=== PATIENT | male | born 1955 | race Caucasian/White ===

== ENCOUNTER 2017-08-18 09:37 | Observation (INO) | payer OTHER ==
[~2017-08-18] VITALS: Ht 172.7 cm; Wt 86.0 kg
[~2017-08-18 09:37] MED LIST: Bactrim 400-801 EACH PO; K-Dur20 MEQ PO; Keflex500 MG PO; LISHYD2025 PO; MECL25 PO
[2017-08-18] MEDS ORDERED: Prilosec Otc20 MG PO (10:20)
[2017-08-18 10:31] LABS: BASOPHILS ABSOLUTE AUTO 0.04 K/mm3 (0.00-0.23); BASOPHILS PERCENT AUTO 0 % (0-2); EOSINOPHILS ABSOLUTE AUTO 0.13 K/mm3 (0.00-0.68); EOSINOPHILS PERCENT AUTO 1 % (0-6); Hematocrit 44.1 % (37.0-53.0); Hemoglobin 14.8 g/dL (13.5-17.5); IMMATURE GRAN ABSOLUTE AUTO 0.03 K/mm3 (0.00-0.10); IMMATURE GRAN PERCENT AUTO 0 % (0-1); LYMPHOCYTES ABSOLUTE AUTO 2.19 K/mm3 (0.84-5.20); LYMPHOCYTES PERCENT AUTO 19 % (21-46); MONOCYTES ABSOLUTE AUTO 0.75 K/mm3 (0.16-1.47); MONOCYTES PERCENT AUTO 7 % (4-13); Mean Corpuscular HGB 31.8 pg (26.0-34.0); Mean Corpuscular HGB Conc 33.6 g/dL (31.5-36.5); Mean Corpuscular Volume 95 fL (80-100); NEUTROPHILS ABSOLUTE AUTO 8.21 K/mm3 (1.96-9.15); NEUTROPHILS PERCENT AUTO 72 % (41-73); RDW Coefficient Variation 12.1 % (11.7-14.2); RDW Standard Deviation 42.5 fL (35.1-46.3); Red Blood Cell Count 4.65 M/mm3 (4.30-5.90); White Blood Cell Count 11.35 K/mm3 (4.00-11.30)
[2017-08-18 10:40] LABS: Mean Platelet Volume 10.3 fL (9.1-12.4); Platelet Count 327 K/mm3 (150-400)
[2017-08-18 10:43] LABS: Alanine Aminotransfer (ALT/SGP 15 U/L (12-78); Albumin, Blood 3.7 g/dL (3.4-5.0); Albumin/Globulin Ratio 0.8 (0.8-1.8); Alk Phos 91 U/L (50-136); Anion Gap 10 mmol/L (6-16); Aspartate Aminotrans (AST/SGOT 17 U/L (12-37); Bilirubin, Total 0.6 mg/dL (0.1-1.0); Blood Urea Nitrogen 12 mg/dL (8-24); Bun/Creatinine Ratio 14.8 (12.0-20.0); CO2, Blood 24 mmol/L (21-32); Calcium, Blood 8.8 mg/dL (8.5-10.1); Chloride, Blood 103 mmol/L (98-108); Creatinine, Blood 0.81 mg/dL (0.60-1.20); Globulin, Blood 4.4 g/dL (2.2-4.0); Glomerular Filtration Rate >60 (60-); Glucose, Blood 77 mg/dL (70-99); Potassium, Blood 3.4 mmol/L (3.5-5.5); Sodium, Blood 137 mmol/L (136-145); Total Protein, Blood 8.1 g/dL (6.4-8.2)
[2017-08-18 10:57] LABS: Source, Urine Clean Catch
[2017-08-18 11:24] LABS: Bilirubin, Urine Neg (Neg); Blood, Urine 4+ (Neg); Glucose Qualitative, Urine Neg (Neg); Ketones, Urine 3+ (Neg); Leukocyte Esterase, Urine Neg (Neg); Nitrite, Urine Neg (Neg); Protein, Urine 2+ (Neg); Specific Gravity, Urine 1.015 (1.003-1.022); Urobilinogen, Urine NORM (Normal)
[2017-08-18 11:30] LABS: Appearance, Urine Clear (Clear); Color, Urine Yellow (P-Yellow)
[2017-08-18 11:31] LABS: Granular Casts 0-2 /lpf (0); Mucus Light (0-Heavy)
[2017-08-18 11:32] LABS: Bacteria Few /hpf; Squamous Epithelial Cells Few /hpf (Few); White Blood Cells, Urine 0-2 /hpf (0-5)
[2017-08-19 05:44] LABS: BASOPHILS ABSOLUTE AUTO 0.01 K/mm3 (0.00-0.23); BASOPHILS PERCENT AUTO 0 % (0-2); EOSINOPHILS PERCENT AUTO 0 % (0-6); Hematocrit 40.4 % (37.0-53.0); Hemoglobin 13.8 g/dL (13.5-17.5); IMMATURE GRAN ABSOLUTE AUTO 0.03 K/mm3 (0.00-0.10); IMMATURE GRAN PERCENT AUTO 0 % (0-1); LYMPHOCYTES ABSOLUTE AUTO 0.88 K/mm3 (0.84-5.20); LYMPHOCYTES PERCENT AUTO 8 % (21-46); MONOCYTES ABSOLUTE AUTO 0.11 K/mm3 (0.16-1.47); MONOCYTES PERCENT AUTO 1 % (4-13); Mean Corpuscular HGB 32.2 pg (26.0-34.0); Mean Corpuscular HGB Conc 34.2 g/dL (31.5-36.5); Mean Corpuscular Volume 94 fL (80-100); Mean Platelet Volume 10.1 fL (9.1-12.4); NEUTROPHILS ABSOLUTE AUTO 10.44 K/mm3 (1.96-9.15); NEUTROPHILS PERCENT AUTO 91 % (41-73); Platelet Count 332 K/mm3 (150-400); RDW Coefficient Variation 12.1 % (11.7-14.2); Red Blood Cell Count 4.29 M/mm3 (4.30-5.90); White Blood Cell Count 11.47 K/mm3 (4.00-11.30)
[2017-08-19 06:08] LABS: Anion Gap 11 mmol/L (6-16); Blood Urea Nitrogen 19 mg/dL (8-24); CO2, Blood 24 mmol/L (21-32); Calcium, Blood 8.3 mg/dL (8.5-10.1); Chloride, Blood 103 mmol/L (98-108); Glomerular Filtration Rate >60 (60-); Glucose, Blood 115 mg/dL (70-99); Potassium, Blood 3.8 mmol/L (3.5-5.5); Sodium, Blood 138 mmol/L (136-145)
[2017-08-19] MEDS ORDERED: LISI20 PO (12:22)
[2017-08-19] MEDS ORDERED: METO50ER PO (12:24)
[2017-08-19] MEDS ORDERED: SACC250C PO (12:25)
[2017-08-19] MEDS ORDERED: PRED20 PO (12:27)
[2017-08-19] MEDS ORDERED: AMOX875 PO (12:31)
[2017-09-11] MEDS ORDERED: Flagyl500 MG PO (17:16)
[2017-09-11] MEDS ORDERED: Cipro500 MG PO (17:16)
[2017-09-11] MEDS ORDERED: Zofran Odt4 MG PO (17:16)
== END 2017-08-19 13:08 | disposition home or self-care (01) ==
LOC: ER 09:37 → MEDS 09:38 → ER 12:05 → MEDS 15:32 → ENPENDDIS 08-19 11:00 → MEDS 08-19 13:08
PROVIDERS: Emergency Medicine; Internal Medicine
DX: R10.32 Left lower quadrant pain (principal); K59.00 Constipation, unspecified; I16.0 Hypertensive urgency; K21.9 Gastro-esophageal reflux disease without esophagitis; J44.9 Chronic obstructive pulmonary disease, unspecified; F17.200 Nicotine dependence, unspecified, uncomplicated; I72.9 Aneurysm of unspecified site; Z79.899 Other long term (current) drug therapy; Z88.5 Allergy status to narcotic agent; Z91.012 Allergy to eggs; Z87.11 Personal history of peptic ulcer disease; Z86.79 Personal history of other diseases of the circulatory system
CPT/HCPCS: 36415; 71045; 74176; 80048; 80053; 81001; 83690; 85025; 85651; 96361; 96365; 96366; 96367; 96375; 96376; 99285; G0378; J0295; J0744; J1940; J2270; J2405; J2920; J2930; J3480; J7030; J7120

== ENCOUNTER 2017-09-11 12:51 | Emergency (ER) | END 2017-09-11 18:49 | disposition home or self-care (01) ==

== ENCOUNTER 2017-09-14 13:22 | Inpatient (IN) | payer OTHER ==
[~2017-09-14] VITALS: Ht 170.2 cm; Wt 98.6 kg
[~2017-09-14 13:22] MED LIST changes: +AMOX875 PO; +Cipro500 MG PO; +Flagyl500 MG PO; +LISI20 PO; +METO50ER PO; +PRED20 PO; +Prilosec Otc20 MG PO; +SACC250C PO; +Zofran Odt4 MG PO
[2017-09-14 15:37] LABS: BASOPHILS ABSOLUTE AUTO 0.02 K/mm3 (0.00-0.23); BASOPHILS PERCENT AUTO 0 % (0-2); EOSINOPHILS ABSOLUTE AUTO 0.01 K/mm3 (0.00-0.68); EOSINOPHILS PERCENT AUTO 0 % (0-6); Hematocrit 43.1 % (37.0-53.0); Hemoglobin 14.9 g/dL (13.5-17.5); IMMATURE GRAN ABSOLUTE AUTO 0.06 K/mm3 (0.00-0.10); IMMATURE GRAN PERCENT AUTO 1 % (0-1); LYMPHOCYTES ABSOLUTE AUTO 1.06 K/mm3 (0.84-5.20); LYMPHOCYTES PERCENT AUTO 13 % (21-46); MONOCYTES ABSOLUTE AUTO 1.08 K/mm3 (0.16-1.47); MONOCYTES PERCENT AUTO 13 % (4-13); Mean Corpuscular HGB 31.8 pg (26.0-34.0); Mean Corpuscular HGB Conc 34.6 g/dL (31.5-36.5); Mean Corpuscular Volume 92 fL (80-100); Mean Platelet Volume 9.8 fL (9.1-12.4); NEUTROPHILS ABSOLUTE AUTO 6.27 K/mm3 (1.96-9.15); NEUTROPHILS PERCENT AUTO 74 % (41-73); Platelet Count 293 K/mm3 (150-400); RDW Coefficient Variation 12.6 % (11.7-14.2); RDW Standard Deviation 42.5 fL (35.1-46.3); Red Blood Cell Count 4.68 M/mm3 (4.30-5.90)
[2017-09-14 15:53] LABS: Alanine Aminotransfer (ALT/SGP 18 U/L (12-78); Albumin, Blood 3.2 g/dL (3.4-5.0); Albumin/Globulin Ratio 0.9 (0.8-1.8); Alk Phos 70 U/L (50-136); Anion Gap 13 mmol/L (6-16); Aspartate Aminotrans (AST/SGOT 21 U/L (12-37); Bilirubin, Total 0.5 mg/dL (0.1-1.0); Blood Urea Nitrogen 13 mg/dL (8-24); Bun/Creatinine Ratio 16.1 (12.0-20.0); CO2, Blood 25 mmol/L (21-32); Chloride, Blood 91 mmol/L (98-108); Creatinine, Blood 0.81 mg/dL (0.60-1.20); Globulin, Blood 3.6 g/dL (2.2-4.0); Glomerular Filtration Rate >60 (60-); Glucose, Blood 79 mg/dL (70-99); Sodium, Blood 129 mmol/L (136-145); Total Protein, Blood 6.8 g/dL (6.4-8.2)
[2017-09-14 16:22] LABS: U Amphetamine Screen Not Detected; U Barbituate Screen Not Detected; U Benzodiazapine Screen Not Detected; U Buprenorphine Screen Not Detected; U Cannabinoids Screen Not Detected; U Cocaine Screen Not Detected; U Methadone Screen Not Detected; U Methamphetamine Screen Not Detected; U Opiates Screen Not Detected; U Oxycodone Screen Not Detected; U Phencyclidine Screen Not Detected; U Propoxyphene Screen Not Detected
[2017-09-15 05:38] LABS: BASOPHILS ABSOLUTE AUTO 0.03 K/mm3 (0.00-0.23); BASOPHILS PERCENT AUTO 0 % (0-2); EOSINOPHILS ABSOLUTE AUTO 0.04 K/mm3 (0.00-0.68); EOSINOPHILS PERCENT AUTO 1 % (0-6); Hematocrit 39.6 % (37.0-53.0); Hemoglobin 13.8 g/dL (13.5-17.5); IMMATURE GRAN ABSOLUTE AUTO 0.08 K/mm3 (0.00-0.10); IMMATURE GRAN PERCENT AUTO 1 % (0-1); LYMPHOCYTES ABSOLUTE AUTO 1.42 K/mm3 (0.84-5.20); LYMPHOCYTES PERCENT AUTO 18 % (21-46); MONOCYTES ABSOLUTE AUTO 1.18 K/mm3 (0.16-1.47); MONOCYTES PERCENT AUTO 15 % (4-13); Mean Corpuscular HGB 32.1 pg (26.0-34.0); Mean Corpuscular HGB Conc 34.8 g/dL (31.5-36.5); Mean Corpuscular Volume 92 fL (80-100); Mean Platelet Volume 9.5 fL (9.1-12.4); NEUTROPHILS ABSOLUTE AUTO 5.12 K/mm3 (1.96-9.15); NEUTROPHILS PERCENT AUTO 65 % (41-73); Platelet Count 276 K/mm3 (150-400); RDW Coefficient Variation 12.8 % (11.7-14.2); White Blood Cell Count 7.87 K/mm3 (4.00-11.30)
[2017-09-15 06:07] LABS: Alanine Aminotransfer (ALT/SGP 18 U/L (12-78); Albumin, Blood 2.9 g/dL (3.4-5.0); Albumin/Globulin Ratio 0.9 (0.8-1.8); Alk Phos 61 U/L (50-136); Anion Gap 11 mmol/L (6-16); Aspartate Aminotrans (AST/SGOT 21 U/L (12-37); Bilirubin, Total 0.5 mg/dL (0.1-1.0); Blood Urea Nitrogen 12 mg/dL (8-24); Bun/Creatinine Ratio 15.3 (12.0-20.0); CO2, Blood 24 mmol/L (21-32); Calcium, Blood 7.6 mg/dL (8.5-10.1); Chloride, Blood 95 mmol/L (98-108); Creatinine, Blood 0.78 mg/dL (0.60-1.20); Globulin, Blood 3.2 g/dL (2.2-4.0); Glomerular Filtration Rate >60 (60-); Glucose, Blood 81 mg/dL (70-99); Potassium, Blood 3.4 mmol/L (3.5-5.5); Sodium, Blood 130 mmol/L (136-145); Total Protein, Blood 6.1 g/dL (6.4-8.2)
[2017-09-15 11:59] LABS: PCO2 Arterial 37.5 mmHg (35-45); PO2 Arterial 58.4 mmHg (80-100); pH Blood Arterial 7.45 (7.35-7.45)
[2017-09-16 05:42] LABS: BASOPHILS ABSOLUTE AUTO 0.02 K/mm3 (0.00-0.23); BASOPHILS PERCENT AUTO 0 % (0-2); EOSINOPHILS ABSOLUTE AUTO 0.05 K/mm3 (0.00-0.68); EOSINOPHILS PERCENT AUTO 1 % (0-6); Hematocrit 37.6 % (37.0-53.0); IMMATURE GRAN ABSOLUTE AUTO 0.12 K/mm3 (0.00-0.10); IMMATURE GRAN PERCENT AUTO 1 % (0-1); LYMPHOCYTES PERCENT AUTO 16 % (21-46); MONOCYTES ABSOLUTE AUTO 1.61 K/mm3 (0.16-1.47); MONOCYTES PERCENT AUTO 17 % (4-13); Mean Corpuscular HGB 31.9 pg (26.0-34.0); Mean Corpuscular HGB Conc 34.6 g/dL (31.5-36.5); Mean Corpuscular Volume 92 fL (80-100); NEUTROPHILS PERCENT AUTO 65 % (41-73); Platelet Count 279 K/mm3 (150-400); RDW Coefficient Variation 12.8 % (11.7-14.2); RDW Standard Deviation 43.8 fL (35.1-46.3); Red Blood Cell Count 4.07 M/mm3 (4.30-5.90)
[2017-09-16 06:02] LABS: Alanine Aminotransfer (ALT/SGP 20 U/L (12-78); Albumin, Blood 2.7 g/dL (3.4-5.0); Albumin/Globulin Ratio 0.8 (0.8-1.8); Alk Phos 57 U/L (50-136); Anion Gap 11 mmol/L (6-16); Aspartate Aminotrans (AST/SGOT 25 U/L (12-37); Bilirubin, Total 0.5 mg/dL (0.1-1.0); Blood Urea Nitrogen 8 mg/dL (8-24); Bun/Creatinine Ratio 11.9 (12.0-20.0); CO2, Blood 26 mmol/L (21-32); Calcium, Blood 7.5 mg/dL (8.5-10.1); Chloride, Blood 92 mmol/L (98-108); Creatinine, Blood 0.67 mg/dL (0.60-1.20); Globulin, Blood 3.2 g/dL (2.2-4.0); Glomerular Filtration Rate >60 (60-); Glucose, Blood 82 mg/dL (70-99); Potassium, Blood 3.3 mmol/L (3.5-5.5); Sodium, Blood 129 mmol/L (136-145); Total Protein, Blood 5.9 g/dL (6.4-8.2)
[2017-09-17 05:26] LABS: BASOPHILS ABSOLUTE AUTO 0.03 K/mm3 (0.00-0.23); BASOPHILS PERCENT AUTO 0 % (0-2); EOSINOPHILS ABSOLUTE AUTO 0.06 K/mm3 (0.00-0.68); EOSINOPHILS PERCENT AUTO 1 % (0-6); Hematocrit 38.5 % (37.0-53.0); Hemoglobin 13.3 g/dL (13.5-17.5); IMMATURE GRAN ABSOLUTE AUTO 0.12 K/mm3 (0.00-0.10); IMMATURE GRAN PERCENT AUTO 1 % (0-1); LYMPHOCYTES ABSOLUTE AUTO 1.19 K/mm3 (0.84-5.20); LYMPHOCYTES PERCENT AUTO 13 % (21-46); MONOCYTES PERCENT AUTO 15 % (4-13); Mean Corpuscular HGB 31.9 pg (26.0-34.0); Mean Corpuscular HGB Conc 34.5 g/dL (31.5-36.5); Mean Corpuscular Volume 92 fL (80-100); Mean Platelet Volume 10.3 fL (9.1-12.4); NEUTROPHILS ABSOLUTE AUTO 6.36 K/mm3 (1.96-9.15); NEUTROPHILS PERCENT AUTO 69 % (41-73); Platelet Count 305 K/mm3 (150-400); RDW Coefficient Variation 12.8 % (11.7-14.2); RDW Standard Deviation 43.7 fL (35.1-46.3); Red Blood Cell Count 4.17 M/mm3 (4.30-5.90); White Blood Cell Count 9.16 K/mm3 (4.00-11.30)
[2017-09-17 05:28] LABS: Anion Gap 12 mmol/L (6-16); Blood Urea Nitrogen 6 mg/dL (8-24); Bun/Creatinine Ratio 9.1 (12.0-20.0); CO2, Blood 27 mmol/L (21-32); Calcium, Blood 7.5 mg/dL (8.5-10.1); Chloride, Blood 91 mmol/L (98-108); Creatinine, Blood 0.66 mg/dL (0.60-1.20); Glomerular Filtration Rate >60 (60-); Glucose, Blood 90 mg/dL (70-99); Sodium, Blood 130 mmol/L (136-145)
[2017-09-17 17:47] LABS: PCO2 Arterial 31.1 mmHg (35-45); pH Blood Arterial 7.53 (7.35-7.45)
[2017-09-17 17:48] LABS: PO2 Arterial 48.2 mmHg (80-100)
[2017-09-18 04:24] LABS: BASOPHILS ABSOLUTE AUTO 0.04 K/mm3 (0.00-0.23); BASOPHILS PERCENT AUTO 0 % (0-2); EOSINOPHILS ABSOLUTE AUTO 0.01 K/mm3 (0.00-0.68); EOSINOPHILS PERCENT AUTO 0 % (0-6); Hematocrit 37.5 % (37.0-53.0); Hemoglobin 12.7 g/dL (13.5-17.5); IMMATURE GRAN ABSOLUTE AUTO 0.18 K/mm3 (0.00-0.10); IMMATURE GRAN PERCENT AUTO 1 % (0-1); LYMPHOCYTES ABSOLUTE AUTO 1.16 K/mm3 (0.84-5.20); LYMPHOCYTES PERCENT AUTO 6 % (21-46); MONOCYTES ABSOLUTE AUTO 1.24 K/mm3 (0.16-1.47); MONOCYTES PERCENT AUTO 7 % (4-13); Mean Corpuscular HGB 31.9 pg (26.0-34.0); Mean Corpuscular HGB Conc 33.9 g/dL (31.5-36.5); Mean Corpuscular Volume 94 fL (80-100); Mean Platelet Volume 9.9 fL (9.1-12.4); NEUTROPHILS ABSOLUTE AUTO 15.55 K/mm3 (1.96-9.15); NEUTROPHILS PERCENT AUTO 86 % (41-73); Platelet Count 321 K/mm3 (150-400); RDW Coefficient Variation 13.2 % (11.7-14.2); RDW Standard Deviation 45.7 fL (35.1-46.3); Red Blood Cell Count 3.98 M/mm3 (4.30-5.90); White Blood Cell Count 18.18 K/mm3 (4.00-11.30)
[2017-09-18 04:42] LABS: Anion Gap 12 mmol/L (6-16); Blood Urea Nitrogen 6 mg/dL (8-24); Bun/Creatinine Ratio 7.3 (12.0-20.0); CO2, Blood 27 mmol/L (21-32); Calcium, Blood 7.4 mg/dL (8.5-10.1); Chloride, Blood 92 mmol/L (98-108); Creatinine, Blood 0.82 mg/dL (0.60-1.20); Glomerular Filtration Rate >60 (60-); Glucose, Blood 77 mg/dL (70-99); Magnesium, Blood 1.8 mg/dL (1.6-2.4); Potassium, Blood 3.2 mmol/L (3.5-5.5); Sodium, Blood 131 mmol/L (136-145)
[2017-09-18 05:27] LABS: PCO2 Arterial 36.3 mmHg (35-45); PO2 Arterial 68.2 mmHg (80-100); pH Blood Arterial 7.47 (7.35-7.45)
[2017-09-18 09:35] LABS: Vancomycin, Trough 25.8 ug/mL (5.0-10.0)
[2017-09-19 03:35] LABS: BASOPHILS ABSOLUTE AUTO 0.02 K/mm3 (0.00-0.23); BASOPHILS PERCENT AUTO 0 % (0-2); EOSINOPHILS ABSOLUTE AUTO 0.06 K/mm3 (0.00-0.68); EOSINOPHILS PERCENT AUTO 1 % (0-6); Hematocrit 36.2 % (37.0-53.0); Hemoglobin 12.4 g/dL (13.5-17.5); IMMATURE GRAN ABSOLUTE AUTO 0.13 K/mm3 (0.00-0.10); IMMATURE GRAN PERCENT AUTO 1 % (0-1); LYMPHOCYTES ABSOLUTE AUTO 1.09 K/mm3 (0.84-5.20); LYMPHOCYTES PERCENT AUTO 9 % (21-46); MONOCYTES ABSOLUTE AUTO 1.36 K/mm3 (0.16-1.47); MONOCYTES PERCENT AUTO 12 % (4-13); Mean Corpuscular HGB 31.3 pg (26.0-34.0); Mean Corpuscular HGB Conc 34.3 g/dL (31.5-36.5); Mean Platelet Volume 9.7 fL (9.1-12.4); NEUTROPHILS PERCENT AUTO 77 % (41-73); Platelet Count 316 K/mm3 (150-400); RDW Coefficient Variation 13.1 % (11.7-14.2); RDW Standard Deviation 43.7 fL (35.1-46.3); Red Blood Cell Count 3.96 M/mm3 (4.30-5.90); White Blood Cell Count 11.56 K/mm3 (4.00-11.30)
[2017-09-19 03:38] LABS: Mean Corpuscular Volume 91 fL (80-100)
[2017-09-19 03:55] LABS: Alanine Aminotransfer (ALT/SGP 21 U/L (12-78); Albumin, Blood 2.5 g/dL (3.4-5.0); Albumin/Globulin Ratio 0.8 (0.8-1.8); Alk Phos 57 U/L (50-136); Anion Gap 15 mmol/L (6-16); Aspartate Aminotrans (AST/SGOT 29 U/L (12-37); Bilirubin, Total 0.9 mg/dL (0.1-1.0); Blood Urea Nitrogen 9 mg/dL (8-24); Bun/Creatinine Ratio 9.6 (12.0-20.0); CO2, Blood 24 mmol/L (21-32); Calcium, Blood 7.2 mg/dL (8.5-10.1); Chloride, Blood 94 mmol/L (98-108); Creatinine, Blood 0.93 mg/dL (0.60-1.20); Glomerular Filtration Rate >60 (60-); Glucose, Blood 73 mg/dL (70-99); Potassium, Blood 2.5 mmol/L (3.5-5.5); Sodium, Blood 133 mmol/L (136-145); Total Protein, Blood 5.5 g/dL (6.4-8.2)
[2017-09-19 19:54] LABS: Vancomycin, Trough 18.8 ug/mL (5.0-10.0)
[2017-09-20 03:28] LABS: BASOPHILS ABSOLUTE AUTO 0.02 K/mm3 (0.00-0.23); BASOPHILS PERCENT AUTO 0 % (0-2); EOSINOPHILS ABSOLUTE AUTO 0.05 K/mm3 (0.00-0.68); EOSINOPHILS PERCENT AUTO 0 % (0-6); Hematocrit 38.6 % (37.0-53.0); Hemoglobin 13.2 g/dL (13.5-17.5); IMMATURE GRAN ABSOLUTE AUTO 0.13 K/mm3 (0.00-0.10); IMMATURE GRAN PERCENT AUTO 1 % (0-1); LYMPHOCYTES ABSOLUTE AUTO 1.21 K/mm3 (0.84-5.20); LYMPHOCYTES PERCENT AUTO 10 % (21-46); MONOCYTES ABSOLUTE AUTO 1.23 K/mm3 (0.16-1.47); MONOCYTES PERCENT AUTO 11 % (4-13); Mean Corpuscular HGB 31.1 pg (26.0-34.0); Mean Corpuscular HGB Conc 34.2 g/dL (31.5-36.5); Mean Corpuscular Volume 91 fL (80-100); Mean Platelet Volume 9.7 fL (9.1-12.4); NEUTROPHILS ABSOLUTE AUTO 9.05 K/mm3 (1.96-9.15); NEUTROPHILS PERCENT AUTO 77 % (41-73); Platelet Count 370 K/mm3 (150-400); RDW Coefficient Variation 13.2 % (11.7-14.2); RDW Standard Deviation 44.3 fL (35.1-46.3); Red Blood Cell Count 4.25 M/mm3 (4.30-5.90); White Blood Cell Count 11.69 K/mm3 (4.00-11.30)
[2017-09-20 03:47] LABS: Anion Gap 13 mmol/L (6-16); Blood Urea Nitrogen 7 mg/dL (8-24); Bun/Creatinine Ratio 8.5 (12.0-20.0); CO2, Blood 23 mmol/L (21-32); Calcium, Blood 7.4 mg/dL (8.5-10.1); Chloride, Blood 97 mmol/L (98-108); Creatinine, Blood 0.82 mg/dL (0.60-1.20); Glomerular Filtration Rate >60 (60-); Glucose, Blood 90 mg/dL (70-99); Potassium, Blood 2.6 mmol/L (3.5-5.5); Sodium, Blood 133 mmol/L (136-145)
[2017-09-21 05:11] LABS: Hematocrit 38.9 % (37.0-53.0); Hemoglobin 13.2 g/dL (13.5-17.5); Mean Corpuscular HGB 31.5 pg (26.0-34.0); Mean Corpuscular HGB Conc 33.9 g/dL (31.5-36.5); Mean Corpuscular Volume 93 fL (80-100); Platelet Count 350 K/mm3 (150-400); RDW Coefficient Variation 14.2 % (11.7-14.2); RDW Standard Deviation 48.1 fL (35.1-46.3); Red Blood Cell Count 4.19 M/mm3 (4.30-5.90); White Blood Cell Count 11.32 K/mm3 (4.00-11.30)
[2017-09-21 05:33] LABS: Albumin, Blood 2.5 g/dL (3.4-5.0); Anion Gap 13 mmol/L (6-16); Blood Urea Nitrogen 10 mg/dL (8-24); Bun/Creatinine Ratio 6.9 (12.0-20.0); CO2, Blood 22 mmol/L (21-32); Calcium, Blood 7.2 mg/dL (8.5-10.1); Chloride, Blood 99 mmol/L (98-108); Creatinine, Blood 1.44 mg/dL (0.60-1.20); Glomerular Filtration Rate 53 (60-); Glucose, Blood 85 mg/dL (70-99); Magnesium, Blood 1.8 mg/dL (1.6-2.4); Phosphorus, Blood 2.2 mg/dL (2.5-4.9); Potassium, Blood 3.1 mmol/L (3.5-5.5); Sodium, Blood 134 mmol/L (136-145)
[2017-09-22 04:38] LABS: Bun/Creatinine Ratio 7.9 (12.0-20.0); Calcium, Blood 7.4 mg/dL (8.5-10.1); Creatinine, Blood 1.52 mg/dL (0.60-1.20); Magnesium, Blood 2.1 mg/dL (1.6-2.4); Phosphorus, Blood 2.5 mg/dL (2.5-4.9)
[2017-09-23 01:35] LABS: BASOPHILS ABSOLUTE AUTO 0.01 K/mm3 (0.00-0.23); BASOPHILS PERCENT AUTO 0 % (0-2); EOSINOPHILS ABSOLUTE AUTO 0.05 K/mm3 (0.00-0.68); EOSINOPHILS PERCENT AUTO 1 % (0-6); Hematocrit 36.7 % (37.0-53.0); Hemoglobin 12.5 g/dL (13.5-17.5); IMMATURE GRAN ABSOLUTE AUTO 0.06 K/mm3 (0.00-0.10); IMMATURE GRAN PERCENT AUTO 1 % (0-1); LYMPHOCYTES ABSOLUTE AUTO 1.39 K/mm3 (0.84-5.20); LYMPHOCYTES PERCENT AUTO 15 % (21-46); MONOCYTES ABSOLUTE AUTO 1.31 K/mm3 (0.16-1.47); MONOCYTES PERCENT AUTO 14 % (4-13); Mean Corpuscular HGB 31.6 pg (26.0-34.0); Mean Corpuscular HGB Conc 34.1 g/dL (31.5-36.5); Mean Corpuscular Volume 93 fL (80-100); Mean Platelet Volume 9.7 fL (9.1-12.4); NEUTROPHILS ABSOLUTE AUTO 6.62 K/mm3 (1.96-9.15); NEUTROPHILS PERCENT AUTO 70 % (41-73); Platelet Count 319 K/mm3 (150-400); RDW Coefficient Variation 14.4 % (11.7-14.2); RDW Standard Deviation 49.1 fL (35.1-46.3); Red Blood Cell Count 3.95 M/mm3 (4.30-5.90); White Blood Cell Count 9.44 K/mm3 (4.00-11.30)
[2017-09-23 01:54] LABS: Alanine Aminotransfer (ALT/SGP 16 U/L (12-78); Albumin, Blood 2.4 g/dL (3.4-5.0); Albumin/Globulin Ratio 0.7 (0.8-1.8); Alk Phos 48 U/L (50-136); Anion Gap 7 mmol/L (6-16); Aspartate Aminotrans (AST/SGOT 24 U/L (12-37); Bilirubin, Total 0.5 mg/dL (0.1-1.0); Blood Urea Nitrogen 16 mg/dL (8-24); CO2, Blood 28 mmol/L (21-32); Calcium, Blood 7.4 mg/dL (8.5-10.1); Chloride, Blood 103 mmol/L (98-108); Globulin, Blood 3.5 g/dL (2.2-4.0); Glomerular Filtration Rate 47 (60-); Glucose, Blood 130 mg/dL (70-99); Magnesium, Blood 2.2 mg/dL (1.6-2.4); Phosphorus, Blood 1.9 mg/dL (2.5-4.9); Sodium, Blood 138 mmol/L (136-145); Total Protein, Blood 5.9 g/dL (6.4-8.2); Triglycerides 122 mg/dL (30-160)
[2017-09-23 05:47] LABS: PCO2 Arterial 37.2 mmHg (35-45); PO2 Arterial 59.4 mmHg (80-100); pH Blood Arterial 7.49 (7.35-7.45)
[2017-09-23 18:18] LABS: Bun/Creatinine Ratio 12.4 (12.0-20.0); Calcium, Blood 7.7 mg/dL (8.5-10.1); Creatinine, Blood 1.61 mg/dL (0.60-1.20); Potassium, Blood 2.8 mmol/L (3.5-5.5)
[2017-09-24 04:53] LABS: Albumin, Blood 2.3 g/dL (3.4-5.0); Anion Gap 8 mmol/L (6-16); Blood Urea Nitrogen 20 mg/dL (8-24); Bun/Creatinine Ratio 13.5 (12.0-20.0); CO2, Blood 29 mmol/L (21-32); Calcium, Blood 7.5 mg/dL (8.5-10.1); Chloride, Blood 102 mmol/L (98-108); Creatinine, Blood 1.48 mg/dL (0.60-1.20); Glomerular Filtration Rate 51 (60-); Glucose, Blood 116 mg/dL (70-99); Magnesium, Blood 2.2 mg/dL (1.6-2.4); Phosphorus, Blood 2.2 mg/dL (2.5-4.9); Sodium, Blood 139 mmol/L (136-145)
[2017-09-25 05:18] LABS: BASOPHILS ABSOLUTE AUTO 0.01 K/mm3 (0.00-0.23); BASOPHILS PERCENT AUTO 0 % (0-2); EOSINOPHILS ABSOLUTE AUTO 0.03 K/mm3 (0.00-0.68); EOSINOPHILS PERCENT AUTO 0 % (0-6); Hematocrit 33.6 % (37.0-53.0); Hemoglobin 11.6 g/dL (13.5-17.5); IMMATURE GRAN ABSOLUTE AUTO 0.05 K/mm3 (0.00-0.10); IMMATURE GRAN PERCENT AUTO 1 % (0-1); LYMPHOCYTES PERCENT AUTO 17 % (21-46); MONOCYTES ABSOLUTE AUTO 0.99 K/mm3 (0.16-1.47); MONOCYTES PERCENT AUTO 13 % (4-13); Mean Corpuscular HGB 31.9 pg (26.0-34.0); Mean Corpuscular HGB Conc 34.5 g/dL (31.5-36.5); Mean Corpuscular Volume 92 fL (80-100); Mean Platelet Volume 9.4 fL (9.1-12.4); NEUTROPHILS ABSOLUTE AUTO 5.22 K/mm3 (1.96-9.15); NEUTROPHILS PERCENT AUTO 69 % (41-73); Platelet Count 295 K/mm3 (150-400); RDW Coefficient Variation 14.6 % (11.7-14.2); Red Blood Cell Count 3.64 M/mm3 (4.30-5.90)
[2017-09-25 05:35] LABS: Albumin, Blood 2.3 g/dL (3.4-5.0); Anion Gap 10 mmol/L (6-16); Blood Urea Nitrogen 19 mg/dL (8-24); Bun/Creatinine Ratio 14.8 (12.0-20.0); CO2, Blood 27 mmol/L (21-32); Calcium, Blood 7.3 mg/dL (8.5-10.1); Chloride, Blood 102 mmol/L (98-108); Creatinine, Blood 1.28 mg/dL (0.60-1.20); Glomerular Filtration Rate >60 (60-); Glucose, Blood 107 mg/dL (70-99); Magnesium, Blood 1.9 mg/dL (1.6-2.4); Potassium, Blood 2.7 mmol/L (3.5-5.5); Sodium, Blood 139 mmol/L (136-145)
[2017-09-26 05:51] LABS: Albumin, Blood 2.6 g/dL (3.4-5.0); Anion Gap 9 mmol/L (6-16); Blood Urea Nitrogen 17 mg/dL (8-24); Bun/Creatinine Ratio 13.2 (12.0-20.0); CO2, Blood 25 mmol/L (21-32); Calcium, Blood 7.5 mg/dL (8.5-10.1); Chloride, Blood 102 mmol/L (98-108); Creatinine, Blood 1.29 mg/dL (0.60-1.20); Glomerular Filtration Rate 60 (60-); Glucose, Blood 89 mg/dL (70-99); Potassium, Blood 2.6 mmol/L (3.5-5.5); Sodium, Blood 136 mmol/L (136-145)
[2017-09-27 04:31] LABS: Hemoglobin 11.3 g/dL (13.5-17.5); Mean Corpuscular HGB 32.2 pg (26.0-34.0); Mean Corpuscular HGB Conc 34.2 g/dL (31.5-36.5); Mean Corpuscular Volume 94 fL (80-100); Platelet Count 215 K/mm3 (150-400); RDW Coefficient Variation 15.4 % (11.7-14.2); RDW Standard Deviation 52.2 fL (35.1-46.3); Red Blood Cell Count 3.51 M/mm3 (4.30-5.90); White Blood Cell Count 3.65 K/mm3 (4.00-11.30)
[2017-09-27 04:50] LABS: Albumin, Blood 2.4 g/dL (3.4-5.0); Anion Gap 10 mmol/L (6-16); Blood Urea Nitrogen 16 mg/dL (8-24); Bun/Creatinine Ratio 10.7 (12.0-20.0); CO2, Blood 24 mmol/L (21-32); Calcium, Blood 6.7 mg/dL (8.5-10.1); Chloride, Blood 101 mmol/L (98-108); Creatinine, Blood 1.49 mg/dL (0.60-1.20); Glomerular Filtration Rate 50 (60-); Glucose, Blood 95 mg/dL (70-99); Phosphorus, Blood 4.4 mg/dL (2.5-4.9); Potassium, Blood 3.2 mmol/L (3.5-5.5); Sodium, Blood 135 mmol/L (136-145)
[2017-09-27] MEDS ORDERED: Acetaminophen325 M1 PO (13:08)
[2017-09-27] MEDS ORDERED: Melatonin5 M1 PO (13:09)
[2017-09-27] MEDS ORDERED: Kaon-Cl40 MEQ/15 PO (13:10)
[2017-09-27] MEDS ORDERED: VANCOMYCIN125 MG/2.5 PO (13:11)
[2017-09-27] MEDS ORDERED: SACC250C PO (13:13)
== END 2017-09-27 15:25 | disposition home or self-care (01) | DRG 371 ==
LOC: ER 13:22 → MEDS 18:51 → PCU 18:51 → SURS 18:51 → ICUE 09-17 18:07 → PCU 09-19 15:38 → MEDS 09-25 17:31 → ENPENDDIS 09-27 10:56 → MEDS 09-27 15:25
PROVIDERS: Emergency Medicine; Internal Medicine; Pharmacist; Surgery
PROC: 3E0234Z Introduction of Serum, Toxoid and Vaccine into Muscle, Percutaneous Approach (ICD-10-PCS; 2017-09-15)
PROC: 3E0336Z Introduction of Nutritional Substance into Peripheral Vein, Percutaneous Approach (ICD-10-PCS; principal; 2017-09-22)
DX: A04.72 Enterocolitis due to Clostridium difficile, not specified as recurrent (principal); J96.01 Acute respiratory failure with hypoxia; R78.81 Bacteremia; E87.1 Hypo-osmolality and hyponatremia; J44.1 Chronic obstructive pulmonary disease with (acute) exacerbation; E87.6 Hypokalemia; Z23 Encounter for immunization; Z87.11 Personal history of peptic ulcer disease; I10 Essential (primary) hypertension; E83.39 Other disorders of phosphorus metabolism; E66.9 Obesity, unspecified; G47.00 Insomnia, unspecified
CPT/HCPCS: 36415; 36569; 36600; 71045; 71046; 71260; 74018; 74177; 80048; 80053; 80069; 80202; 82803; 82947; 83690; 83735; 83880; 84100; 84132; 84478; 85025; 85027; 87040; 87493; 93005; 93010; 94640; 94760; 96361; 96374; 96375; 96376; 99285; C1751; C9113; J0360; J0744; J1170; J1650; J1885; J1940; J2001; J2060; J2405; J2543; J3370; J3411; J3480; J7030; J7050; J7060; J7120; Q9967

== ENCOUNTER 2017-09-27 19:34 | Inpatient (IN) | payer OTHER ==
[~2017-09-27] VITALS: Ht 170.2 cm; Wt 82.2 kg
[~2017-09-27 19:34] MED LIST changes: +Acetaminophen325 M1 PO; +Kaon-Cl40 MEQ/15 PO; +Melatonin5 M1 PO; +VANCOMYCIN125 MG/2.5 PO
[2017-09-27 20:04] LABS: Source, Urine Catheter
[2017-09-27 20:08] LABS: BASOPHILS ABSOLUTE AUTO 0.01 K/mm3 (0.00-0.23); BASOPHILS PERCENT AUTO 0 % (0-2); EOSINOPHILS PERCENT AUTO 0 % (0-6); Hematocrit 40.1 % (37.0-53.0); Hemoglobin 13.5 g/dL (13.5-17.5); Mean Corpuscular HGB 31.6 pg (26.0-34.0); Mean Corpuscular HGB Conc 33.7 g/dL (31.5-36.5); Mean Corpuscular Volume 94 fL (80-100); Mean Platelet Volume 10.4 fL (9.1-12.4); Platelet Count 224 K/mm3 (150-400); RDW Coefficient Variation 15.2 % (11.7-14.2); RDW Standard Deviation 52.3 fL (35.1-46.3); Red Blood Cell Count 4.27 M/mm3 (4.30-5.90); White Blood Cell Count 4.41 K/mm3 (4.00-11.30)
[2017-09-27 20:09] LABS: Bilirubin, Urine Neg (Neg); Blood, Urine 4+ (Neg); Glucose Qualitative, Urine Neg (Neg); IMMATURE GRAN ABSOLUTE AUTO 0.04 K/mm3 (0.00-0.10); IMMATURE GRAN PERCENT AUTO 1 % (0-1); Ketones, Urine Neg (Neg); LYMPHOCYTES ABSOLUTE AUTO 0.23 K/mm3 (0.84-5.20); LYMPHOCYTES PERCENT AUTO 5 % (21-46); Leukocyte Esterase, Urine 1+ (Neg); MONOCYTES ABSOLUTE AUTO 0.11 K/mm3 (0.16-1.47); MONOCYTES PERCENT AUTO 3 % (4-13); NEUTROPHILS ABSOLUTE AUTO 4.02 K/mm3 (1.96-9.15); NEUTROPHILS PERCENT AUTO 91 % (41-73); Nitrite, Urine Neg (Neg); Protein, Urine 2+ (Neg); Urobilinogen, Urine NORM (Normal)
[2017-09-27 20:16] LABS: Appearance, Urine Clear (Clear); Color, Urine Yellow (P-Yellow)
[2017-09-27 20:17] LABS: Bacteria Few /hpf; Squamous Epithelial Cells Not Seen /hpf (Few)
[2017-09-27 20:18] LABS: Granular Casts 0-2 /lpf (0); WBC Cast 0-2 /lpf (0)
[2017-09-27 20:20] LABS: International Normalized Ratio 1.61
[2017-09-27 20:28] LABS: Albumin, Blood 3.1 g/dL (3.4-5.0); Albumin/Globulin Ratio 0.8 (0.8-1.8); Bilirubin, Total 0.7 mg/dL (0.1-1.0); Bun/Creatinine Ratio 11.5 (12.0-20.0); Calcium, Blood 7.2 mg/dL (8.5-10.1); Creatinine, Blood 1.56 mg/dL (0.60-1.20); Total Protein, Blood 7.1 g/dL (6.4-8.2)
[2017-09-27 20:40] LABS: Influenza A Positive (NEGATIVE); Influenza B Negative (NEGATIVE)
[2017-09-28 00:04] LABS: Adenovirus F 40/41 Not Detected (NOT DETECT); Astrovirus Not Detected (NOT DETECT); Campylobacter Sp Not Detected (NOT DETECT); Cryptosporidium Not Detected (NOT DETECT); Cyclospora Cayetanensis Not Detected (NOT DETECT); E. Coli O157 Not Detected (NOT DETECT); Entamoeba Histolytica Not Detected (NOT DETECT); Enteroaggregative E. coli-EAEC Not Detected (NOT DETECT); Enteropathogenic E. coli-EPEC Not Detected (NOT DETECT); Enterotoxigenic E. coli-ETEC Not Detected (NOT DETECT); Giardia Lamblia Not Detected (NOT DETECT); Norovirus GI/GII Not Detected (NOT DETECT); Plesiomonas Shigelloides Not Detected (NOT DETECT); Rotavirus A Not Detected (NOT DETECT); Salmonella Sp Not Detected (NOT DETECT); Sapovirus Not Detected (NOT DETECT); Shiga Toxin-prod E. coli-STEC Not Detected (NOT DETECT); Shigella/Enteroin E. coli-EIEC Not Detected (NOT DETECT); Vibrio Cholerae Not Detected (NOT DETECT); Vibrio Sp Not Detected (NOT DETECT); Yersinia Enterocolitica Not Detected (NOT DETECT)
[2017-09-28 04:59] LABS: Bun/Creatinine Ratio 11.3 (12.0-20.0); Calcium, Blood 6.7 mg/dL (8.5-10.1); Creatinine, Blood 1.42 mg/dL (0.60-1.20); Magnesium, Blood 1.5 mg/dL (1.6-2.4); Potassium, Blood 3.3 mmol/L (3.5-5.5)
[2017-09-28 12:37] LABS: Bun/Creatinine Ratio 10.4 (12.0-20.0); Calcium, Blood 7.1 mg/dL (8.5-10.1); Creatinine, Blood 1.34 mg/dL (0.60-1.20); Magnesium, Blood 1.7 mg/dL (1.6-2.4); Potassium, Blood 3.4 mmol/L (3.5-5.5)
[2017-09-28 21:38] LABS: Vancomycin, Trough 8.4 ug/mL (5.0-10.0)
[2017-09-29 05:14] LABS: BASOPHILS PERCENT AUTO 0 % (0-2); EOSINOPHILS PERCENT AUTO 0 % (0-6); Hematocrit 40.6 % (37.0-53.0); Hemoglobin 13.6 g/dL (13.5-17.5); Mean Corpuscular HGB 31.2 pg (26.0-34.0); Mean Corpuscular HGB Conc 33.5 g/dL (31.5-36.5); Mean Corpuscular Volume 93 fL (80-100); Mean Platelet Volume 10.9 fL (9.1-12.4); Platelet Count 171 K/mm3 (150-400); RDW Standard Deviation 51.4 fL (35.1-46.3); Red Blood Cell Count 4.36 M/mm3 (4.30-5.90)
[2017-09-29 05:16] LABS: IMMATURE GRAN ABSOLUTE AUTO 0.03 K/mm3 (0.00-0.10); IMMATURE GRAN PERCENT AUTO 1 % (0-1); LYMPHOCYTES ABSOLUTE AUTO 0.48 K/mm3 (0.84-5.20); LYMPHOCYTES PERCENT AUTO 18 % (21-46); MONOCYTES PERCENT AUTO 4 % (4-13); NEUTROPHILS ABSOLUTE AUTO 2.09 K/mm3 (1.96-9.15); NEUTROPHILS PERCENT AUTO 77 % (41-73)
[2017-09-29 05:43] LABS: Magnesium, Blood 1.6 mg/dL (1.6-2.4)
[2017-09-29 05:48] LABS: Anion Gap 13 mmol/L (6-16); Blood Urea Nitrogen 14 mg/dL (8-24); Bun/Creatinine Ratio 12.3 (12.0-20.0); CO2, Blood 20 mmol/L (21-32); Calcium, Blood 6.6 mg/dL (8.5-10.1); Chloride, Blood 97 mmol/L (98-108); Creatinine, Blood 1.14 mg/dL (0.60-1.20); Glomerular Filtration Rate >60 (60-); Glucose, Blood 67 mg/dL (70-99); Potassium, Blood 3.1 mmol/L (3.5-5.5); Sodium, Blood 130 mmol/L (136-145)
[2017-09-30 05:42] LABS: Hematocrit 37.4 % (37.0-53.0); Hemoglobin 13.1 g/dL (13.5-17.5); Mean Corpuscular HGB 31.6 pg (26.0-34.0); RDW Coefficient Variation 14.6 % (11.7-14.2); RDW Standard Deviation 47.8 fL (35.1-46.3); Red Blood Cell Count 4.15 M/mm3 (4.30-5.90); White Blood Cell Count 2.15 K/mm3 (4.00-11.30)
[2017-09-30 05:44] LABS: Mean Corpuscular Volume 90 fL (80-100); Mean Platelet Volume 10.8 fL (9.1-12.4); Platelet Count 140 K/mm3 (150-400)
[2017-09-30 06:29] LABS: Anion Gap 12 mmol/L (6-16); Blood Urea Nitrogen 16 mg/dL (8-24); Bun/Creatinine Ratio 14.5 (12.0-20.0); CO2, Blood 22 mmol/L (21-32); Calcium, Blood 6.8 mg/dL (8.5-10.1); Chloride, Blood 95 mmol/L (98-108); Glomerular Filtration Rate >60 (60-); Glucose, Blood 72 mg/dL (70-99); Potassium, Blood 2.8 mmol/L (3.5-5.5); Sodium, Blood 129 mmol/L (136-145)
[2017-09-30 06:36] LABS: BAND PERCENT MAN 4 % (0-8); BASOPHILS PERCENT MAN 0 % (0-2); EOSINOPHILS PERCENT MAN 0 % (0-6); LYMPHOCYTES % ATYPICAL MANUAL 1 % (0-0); LYMPHOCYTES ABSOLUTE MAN 0.47 K/mm3 (0.84-5.20); LYMPHOCYTES PERCENT MAN 21 % (21-46); MONOCYTES ABSOLUTE MAN 0.17 K/mm3 (0.16-1.47); MONOCYTES PERCENT MAN 8 % (4-13); SEG NEUTROPHILS PERCENT MAN 66 % (41-73); TOTAL CELLS COUNTED 100
[2017-10-01 04:41] LABS: Hematocrit 36.3 % (37.0-53.0); Hemoglobin 12.7 g/dL (13.5-17.5); Mean Corpuscular HGB 31.6 pg (26.0-34.0); Mean Corpuscular Volume 90 fL (80-100); Mean Platelet Volume 11.2 fL (9.1-12.4); Platelet Count 108 K/mm3 (150-400); RDW Coefficient Variation 14.4 % (11.7-14.2); RDW Standard Deviation 47.9 fL (35.1-46.3); Red Blood Cell Count 4.02 M/mm3 (4.30-5.90)
[2017-10-01 04:56] LABS: Anion Gap 11 mmol/L (6-16); Blood Urea Nitrogen 12 mg/dL (8-24); Bun/Creatinine Ratio 12.4 (12.0-20.0); CO2, Blood 24 mmol/L (21-32); Calcium, Blood 6.8 mg/dL (8.5-10.1); Chloride, Blood 97 mmol/L (98-108); Creatinine, Blood 0.97 mg/dL (0.60-1.20); Glomerular Filtration Rate >60 (60-); Glucose, Blood 70 mg/dL (70-99); Magnesium, Blood 1.5 mg/dL (1.6-2.4); Potassium, Blood 3.1 mmol/L (3.5-5.5); Sodium, Blood 132 mmol/L (136-145)
[2017-10-01 05:16] LABS: BAND PERCENT MAN 3 % (0-8); BASOPHILS PERCENT MAN 0 % (0-2); EOSINOPHILS PERCENT MAN 0 % (0-6); LYMPHOCYTES % ATYPICAL MANUAL 3 % (0-0); LYMPHOCYTES ABSOLUTE MAN 0.29 K/mm3 (0.84-5.20); LYMPHOCYTES PERCENT MAN 10 % (21-46); MONOCYTES PERCENT MAN 0 % (4-13); SEG NEUTROPHILS PERCENT MAN 84 % (41-73); TOTAL CELLS COUNTED 100
[2017-10-02 05:38] LABS: Anion Gap 9 mmol/L (6-16); Blood Urea Nitrogen 11 mg/dL (8-24); Bun/Creatinine Ratio 12.9 (12.0-20.0); CO2, Blood 23 mmol/L (21-32); Calcium, Blood 7.1 mg/dL (8.5-10.1); Chloride, Blood 104 mmol/L (98-108); Creatinine, Blood 0.85 mg/dL (0.60-1.20); Glomerular Filtration Rate >60 (60-); Glucose, Blood 72 mg/dL (70-99); Sodium, Blood 136 mmol/L (136-145)
[2017-10-02] MEDS ORDERED: ACET325 PO (10:08)
[2017-10-02] MEDS ORDERED: LISI20 PO (10:08)
[2017-10-02] MEDS ORDERED: LOPE2C PO ×2 (10:09→10:20)
[2017-10-02] MEDS ORDERED: MELA3 PO (10:10)
[2017-10-02] MEDS ORDERED: ONDA4ODT MM (10:11)
[2017-10-02] MEDS ORDERED: METO100ER PO (10:11)
[2017-10-02] MEDS ORDERED: POTA20LUD PO (10:14)
[2017-10-02] MEDS ORDERED: SACC250C PO (10:15)
[2017-10-02] MEDS ORDERED: POLY500 PO (10:16)
[2017-10-02] MEDS ORDERED: IBUP600 PO (20:26)
[2017-10-02] MEDS ORDERED: Lomotil Tablet1 EACH PO (20:28)
[2017-10-02] MEDS ORDERED: Secura Protecti50 GM TOP (20:31)
[2017-10-02] MEDS ORDERED: TUMS300 MG PO (20:34)
[2017-10-03] MEDS ORDERED: POTCHL20ER PO (11:10)
[2017-10-03] MEDS ORDERED: ALBU90OI INH (11:11)
== END 2017-10-02 11:19 | disposition home or self-care (01) | DRG 871 ==
LOC: ER 19:34 → ICUE 19:35 → ICUW 19:35 → ICUE 23:52 → MEDS 09-28 15:45
PROVIDERS: Hospitalist; Internal Medicine; Physician Assistant
DX: A41.9 Sepsis, unspecified organism (principal); J96.21 Acute and chronic respiratory failure with hypoxia; N18.3 Chronic kidney disease, stage 3 (moderate); A04.72 Enterocolitis due to Clostridium difficile, not specified as recurrent; E87.1 Hypo-osmolality and hyponatremia; J10.1 Influenza due to other identified influenza virus with other respiratory manifestations; I12.9 Hypertensive chronic kidney disease with stage 1 through stage 4 chronic kidney disease, or unspecified chronic kidney disease; E86.0 Dehydration; E87.6 Hypokalemia; E83.42 Hypomagnesemia; E83.51 Hypocalcemia; Z87.891 Personal history of nicotine dependence; Z88.8 Allergy status to other drugs, medicaments and biological substances; Z91.012 Allergy to eggs; Z79.899 Other long term (current) drug therapy
CPT/HCPCS: 36415; 71045; 80048; 80053; 80202; 81001; 82330; 83605; 83735; 84145; 85025; 85610; 85730; 87040; 87086; 87507; 87804; 93005; 93010; 94761; 96365; 96366; 96367; 96368; 96372; 96376; 97161; 97530; 99285; G0378; G8978; G8979; J0610; J1650; J2001; J2543; J3370; J3475; J3480; J7030; J7040; J7050; J7120

== ENCOUNTER 2017-10-02 17:20 | Observation (INO) | payer OTHER ==
[~2017-10-02] VITALS: Ht 170.2 cm; Wt 80.3 kg
[~2017-10-02 17:20] MED LIST changes: +ACET325 PO; +LOPE2C PO; +MELA3 PO; +METO100ER PO; +ONDA4ODT MM; +POLY500 PO; +POTA20LUD PO
[2017-10-02] MEDS ORDERED: IBUP600 PO (20:26)
[2017-10-02] MEDS ORDERED: Lomotil Tablet1 EACH PO (20:28)
[2017-10-02] MEDS ORDERED: Secura Protecti50 GM TOP (20:31)
[2017-10-02] MEDS ORDERED: TUMS300 MG PO (20:34)
[2017-10-03 05:37] LABS: BASOPHILS PERCENT AUTO 0 % (0-2); EOSINOPHILS PERCENT AUTO 0 % (0-6); Hematocrit 37.1 % (37.0-53.0); Mean Corpuscular HGB 31.9 pg (26.0-34.0); Mean Corpuscular Volume 91 fL (80-100); RDW Coefficient Variation 14.7 % (11.7-14.2); RDW Standard Deviation 49.1 fL (35.1-46.3); Red Blood Cell Count 4.08 M/mm3 (4.30-5.90); White Blood Cell Count 2.88 K/mm3 (4.00-11.30)
[2017-10-03 05:40] LABS: IMMATURE GRAN ABSOLUTE AUTO 0.02 K/mm3 (0.00-0.10); IMMATURE GRAN PERCENT AUTO 1 % (0-1); LYMPHOCYTES ABSOLUTE AUTO 0.65 K/mm3 (0.84-5.20); LYMPHOCYTES PERCENT AUTO 23 % (21-46); MONOCYTES ABSOLUTE AUTO 0.14 K/mm3 (0.16-1.47); MONOCYTES PERCENT AUTO 5 % (4-13); Mean Platelet Volume 11.7 fL (9.1-12.4); NEUTROPHILS ABSOLUTE AUTO 2.07 K/mm3 (1.96-9.15); NEUTROPHILS PERCENT AUTO 72 % (41-73); Platelet Count 71 K/mm3 (150-400)
[2017-10-03 05:59] LABS: Anion Gap 11 mmol/L (6-16); Blood Urea Nitrogen 9 mg/dL (8-24); Bun/Creatinine Ratio 11.7 (12.0-20.0); CO2, Blood 21 mmol/L (21-32); Calcium, Blood 7.1 mg/dL (8.5-10.1); Chloride, Blood 104 mmol/L (98-108); Creatinine, Blood 0.77 mg/dL (0.60-1.20); Glomerular Filtration Rate >60 (60-); Glucose, Blood 75 mg/dL (70-99); Magnesium, Blood 1.7 mg/dL (1.6-2.4); Potassium, Blood 3.9 mmol/L (3.5-5.5); Sodium, Blood 136 mmol/L (136-145)
[2017-10-03] MEDS ORDERED: POTCHL20ER PO (11:10)
[2017-10-03] MEDS ORDERED: ALBU90OI INH (11:11)
== END 2017-10-03 12:36 | disposition home or self-care (01) ==
LOC: ER 17:20 → MEDS 18:23
PROVIDERS: Hospitalist
DX: J96.21 Acute and chronic respiratory failure with hypoxia (principal); J11.1 Influenza due to unidentified influenza virus with other respiratory manifestations; J44.9 Chronic obstructive pulmonary disease, unspecified; E87.6 Hypokalemia; I10 Essential (primary) hypertension; F41.9 Anxiety disorder, unspecified; Z87.19 Personal history of other diseases of the digestive system; Z88.5 Allergy status to narcotic agent; Z91.012 Allergy to eggs; Z79.899 Other long term (current) drug therapy; Z90.49 Acquired absence of other specified parts of digestive tract; Z98.890 Other specified postprocedural states
CPT/HCPCS: 36415; 71045; 80048; 83735; 85025; 94640; 94760; 94761; 99285; G0378

== ENCOUNTER 2017-10-05 00:29 | Inpatient (IN) | payer OTHER ==
[~2017-10-05] VITALS: Ht 175.3 cm; Wt 78.9 kg
[~2017-10-05 00:29] MED LIST changes: +ALBU90OI INH; +IBUP600 PO; +Lomotil Tablet1 EACH PO; +POTCHL20ER PO; +Secura Protecti50 GM TOP; +TUMS300 MG PO
[2017-10-05 01:03] LABS: BASOPHILS ABSOLUTE AUTO 0.01 K/mm3 (0.00-0.23); BASOPHILS PERCENT AUTO 0 % (0-2); EOSINOPHILS ABSOLUTE AUTO 0.01 K/mm3 (0.00-0.68); EOSINOPHILS PERCENT AUTO 0 % (0-6); Hematocrit 39.2 % (37.0-53.0); Hemoglobin 13.4 g/dL (13.5-17.5); IMMATURE GRAN ABSOLUTE AUTO 0.05 K/mm3 (0.00-0.10); IMMATURE GRAN PERCENT AUTO 1 % (0-1); LYMPHOCYTES ABSOLUTE AUTO 0.51 K/mm3 (0.84-5.20); LYMPHOCYTES PERCENT AUTO 6 % (21-46); MONOCYTES ABSOLUTE AUTO 0.54 K/mm3 (0.16-1.47); MONOCYTES PERCENT AUTO 6 % (4-13); Mean Corpuscular HGB 31.7 pg (26.0-34.0); Mean Corpuscular HGB Conc 34.2 g/dL (31.5-36.5); Mean Corpuscular Volume 93 fL (80-100); NEUTROPHILS PERCENT AUTO 87 % (41-73); RDW Standard Deviation 50.8 fL (35.1-46.3); Red Blood Cell Count 4.23 M/mm3 (4.30-5.90); White Blood Cell Count 8.72 K/mm3 (4.00-11.30)
[2017-10-05 01:05] LABS: Mean Platelet Volume 12.3 fL (9.1-12.4); Platelet Count 100 K/mm3 (150-400)
[2017-10-05 01:06] LABS: PCO2 Arterial 31.2 mmHg (35-45); PO2 Arterial 57.5 mmHg (80-100)
[2017-10-05 01:23] LABS: Alanine Aminotransfer (ALT/SGP 47 U/L (12-78); Albumin, Blood 2.8 g/dL (3.4-5.0); Albumin/Globulin Ratio 0.7 (0.8-1.8); Alk Phos 81 U/L (50-136); Anion Gap 9 mmol/L (6-16); Aspartate Aminotrans (AST/SGOT 100 U/L (12-37); Bilirubin, Total 0.9 mg/dL (0.1-1.0); Blood Urea Nitrogen 10 mg/dL (8-24); CO2, Blood 24 mmol/L (21-32); Calcium, Blood 7.6 mg/dL (8.5-10.1); Chloride, Blood 101 mmol/L (98-108); Creatinine, Blood 0.77 mg/dL (0.60-1.20); Globulin, Blood 4.3 g/dL (2.2-4.0); Glomerular Filtration Rate >60 (60-); Glucose, Blood 114 mg/dL (70-99); Potassium, Blood 4.6 mmol/L (3.5-5.5); Sodium, Blood 134 mmol/L (136-145); Total Protein, Blood 7.1 g/dL (6.4-8.2)
[2017-10-05 06:44] LABS: BASOPHILS PERCENT AUTO 0 % (0-2); EOSINOPHILS PERCENT AUTO 0 % (0-6); Hemoglobin 12.5 g/dL (13.5-17.5); IMMATURE GRAN ABSOLUTE AUTO 0.04 K/mm3 (0.00-0.10); IMMATURE GRAN PERCENT AUTO 1 % (0-1); LYMPHOCYTES ABSOLUTE AUTO 0.43 K/mm3 (0.84-5.20); LYMPHOCYTES PERCENT AUTO 5 % (21-46); MONOCYTES ABSOLUTE AUTO 0.49 K/mm3 (0.16-1.47); MONOCYTES PERCENT AUTO 6 % (4-13); Mean Corpuscular HGB 31.9 pg (26.0-34.0); Mean Corpuscular HGB Conc 34.7 g/dL (31.5-36.5); Mean Corpuscular Volume 92 fL (80-100); NEUTROPHILS ABSOLUTE AUTO 7.53 K/mm3 (1.96-9.15); NEUTROPHILS PERCENT AUTO 89 % (41-73); Platelet Count 106 K/mm3 (150-400); RDW Standard Deviation 49.6 fL (35.1-46.3); Red Blood Cell Count 3.92 M/mm3 (4.30-5.90); White Blood Cell Count 8.49 K/mm3 (4.00-11.30)
[2017-10-05 06:59] LABS: Anion Gap 9 mmol/L (6-16); Blood Urea Nitrogen 10 mg/dL (8-24); CO2, Blood 25 mmol/L (21-32); Calcium, Blood 7.4 mg/dL (8.5-10.1); Chloride, Blood 101 mmol/L (98-108); Creatinine, Blood 0.84 mg/dL (0.60-1.20); Glomerular Filtration Rate >60 (60-); Glucose, Blood 102 mg/dL (70-99); Potassium, Blood 3.5 mmol/L (3.5-5.5); Sodium, Blood 135 mmol/L (136-145)
[2017-10-05 16:19] LABS: U Amphetamine Screen Not Detected; U Barbituate Screen Not Detected; U Benzodiazapine Screen DETECTED; U Buprenorphine Screen Not Detected; U Cannabinoids Screen Not Detected; U Cocaine Screen Not Detected; U Methadone Screen Not Detected; U Methamphetamine Screen Not Detected; U Opiates Screen Not Detected; U Oxycodone Screen Not Detected; U Phencyclidine Screen Not Detected; U Propoxyphene Screen Not Detected
[2017-10-06 05:25] LABS: Mean Platelet Volume 11.3 fL (9.1-12.4); Platelet Count 175 K/mm3 (150-400)
[2017-10-06 05:52] LABS: PO2 Arterial 63.1 mmHg (80-100); pH Blood Arterial 7.46 (7.35-7.45)
[2017-10-07 09:23] LABS: Anion Gap 11 mmol/L (6-16); Blood Urea Nitrogen 17 mg/dL (8-24); Bun/Creatinine Ratio 18.6 (12.0-20.0); CO2, Blood 24 mmol/L (21-32); Calcium, Blood 7.7 mg/dL (8.5-10.1); Chloride, Blood 100 mmol/L (98-108); Creatinine, Blood 0.91 mg/dL (0.60-1.20); Glomerular Filtration Rate >60 (60-); Glucose, Blood 77 mg/dL (70-99); Sodium, Blood 135 mmol/L (136-145)
[2017-10-09 11:36] LABS: BASOPHILS ABSOLUTE AUTO 0.01 K/mm3 (0.00-0.23); BASOPHILS PERCENT AUTO 0 % (0-2); EOSINOPHILS ABSOLUTE AUTO 0.01 K/mm3 (0.00-0.68); EOSINOPHILS PERCENT AUTO 0 % (0-6); Hematocrit 36.6 % (37.0-53.0); Hemoglobin 12.4 g/dL (13.5-17.5); IMMATURE GRAN ABSOLUTE AUTO 0.08 K/mm3 (0.00-0.10); IMMATURE GRAN PERCENT AUTO 1 % (0-1); LYMPHOCYTES ABSOLUTE AUTO 0.66 K/mm3 (0.84-5.20); LYMPHOCYTES PERCENT AUTO 9 % (21-46); MONOCYTES ABSOLUTE AUTO 0.78 K/mm3 (0.16-1.47); MONOCYTES PERCENT AUTO 11 % (4-13); Mean Corpuscular HGB 31.6 pg (26.0-34.0); Mean Corpuscular HGB Conc 33.9 g/dL (31.5-36.5); Mean Corpuscular Volume 93 fL (80-100); Mean Platelet Volume 11.3 fL (9.1-12.4); NEUTROPHILS ABSOLUTE AUTO 5.72 K/mm3 (1.96-9.15); NEUTROPHILS PERCENT AUTO 79 % (41-73); Platelet Count 248 K/mm3 (150-400); RDW Coefficient Variation 15.5 % (11.7-14.2); RDW Standard Deviation 53.1 fL (35.1-46.3); Red Blood Cell Count 3.92 M/mm3 (4.30-5.90); White Blood Cell Count 7.26 K/mm3 (4.00-11.30)
[2017-10-09 11:57] LABS: Anion Gap 13 mmol/L (6-16); Blood Urea Nitrogen 12 mg/dL (8-24); CO2, Blood 23 mmol/L (21-32); Calcium, Blood 7.5 mg/dL (8.5-10.1); Chloride, Blood 103 mmol/L (98-108); Creatinine, Blood 0.86 mg/dL (0.60-1.20); Glomerular Filtration Rate >60 (60-); Glucose, Blood 70 mg/dL (70-99); Potassium, Blood 3.1 mmol/L (3.5-5.5); Sodium, Blood 139 mmol/L (136-145)
[2017-10-13 04:52] LABS: Anion Gap 9 mmol/L (6-16); Blood Urea Nitrogen 25 mg/dL (8-24); Bun/Creatinine Ratio 28.5 (12.0-20.0); CO2, Blood 26 mmol/L (21-32); Calcium, Blood 7.7 mg/dL (8.5-10.1); Chloride, Blood 105 mmol/L (98-108); Creatinine, Blood 0.88 mg/dL (0.60-1.20); Glomerular Filtration Rate >60 (60-); Glucose, Blood 94 mg/dL (70-99); Magnesium, Blood 1.6 mg/dL (1.6-2.4); Phosphorus, Blood 2.3 mg/dL (2.5-4.9); Potassium, Blood 3.4 mmol/L (3.5-5.5); Sodium, Blood 140 mmol/L (136-145)
[2017-10-13] MEDS ORDERED: HYDPAM25 PO (13:00)
[2017-10-13] MEDS ORDERED: Augmentin 875-1 EACH PO (13:02)
[2017-10-13] MEDS ORDERED: DEEP SEA44 ML (13:02)
== END 2017-10-13 15:52 | DRG 871 ==
LOC: ER 00:29 → PCU 02:13 → ERHOLD 02:18 → PCU 07:29 → MEDS 10-07 21:10 → ENPENDDIS 10-13 10:30 → MEDS 10-13 15:52
PROVIDERS: Emergency Medicine; Family Medicine; Hospitalist; Internal Medicine
DX: A41.9 Sepsis, unspecified organism (principal); J96.21 Acute and chronic respiratory failure with hypoxia; B37.89 Other sites of candidiasis; B44.89 Other forms of aspergillosis; J44.0 Chronic obstructive pulmonary disease with (acute) lower respiratory infection; J18.9 Pneumonia, unspecified organism; J44.1 Chronic obstructive pulmonary disease with (acute) exacerbation; Z87.891 Personal history of nicotine dependence; E87.6 Hypokalemia
CPT/HCPCS: 36415; 36600; 71045; 71046; 71260; 80048; 80053; 82803; 83605; 83735; 83880; 84100; 84132; 84145; 84484; 85025; 85049; 85379; 87070; 87106; 87205; 87493; 93005; 93010; 94640; 94667; 94760; 94762; 96365; 96375; 97110; 97116; 97162; 97530; 99285; C9113; G8978; G8979; J0360; J1630; J1650; J1940; J2060; J2543; J3370; J7030; J7050; Q0177; Q9967

== ENCOUNTER 2017-10-31 09:29 | Inpatient (IN) | payer OTHER ==
[~2017-10-31] VITALS: Ht 172.7 cm; Wt 78.6 kg
[~2017-10-31 09:29] MED LIST changes: +Augmentin 875-1 EACH PO; +DEEP SEA44 ML; +HYDPAM25 PO
[2017-10-31] MEDS ORDERED: Acidophilus La100 GM PO (09:51)
[2017-10-31] MEDS ORDERED: Hair, Skin & N1 EACH PO (09:52)
[2017-10-31] MEDS ORDERED: ALBU2.5V5 NEB (09:54)
[2017-10-31] MEDS ORDERED: Ipratr-Albuterol3 ML INH (09:54)
[2017-10-31 10:36] LABS: BASOPHILS ABSOLUTE AUTO 0.03 K/mm3 (0.00-0.23); BASOPHILS PERCENT AUTO 0 % (0-2); EOSINOPHILS ABSOLUTE AUTO 0.08 K/mm3 (0.00-0.68); EOSINOPHILS PERCENT AUTO 1 % (0-6); Hematocrit 31.2 % (37.0-53.0); Hemoglobin 10.4 g/dL (13.5-17.5); IMMATURE GRAN ABSOLUTE AUTO 0.05 K/mm3 (0.00-0.10); IMMATURE GRAN PERCENT AUTO 1 % (0-1); LYMPHOCYTES ABSOLUTE AUTO 1.19 K/mm3 (0.84-5.20); LYMPHOCYTES PERCENT AUTO 16 % (21-46); MONOCYTES ABSOLUTE AUTO 0.82 K/mm3 (0.16-1.47); MONOCYTES PERCENT AUTO 11 % (4-13); Mean Corpuscular HGB 31.5 pg (26.0-34.0); Mean Corpuscular HGB Conc 33.3 g/dL (31.5-36.5); Mean Corpuscular Volume 95 fL (80-100); Mean Platelet Volume 10.2 fL (9.1-12.4); NEUTROPHILS PERCENT AUTO 72 % (41-73); Platelet Count 303 K/mm3 (150-400); RDW Coefficient Variation 15.1 % (11.7-14.2); RDW Standard Deviation 52.3 fL (35.1-46.3); White Blood Cell Count 7.67 K/mm3 (4.00-11.30)
[2017-10-31 10:37] LABS: Source, Urine Voided
[2017-10-31 10:42] LABS: Bilirubin, Urine Neg (Neg); Blood, Urine 5+ (Neg); Glucose Qualitative, Urine Neg (Neg); Ketones, Urine Neg (Neg); Leukocyte Esterase, Urine 1+ (Neg); Nitrite, Urine Neg (Neg); Protein, Urine 1+ (Neg); Urobilinogen, Urine NORM (Normal); pH, Urine 6.5 (5.0-8.0)
[2017-10-31 10:49] LABS: Appearance, Urine Hazy (Clear); Color, Urine Yellow (P-Yellow)
[2017-10-31 10:52] LABS: Bacteria Few /hpf; Squamous Epithelial Cells Few /hpf (Few)
[2017-10-31 10:53] LABS: Mucus Mod (0-Heavy)
[2017-10-31 10:56] LABS: Alanine Aminotransfer (ALT/SGP 21 U/L (12-78); Albumin/Globulin Ratio 0.4 (0.8-1.8); Alk Phos 80 U/L (50-136); Anion Gap 6 mmol/L (6-16); Aspartate Aminotrans (AST/SGOT 19 U/L (12-37); Bilirubin, Total 0.4 mg/dL (0.1-1.0); Blood Urea Nitrogen 17 mg/dL (8-24); Bun/Creatinine Ratio 19.3 (12.0-20.0); CO2, Blood 25 mmol/L (21-32); Calcium, Blood 8.1 mg/dL (8.5-10.1); Chloride, Blood 104 mmol/L (98-108); Creatinine, Blood 0.88 mg/dL (0.60-1.20); Globulin, Blood 5.5 g/dL (2.2-4.0); Glomerular Filtration Rate >60 (60-); Glucose, Blood 99 mg/dL (70-99); Sodium, Blood 135 mmol/L (136-145); Total Protein, Blood 7.5 g/dL (6.4-8.2)
[2017-11-01 04:57] LABS: Hematocrit 27.7 % (37.0-53.0); Hemoglobin 9.1 g/dL (13.5-17.5); Mean Corpuscular HGB 31.5 pg (26.0-34.0); Mean Corpuscular HGB Conc 32.9 g/dL (31.5-36.5); Mean Corpuscular Volume 96 fL (80-100); Mean Platelet Volume 10.5 fL (9.1-12.4); Platelet Count 289 K/mm3 (150-400); RDW Coefficient Variation 15.2 % (11.7-14.2); RDW Standard Deviation 53.3 fL (35.1-46.3); Red Blood Cell Count 2.89 M/mm3 (4.30-5.90); White Blood Cell Count 6.58 K/mm3 (4.00-11.30)
[2017-11-01 05:21] LABS: Anion Gap 7 mmol/L (6-16); Blood Urea Nitrogen 14 mg/dL (8-24); Bun/Creatinine Ratio 17.5 (12.0-20.0); CO2, Blood 25 mmol/L (21-32); Calcium, Blood 7.6 mg/dL (8.5-10.1); Chloride, Blood 106 mmol/L (98-108); Glomerular Filtration Rate >60 (60-); Glucose, Blood 75 mg/dL (70-99); Potassium, Blood 3.6 mmol/L (3.5-5.5); Sodium, Blood 138 mmol/L (136-145)
[2017-11-04 09:40] LABS: Hematocrit 28.4 % (37.0-53.0); Hemoglobin 9.6 g/dL (13.5-17.5); Mean Corpuscular HGB 31.3 pg (26.0-34.0); Mean Corpuscular HGB Conc 33.8 g/dL (31.5-36.5); Mean Platelet Volume 9.8 fL (9.1-12.4); Platelet Count 313 K/mm3 (150-400); RDW Coefficient Variation 14.6 % (11.7-14.2); RDW Standard Deviation 49.5 fL (35.1-46.3); Red Blood Cell Count 3.07 M/mm3 (4.30-5.90); White Blood Cell Count 9.64 K/mm3 (4.00-11.30)
[2017-11-04 09:41] LABS: Mean Corpuscular Volume 93 fL (80-100)
[2017-11-04 09:59] LABS: Anion Gap 7 mmol/L (6-16); Blood Urea Nitrogen 20 mg/dL (8-24); Bun/Creatinine Ratio 29.5 (12.0-20.0); CO2, Blood 30 mmol/L (21-32); Calcium, Blood 7.4 mg/dL (8.5-10.1); Chloride, Blood 94 mmol/L (98-108); Creatinine, Blood 0.68 mg/dL (0.60-1.20); Glomerular Filtration Rate >60 (60-); Glucose, Blood 121 mg/dL (70-99); Potassium, Blood 3.1 mmol/L (3.5-5.5); Sodium, Blood 131 mmol/L (136-145)
[2017-11-06 05:11] LABS: Anion Gap 7 mmol/L (6-16); Blood Urea Nitrogen 13 mg/dL (8-24); Bun/Creatinine Ratio 21.7 (12.0-20.0); CO2, Blood 32 mmol/L (21-32); Calcium, Blood 7.5 mg/dL (8.5-10.1); Chloride, Blood 92 mmol/L (98-108); Glomerular Filtration Rate >60 (60-); Glucose, Blood 109 mg/dL (70-99); Magnesium, Blood 1.9 mg/dL (1.6-2.4); Phosphorus, Blood 2.5 mg/dL (2.5-4.9); Potassium, Blood 3.1 mmol/L (3.5-5.5); Sodium, Blood 131 mmol/L (136-145); Triglycerides 110 mg/dL (30-160)
[2017-11-06 09:40] LABS: BASOPHILS ABSOLUTE AUTO 0.01 K/mm3 (0.00-0.23); BASOPHILS PERCENT AUTO 0 % (0-2); EOSINOPHILS ABSOLUTE AUTO 0.08 K/mm3 (0.00-0.68); EOSINOPHILS PERCENT AUTO 1 % (0-6); IMMATURE GRAN ABSOLUTE AUTO 0.01 K/mm3 (0.00-0.10); IMMATURE GRAN PERCENT AUTO 0 % (0-1); LYMPHOCYTES ABSOLUTE AUTO 1.09 K/mm3 (0.84-5.20); LYMPHOCYTES PERCENT AUTO 18 % (21-46); MONOCYTES ABSOLUTE AUTO 0.86 K/mm3 (0.16-1.47); MONOCYTES PERCENT AUTO 14 % (4-13); Mean Corpuscular HGB 31.7 pg (26.0-34.0); Mean Corpuscular HGB Conc 34.5 g/dL (31.5-36.5); Mean Corpuscular Volume 92 fL (80-100); Mean Platelet Volume 10.6 fL (9.1-12.4); NEUTROPHILS ABSOLUTE AUTO 4.05 K/mm3 (1.96-9.15); NEUTROPHILS PERCENT AUTO 66 % (41-73); Platelet Count 371 K/mm3 (150-400); RDW Coefficient Variation 14.4 % (11.7-14.2); RDW Standard Deviation 48.5 fL (35.1-46.3); Red Blood Cell Count 3.15 M/mm3 (4.30-5.90)
[2017-11-07 06:30] LABS: BASOPHILS ABSOLUTE AUTO 0.02 K/mm3 (0.00-0.23); BASOPHILS PERCENT AUTO 0 % (0-2); EOSINOPHILS ABSOLUTE AUTO 0.07 K/mm3 (0.00-0.68); EOSINOPHILS PERCENT AUTO 1 % (0-6); Hematocrit 27.5 % (37.0-53.0); Hemoglobin 9.2 g/dL (13.5-17.5); IMMATURE GRAN ABSOLUTE AUTO 0.02 K/mm3 (0.00-0.10); IMMATURE GRAN PERCENT AUTO 0 % (0-1); LYMPHOCYTES ABSOLUTE AUTO 1.05 K/mm3 (0.84-5.20); LYMPHOCYTES PERCENT AUTO 19 % (21-46); MONOCYTES ABSOLUTE AUTO 0.79 K/mm3 (0.16-1.47); MONOCYTES PERCENT AUTO 14 % (4-13); Mean Corpuscular HGB 31.1 pg (26.0-34.0); Mean Corpuscular HGB Conc 33.5 g/dL (31.5-36.5); Mean Corpuscular Volume 93 fL (80-100); Mean Platelet Volume 9.8 fL (9.1-12.4); NEUTROPHILS ABSOLUTE AUTO 3.52 K/mm3 (1.96-9.15); NEUTROPHILS PERCENT AUTO 64 % (41-73); Platelet Count 333 K/mm3 (150-400); RDW Coefficient Variation 14.6 % (11.7-14.2); RDW Standard Deviation 49.9 fL (35.1-46.3); Red Blood Cell Count 2.96 M/mm3 (4.30-5.90); White Blood Cell Count 5.47 K/mm3 (4.00-11.30)
[2017-11-07 06:46] LABS: Anion Gap 5 mmol/L (6-16); Blood Urea Nitrogen 12 mg/dL (8-24); Bun/Creatinine Ratio 19.8 (12.0-20.0); CO2, Blood 33 mmol/L (21-32); Calcium, Blood 7.3 mg/dL (8.5-10.1); Chloride, Blood 93 mmol/L (98-108); Creatinine, Blood 0.61 mg/dL (0.60-1.20); Glomerular Filtration Rate >60 (60-); Glucose, Blood 108 mg/dL (70-99); Phosphorus, Blood 2.3 mg/dL (2.5-4.9); Sodium, Blood 131 mmol/L (136-145)
[2017-11-08 06:26] LABS: BASOPHILS ABSOLUTE AUTO 0.01 K/mm3 (0.00-0.23); BASOPHILS PERCENT AUTO 0 % (0-2); EOSINOPHILS PERCENT AUTO 2 % (0-6); Hematocrit 28.4 % (37.0-53.0); Hemoglobin 9.6 g/dL (13.5-17.5); IMMATURE GRAN ABSOLUTE AUTO 0.01 K/mm3 (0.00-0.10); IMMATURE GRAN PERCENT AUTO 0 % (0-1); LYMPHOCYTES ABSOLUTE AUTO 1.52 K/mm3 (0.84-5.20); LYMPHOCYTES PERCENT AUTO 26 % (21-46); MONOCYTES ABSOLUTE AUTO 0.95 K/mm3 (0.16-1.47); MONOCYTES PERCENT AUTO 16 % (4-13); Mean Corpuscular HGB 31.2 pg (26.0-34.0); Mean Corpuscular HGB Conc 33.8 g/dL (31.5-36.5); Mean Corpuscular Volume 92 fL (80-100); Mean Platelet Volume 9.8 fL (9.1-12.4); NEUTROPHILS PERCENT AUTO 56 % (41-73); Platelet Count 344 K/mm3 (150-400); RDW Coefficient Variation 14.8 % (11.7-14.2); RDW Standard Deviation 50.1 fL (35.1-46.3); Red Blood Cell Count 3.08 M/mm3 (4.30-5.90); White Blood Cell Count 5.89 K/mm3 (4.00-11.30)
[2017-11-08 06:40] LABS: Anion Gap 5 mmol/L (6-16); Blood Urea Nitrogen 14 mg/dL (8-24); Bun/Creatinine Ratio 27.6 (12.0-20.0); CO2, Blood 33 mmol/L (21-32); Calcium, Blood 7.3 mg/dL (8.5-10.1); Chloride, Blood 94 mmol/L (98-108); Creatinine, Blood 0.51 mg/dL (0.60-1.20); Glomerular Filtration Rate >60 (60-); Glucose, Blood 99 mg/dL (70-99); Phosphorus, Blood 2.8 mg/dL (2.5-4.9); Potassium, Blood 3.4 mmol/L (3.5-5.5); Sodium, Blood 132 mmol/L (136-145)
[2017-11-09 06:44] LABS: BASOPHILS PERCENT AUTO 0 % (0-2); EOSINOPHILS ABSOLUTE AUTO 0.01 K/mm3 (0.00-0.68); EOSINOPHILS PERCENT AUTO 0 % (0-6); Hematocrit 22.6 % (37.0-53.0); Hemoglobin 7.6 g/dL (13.5-17.5); IMMATURE GRAN ABSOLUTE AUTO 0.03 K/mm3 (0.00-0.10); IMMATURE GRAN PERCENT AUTO 0 % (0-1); LYMPHOCYTES ABSOLUTE AUTO 1.21 K/mm3 (0.84-5.20); LYMPHOCYTES PERCENT AUTO 14 % (21-46); MONOCYTES ABSOLUTE AUTO 0.78 K/mm3 (0.16-1.47); MONOCYTES PERCENT AUTO 9 % (4-13); Mean Corpuscular HGB 31.9 pg (26.0-34.0); Mean Corpuscular HGB Conc 33.6 g/dL (31.5-36.5); Mean Platelet Volume 10.4 fL (9.1-12.4); NEUTROPHILS ABSOLUTE AUTO 6.55 K/mm3 (1.96-9.15); NEUTROPHILS PERCENT AUTO 76 % (41-73); Platelet Count 304 K/mm3 (150-400); RDW Coefficient Variation 15.3 % (11.7-14.2); Red Blood Cell Count 2.38 M/mm3 (4.30-5.90); White Blood Cell Count 8.58 K/mm3 (4.00-11.30)
[2017-11-09 06:47] LABS: Mean Corpuscular Volume 95 fL (80-100)
[2017-11-09 06:58] LABS: Anion Gap 3 mmol/L (6-16); Blood Urea Nitrogen 16 mg/dL (8-24); Bun/Creatinine Ratio 26.6 (12.0-20.0); CO2, Blood 32 mmol/L (21-32); Chloride, Blood 98 mmol/L (98-108); Glomerular Filtration Rate >60 (60-); Glucose, Blood 111 mg/dL (70-99); Potassium, Blood 3.2 mmol/L (3.5-5.5); Sodium, Blood 133 mmol/L (136-145)
[2017-11-10 05:29] LABS: BASOPHILS ABSOLUTE AUTO 0.02 K/mm3 (0.00-0.23); BASOPHILS PERCENT AUTO 0 % (0-2); EOSINOPHILS ABSOLUTE AUTO 0.18 K/mm3 (0.00-0.68); EOSINOPHILS PERCENT AUTO 2 % (0-6); Hematocrit 25.3 % (37.0-53.0); Hemoglobin 8.4 g/dL (13.5-17.5); IMMATURE GRAN ABSOLUTE AUTO 0.05 K/mm3 (0.00-0.10); IMMATURE GRAN PERCENT AUTO 1 % (0-1); LYMPHOCYTES ABSOLUTE AUTO 1.37 K/mm3 (0.84-5.20); LYMPHOCYTES PERCENT AUTO 18 % (21-46); MONOCYTES PERCENT AUTO 12 % (4-13); Mean Corpuscular HGB 30.8 pg (26.0-34.0); Mean Corpuscular HGB Conc 33.2 g/dL (31.5-36.5); Mean Corpuscular Volume 93 fL (80-100); Mean Platelet Volume 10.2 fL (9.1-12.4); NEUTROPHILS ABSOLUTE AUTO 5.26 K/mm3 (1.96-9.15); NEUTROPHILS PERCENT AUTO 68 % (41-73); Platelet Count 293 K/mm3 (150-400); RDW Coefficient Variation 17.1 % (11.7-14.2); RDW Standard Deviation 57.6 fL (35.1-46.3); Red Blood Cell Count 2.73 M/mm3 (4.30-5.90); White Blood Cell Count 7.78 K/mm3 (4.00-11.30)
[2017-11-10 05:53] LABS: Anion Gap 6 mmol/L (6-16); Blood Urea Nitrogen 14 mg/dL (8-24); Bun/Creatinine Ratio 21.5 (12.0-20.0); CO2, Blood 30 mmol/L (21-32); Calcium, Blood 7.2 mg/dL (8.5-10.1); Chloride, Blood 100 mmol/L (98-108); Creatinine, Blood 0.65 mg/dL (0.60-1.20); Glomerular Filtration Rate >60 (60-); Glucose, Blood 95 mg/dL (70-99); Potassium, Blood 3.1 mmol/L (3.5-5.5); Sodium, Blood 136 mmol/L (136-145)
[2017-11-11 05:46] LABS: BASOPHILS ABSOLUTE AUTO 0.02 K/mm3 (0.00-0.23); BASOPHILS PERCENT AUTO 0 % (0-2); EOSINOPHILS ABSOLUTE AUTO 0.25 K/mm3 (0.00-0.68); EOSINOPHILS PERCENT AUTO 4 % (0-6); Hematocrit 27.4 % (37.0-53.0); Hemoglobin 9.2 g/dL (13.5-17.5); IMMATURE GRAN ABSOLUTE AUTO 0.06 K/mm3 (0.00-0.10); IMMATURE GRAN PERCENT AUTO 1 % (0-1); LYMPHOCYTES ABSOLUTE AUTO 1.76 K/mm3 (0.84-5.20); LYMPHOCYTES PERCENT AUTO 26 % (21-46); MONOCYTES ABSOLUTE AUTO 0.77 K/mm3 (0.16-1.47); MONOCYTES PERCENT AUTO 11 % (4-13); Mean Corpuscular HGB Conc 33.6 g/dL (31.5-36.5); Mean Corpuscular Volume 92 fL (80-100); Mean Platelet Volume 9.9 fL (9.1-12.4); NEUTROPHILS ABSOLUTE AUTO 3.98 K/mm3 (1.96-9.15); NEUTROPHILS PERCENT AUTO 58 % (41-73); Platelet Count 310 K/mm3 (150-400); RDW Coefficient Variation 16.4 % (11.7-14.2); RDW Standard Deviation 55.2 fL (35.1-46.3); Red Blood Cell Count 2.97 M/mm3 (4.30-5.90); White Blood Cell Count 6.84 K/mm3 (4.00-11.30)
[2017-11-11 06:07] LABS: Anion Gap 5 mmol/L (6-16); Blood Urea Nitrogen 7 mg/dL (8-24); Bun/Creatinine Ratio 10.1 (12.0-20.0); CO2, Blood 32 mmol/L (21-32); Calcium, Blood 7.2 mg/dL (8.5-10.1); Chloride, Blood 100 mmol/L (98-108); Creatinine, Blood 0.69 mg/dL (0.60-1.20); Glomerular Filtration Rate >60 (60-); Glucose, Blood 80 mg/dL (70-99); Sodium, Blood 137 mmol/L (136-145)
[2017-11-12 06:17] LABS: Albumin, Blood 1.7 g/dL (3.4-5.0); Anion Gap 6 mmol/L (6-16); Blood Urea Nitrogen 7 mg/dL (8-24); Bun/Creatinine Ratio 10.2 (12.0-20.0); CO2, Blood 29 mmol/L (21-32); Calcium, Blood 7.6 mg/dL (8.5-10.1); Chloride, Blood 99 mmol/L (98-108); Creatinine, Blood 0.69 mg/dL (0.60-1.20); Glomerular Filtration Rate >60 (60-); Glucose, Blood 94 mg/dL (70-99); Magnesium, Blood 1.7 mg/dL (1.6-2.4); Phosphorus, Blood 2.4 mg/dL (2.5-4.9); Potassium, Blood 3.3 mmol/L (3.5-5.5); Sodium, Blood 134 mmol/L (136-145)
[2017-11-13 05:12] LABS: Albumin, Blood 1.9 g/dL (3.4-5.0); Anion Gap 9 mmol/L (6-16); Blood Urea Nitrogen 6 mg/dL (8-24); Bun/Creatinine Ratio 7.6 (12.0-20.0); CO2, Blood 29 mmol/L (21-32); Chloride, Blood 98 mmol/L (98-108); Creatinine, Blood 0.79 mg/dL (0.60-1.20); Glomerular Filtration Rate >60 (60-); Glucose, Blood 79 mg/dL (70-99); Phosphorus, Blood 3.5 mg/dL (2.5-4.9); Potassium, Blood 3.5 mmol/L (3.5-5.5); Sodium, Blood 136 mmol/L (136-145)
[2017-11-13] MEDS ORDERED: GABA600 PO (15:12)
[2017-11-13] MEDS ORDERED: Augmentin 875-1 EACH PO (15:13)
[2017-11-13] MEDS ORDERED: HYDR1TAB94 PO (15:13)
== END 2017-11-13 16:25 | DRG 330 ==
LOC: ER 09:29 → SURS 09:30 → ICUE 11-08 16:20 → SURS 11-08 21:45 → MEDS 11-11 15:52 → SURS 11-12 00:58
PROVIDERS: Emergency Medicine; Internal Medicine; Surgery
PROC: 02HV33Z Insertion of Infusion Device into Superior Vena Cava, Percutaneous Approach (ICD-10-PCS; 2017-11-06)
PROC: 0DTN0ZZ Resection of Sigmoid Colon, Open Approach (ICD-10-PCS; principal; 2017-11-08 10:55)
PROC: 0D1N074 Bypass Sigmoid Colon to Cutaneous with Autologous Tissue Substitute, Open Approach (ICD-10-PCS; 2017-11-08 10:55)
PROC: 30233N1 Transfusion of Nonautologous Red Blood Cells into Peripheral Vein, Percutaneous Approach (ICD-10-PCS; 2017-11-09)
DX: K57.20 Diverticulitis of large intestine with perforation and abscess without bleeding (principal); E44.0 Moderate protein-calorie malnutrition; E87.1 Hypo-osmolality and hyponatremia; D62 Acute posthemorrhagic anemia; Z87.891 Personal history of nicotine dependence; J44.9 Chronic obstructive pulmonary disease, unspecified; R53.81 Other malaise; K59.00 Constipation, unspecified; E87.6 Hypokalemia; Z99.81 Dependence on supplemental oxygen; R00.0 Tachycardia, unspecified; E83.39 Other disorders of phosphorus metabolism; D63.8 Anemia in other chronic diseases classified elsewhere; I73.9 Peripheral vascular disease, unspecified
CPT/HCPCS: 36415; 74018; 74177; 80048; 80053; 80069; 81001; 82947; 83605; 83690; 83735; 84100; 84478; 84484; 85025; 85027; 86850; 86900; 86901; 86923; 87086; 88307; 94640; 94664; 94667; 94760; 94762; 96365; 96375; 97110; 97116; 97162; 97164; 97530; 98960; 99285; 99407; G8978; G8979; J0295; J0610; J1100; J1200; J1650; J1885; J2250; J2370; J2405; J2765; J3010; J3411; J3475; J3480; J7030; J7060; J7120; J7131; P9016; Q9967

== ENCOUNTER 2017-11-23 00:43 | Day surgery (SDC) | payer OTHER ==
[~2017-11-23 00:43] MED LIST changes: +ALBU2.5V5 NEB; +Acidophilus La100 GM PO; +GABA600 PO; +HYDR1TAB94 PO; +Hair, Skin & N1 EACH PO; +Ipratr-Albuterol3 ML INH
== END 2017-11-23 14:16 | disposition home or self-care (01) ==
LOC: ATC 00:43
DX: K57.20 Diverticulitis of large intestine with perforation and abscess without bleeding (principal); Z87.891 Personal history of nicotine dependence; J44.9 Chronic obstructive pulmonary disease, unspecified
CPT/HCPCS: 36569; C1751

== ENCOUNTER 2018-01-31 09:43 | Emergency (ER) | payer OTHER ==
[~2018-01-31] VITALS: Ht 177.8 cm; Wt 72.6 kg
[2018-01-31 10:52] LABS: BASOPHILS ABSOLUTE AUTO 0.03 K/mm3 (0.00-0.23); BASOPHILS PERCENT AUTO 0 % (0-2); EOSINOPHILS PERCENT AUTO 0 % (0-6); Hemoglobin 16.5 g/dL (13.5-17.5); IMMATURE GRAN PERCENT AUTO 1 % (0-1); LYMPHOCYTES ABSOLUTE AUTO 1.24 K/mm3 (0.84-5.20); LYMPHOCYTES PERCENT AUTO 7 % (21-46); MONOCYTES ABSOLUTE AUTO 1.37 K/mm3 (0.16-1.47); MONOCYTES PERCENT AUTO 8 % (4-13); Mean Corpuscular HGB 31.9 pg (26.0-34.0); Mean Corpuscular Volume 97 fL (80-100); Mean Platelet Volume 10.8 fL (9.1-12.4); NEUTROPHILS ABSOLUTE AUTO 14.16 K/mm3 (1.96-9.15); NEUTROPHILS PERCENT AUTO 84 % (41-73); Platelet Count 379 K/mm3 (150-400); RDW Coefficient Variation 13.7 % (11.7-14.2); RDW Standard Deviation 49.4 fL (35.1-46.3); Red Blood Cell Count 5.17 M/mm3 (4.30-5.90)
[2018-01-31 11:01] LABS: International Normalized Ratio 1.06; Prothrombin Time Results 10.9 Sec (9.7-11.5)
[2018-01-31 11:05] LABS: Source, Urine Catheter
[2018-01-31 11:09] LABS: Bilirubin, Urine Neg (Neg); Blood, Urine 5+ (Neg); Glucose Qualitative, Urine Neg (Neg); Ketones, Urine 3+ (Neg); Leukocyte Esterase, Urine Neg (Neg); Nitrite, Urine Neg (Neg); Protein, Urine 2+ (Neg); Specific Gravity, Urine 1.015 (1.003-1.022); Urobilinogen, Urine NORM (Normal)
[2018-01-31 11:21] LABS: Appearance, Urine Clear (Clear); Color, Urine Yellow (P-Yellow)
[2018-01-31 11:24] LABS: PCO2 Venous 48 mmHg (38-42); PO2 Venous 49 mmHg (38-42); pH Blood Venous 7.35 (7.34-7.37)
[2018-01-31 11:25] LABS: Bacteria Mod /hpf; Mucus Light (0-Heavy); Squamous Epithelial Cells Rare /hpf (Few)
[2018-01-31 11:25] LABS: Base Excess Venous 0.5 mmol/L; Bicarbonate Venous 23.9 mmol/L (24.0-30.0)
[2018-01-31 11:47] LABS: Alanine Aminotransfer (ALT/SGP 13 U/L (12-78); Albumin, Blood 2.8 g/dL (3.4-5.0); Albumin/Globulin Ratio 0.6 (0.8-1.8); Alk Phos 74 U/L (50-136); Anion Gap 11 mmol/L (6-16); Aspartate Aminotrans (AST/SGOT 56 U/L (12-37); Bilirubin, Total 0.4 mg/dL (0.1-1.0); Blood Urea Nitrogen 68 mg/dL (8-24); Bun/Creatinine Ratio 69.7 (12.0-20.0); CO2, Blood 26 mmol/L (21-32); CPK Creatine Kinase 744 U/L (39-308); Calcium, Blood 8.1 mg/dL (8.5-10.1); Chloride, Blood 110 mmol/L (98-108); Creatinine, Blood 0.98 mg/dL (0.60-1.20); Ethanol (Alcohol), Blood, Med <3 mg/dL; Globulin, Blood 4.6 g/dL (2.2-4.0); Glomerular Filtration Rate >60 (60-); Glucose, Blood 92 mg/dL (70-99); Potassium, Blood 3.3 mmol/L (3.5-5.5); Sodium, Blood 147 mmol/L (136-145); Total Protein, Blood 7.4 g/dL (6.4-8.2); Troponin I 0.076 ng/mL (0.000-0.040)
[2018-01-31 12:04] LABS: Creatine Kinase MB 3.6 ng/mL (0.0-3.6); Creatine Kinase MB Index 0.5 (0.0-4.0)
[2018-01-31] MEDS ORDERED: POTCHL20ER PO (15:46)
[2018-01-31] MEDS ORDERED: LISI20 PO (15:47)
[2018-01-31] MEDS ORDERED: ONDA4ODT MM (15:47)
== END 2018-01-31 15:15 | disposition short-term general hospital (02) ==
LOC: ER 09:43
PROVIDERS: Emergency Medicine
DX: A41.9 Sepsis, unspecified organism (principal); I62.01 Nontraumatic acute subdural hemorrhage; E86.0 Dehydration; N39.0 Urinary tract infection, site not specified; M62.82 Rhabdomyolysis; J44.9 Chronic obstructive pulmonary disease, unspecified; Z91.012 Allergy to eggs; Z88.8 Allergy status to other drugs, medicaments and biological substances; Z79.899 Other long term (current) drug therapy; Z87.891 Personal history of nicotine dependence
CPT/HCPCS: 36415; 51702; 70450; 71045; 74176; 80053; 81001; 82550; 82553; 82803; 82947; 83605; 84484; 85025; 85610; 87086; 93005; 93010; 94640; 96361; 96365; 96366; 96367; 99285-25; G0480; J2543; J3370; J7030

== ENCOUNTER → 2019-04-17 | Outpatient (CLI) | payer OTHER ==
[~2019-04-17] MED LIST changes: +PREDNISONE; +Prednisone20 MG PO
[2019-04-18 06:05] LABS: Stool Occult Bld Immuno 1 Positive (NEGATIVE)
== END | disposition home or self-care (01) ==
LOC: LAB SHORT 16:10 → LAB 16:10
PROVIDERS: Nurse Practitioner Family
DX: Z12.11 Encounter for screening for malignant neoplasm of colon (principal)
CPT/HCPCS: G0328

== ENCOUNTER 2019-05-09 15:16 | Emergency (ER) | payer OTHER ==
[~2019-05-09] VITALS: Ht 172.7 cm; Wt 90.7 kg
[~2019-05-09 15:16] MED LIST changes: -PREDNISONE; -Prednisone20 MG PO
[2019-05-09 15:42] LABS: BASOPHILS ABSOLUTE AUTO 0.02 K/mm3 (0.00-0.23); BASOPHILS PERCENT AUTO 0 % (0-2); EOSINOPHILS ABSOLUTE AUTO 0.05 K/mm3 (0.00-0.68); EOSINOPHILS PERCENT AUTO 0 % (0-6); Hematocrit 46.2 % (37.0-53.0); Hemoglobin 15.3 g/dL (13.5-17.5); IMMATURE GRAN ABSOLUTE AUTO 0.03 K/mm3 (0.00-0.10); IMMATURE GRAN PERCENT AUTO 0 % (0-1); LYMPHOCYTES ABSOLUTE AUTO 1.49 K/mm3 (0.84-5.20); LYMPHOCYTES PERCENT AUTO 12 % (21-46); MONOCYTES ABSOLUTE AUTO 0.89 K/mm3 (0.16-1.47); MONOCYTES PERCENT AUTO 7 % (4-13); Mean Corpuscular HGB 32.5 pg (26.0-34.0); Mean Corpuscular HGB Conc 33.1 g/dL (31.5-36.5); Mean Corpuscular Volume 98 fL (80-100); Mean Platelet Volume 10.3 fL (9.1-12.4); NEUTROPHILS ABSOLUTE AUTO 10.46 K/mm3 (1.96-9.15); NEUTROPHILS PERCENT AUTO 81 % (41-73); Platelet Count 271 K/mm3 (150-400); RDW Coefficient Variation 12.5 % (11.7-14.2); RDW Standard Deviation 45.1 fL (35.1-46.3); Red Blood Cell Count 4.71 M/mm3 (4.30-5.90); White Blood Cell Count 12.94 K/mm3 (4.00-11.30)
[2019-05-09 16:05] LABS: Alanine Aminotransfer (ALT/SGP 27 U/L (12-78); Albumin, Blood 3.5 g/dL (3.4-5.0); Albumin/Globulin Ratio 0.8 (0.8-1.8); Alk Phos 95 U/L (50-136); Anion Gap 4 mmol/L (6-16); Aspartate Aminotrans (AST/SGOT 24 U/L (12-37); Bilirubin, Total 0.5 mg/dL (0.1-1.0); Blood Urea Nitrogen 28 mg/dL (8-24); Bun/Creatinine Ratio 26.4 (12.0-20.0); CO2, Blood 34 mmol/L (21-32); Calcium, Blood 8.8 mg/dL (8.5-10.1); Chloride, Blood 102 mmol/L (98-108); Creatinine, Blood 1.06 mg/dL (0.60-1.20); Globulin, Blood 4.3 g/dL (2.2-4.0); Glomerular Filtration Rate >60 (60-); Glucose, Blood 102 mg/dL (70-99); Potassium, Blood 3.7 mmol/L (3.5-5.5); Sodium, Blood 140 mmol/L (136-145); Total Protein, Blood 7.8 g/dL (6.4-8.2); Troponin I <0.015 ng/mL (0.000-0.040)
[2019-05-09] MEDS ORDERED: ONDA4ODT MM (17:21)
[2019-05-09] MEDS ORDERED: Prednisone20 MG PO (17:21)
== END 2019-05-09 17:58 | disposition home or self-care (01) ==
LOC: ER 15:16
PROVIDERS: Emergency Medicine
DX: K50.90 Crohn's disease, unspecified, without complications (principal); K29.70 Gastritis, unspecified, without bleeding; K20.9 Esophagitis, unspecified; J44.1 Chronic obstructive pulmonary disease with (acute) exacerbation; Z91.012 Allergy to eggs; Z88.8 Allergy status to other drugs, medicaments and biological substances; Z79.899 Other long term (current) drug therapy; Z87.891 Personal history of nicotine dependence
CPT/HCPCS: 36415; 71046; 74176; 80053; 83690; 83880; 84484; 85025; 93005; 93010; 94640; 94644; 96361; 96374; 96375; 99285-25; J2930; J3010; J7030

== ENCOUNTER 2019-05-11 10:48 | Inpatient (IN) | payer OTHER ==
[~2019-05-11] VITALS: Ht 172.7 cm; Wt 100.1 kg
[~2019-05-11 10:48] MED LIST changes: +Prednisone20 MG PO
[2019-05-11 11:40] LABS: BASOPHILS ABSOLUTE AUTO 0.02 K/mm3 (0.00-0.23); BASOPHILS PERCENT AUTO 0 % (0-2); EOSINOPHILS PERCENT AUTO 0 % (0-6); Hematocrit 43.2 % (37.0-53.0); Hemoglobin 14.6 g/dL (13.5-17.5); IMMATURE GRAN ABSOLUTE AUTO 0.13 K/mm3 (0.00-0.10); IMMATURE GRAN PERCENT AUTO 1 % (0-1); LYMPHOCYTES ABSOLUTE AUTO 2.51 K/mm3 (0.84-5.20); LYMPHOCYTES PERCENT AUTO 11 % (21-46); MONOCYTES ABSOLUTE AUTO 1.03 K/mm3 (0.16-1.47); MONOCYTES PERCENT AUTO 5 % (4-13); Mean Corpuscular HGB 32.3 pg (26.0-34.0); Mean Corpuscular HGB Conc 33.8 g/dL (31.5-36.5); Mean Corpuscular Volume 96 fL (80-100); Mean Platelet Volume 10.1 fL (9.1-12.4); NEUTROPHILS ABSOLUTE AUTO 18.53 K/mm3 (1.96-9.15); NEUTROPHILS PERCENT AUTO 83 % (41-73); Platelet Count 327 K/mm3 (150-400); RDW Coefficient Variation 12.9 % (11.7-14.2); RDW Standard Deviation 45.4 fL (35.1-46.3); Red Blood Cell Count 4.52 M/mm3 (4.30-5.90); White Blood Cell Count 22.22 K/mm3 (4.00-11.30)
[2019-05-11 12:00] LABS: Alanine Aminotransfer (ALT/SGP 27 U/L (12-78); Albumin, Blood 3.6 g/dL (3.4-5.0); Albumin/Globulin Ratio 0.9 (0.8-1.8); Alk Phos 83 U/L (50-136); Anion Gap 7 mmol/L (6-16); Aspartate Aminotrans (AST/SGOT 20 U/L (12-37); Bilirubin, Total 0.5 mg/dL (0.1-1.0); Blood Urea Nitrogen 34 mg/dL (8-24); CO2, Blood 27 mmol/L (21-32); Calcium, Blood 8.5 mg/dL (8.5-10.1); Chloride, Blood 105 mmol/L (98-108); Globulin, Blood 3.8 g/dL (2.2-4.0); Glomerular Filtration Rate >60 (60-); Glucose, Blood 107 mg/dL (70-99); Potassium, Blood 4.2 mmol/L (3.5-5.5); Sodium, Blood 139 mmol/L (136-145); Total Protein, Blood 7.4 g/dL (6.4-8.2)
[2019-05-11] MEDS ORDERED: PREDNISONE (13:52)
--- NOTE | 2019-05-11 13:59 | NUR ---
PT TRANS PORTED TO [facility] FROM ED. AGREES WITH PLANNED SURGERY. PAIN LEVEL 9/10, PAIN MEDS GIVEN IN ED PRIOR TO PICKING UP.
--- NOTE | 2019-05-11 15:52 | NUR ---
05/11/19 1552 Lm Perla PT ON SCHEDULED ANTIBIOTICS
--- NOTE | 2019-05-11 18:22 | NUR ---
ARRIVAL NOTE: PT ARRIVED POST OP WITH MIDLINE INCISION, WITH A SM AMT OF BLOODY DRAINAGE AT THE TOP AND BOTTOM OF DRSG. CARPET INSTALLER HELPER REPORTS THAT WAS THERE PRIOR TO TNX. PT IS MOANING IN PAIN. WILL TX PER ORDERS, ABD IS EXTREMELY SENSITIVE TO TOUCH/MOVEMENT/COUGHING.
--- NOTE | 2019-05-11 18:45 | NUR ---
PT UPDATE: PT SETTLED INTO BED. BP'S REMAIN ELEVATED. MEDICATED WITH HYDRALAZINE PER ORDERS. CALLED PHARMACY TO PREPARE SUPERVISOR CONTINGENTS FOR PAIN CONTROL, PT IS MOANING IN BED AND ABD IS EXTREMELY TENDER. MATTA CATH DRAINING DARK YELLOW URINE, 800ML OUT. CALL LIGHT WITHIN REACH. MIDLINE INCISION UNCHANGED. MODERATE AMT OF BLOODY DRAINAGE PER PT DRAIN ON THE RLQ. COLOSTOMY WITH HEALTHY PINK STOMA TO LLQ. LR @ 125ML/HR STARTED.
--- NOTE | 2019-05-11 19:00 | NUR ---
REPORTED OFF TO ALEX MORRIS WHOM WILL NOW BE ASSUMING CARE OF THIS PT.
[2019-05-12 04:21] LABS: BASOPHILS ABSOLUTE AUTO 0.02 K/mm3 (0.00-0.23); BASOPHILS PERCENT AUTO 0 % (0-2); EOSINOPHILS PERCENT AUTO 0 % (0-6); Hematocrit 42.1 % (37.0-53.0); Hemoglobin 13.9 g/dL (13.5-17.5); IMMATURE GRAN ABSOLUTE AUTO 0.09 K/mm3 (0.00-0.10); IMMATURE GRAN PERCENT AUTO 1 % (0-1); LYMPHOCYTES ABSOLUTE AUTO 0.94 K/mm3 (0.84-5.20); LYMPHOCYTES PERCENT AUTO 5 % (21-46); MONOCYTES ABSOLUTE AUTO 1.21 K/mm3 (0.16-1.47); MONOCYTES PERCENT AUTO 6 % (4-13); Mean Corpuscular HGB 33.3 pg (26.0-34.0); Mean Platelet Volume 10.1 fL (9.1-12.4); NEUTROPHILS ABSOLUTE AUTO 17.21 K/mm3 (1.96-9.15); NEUTROPHILS PERCENT AUTO 88 % (41-73); Platelet Count 286 K/mm3 (150-400); RDW Coefficient Variation 13.2 % (11.7-14.2); RDW Standard Deviation 48.9 fL (35.1-46.3); Red Blood Cell Count 4.18 M/mm3 (4.30-5.90); White Blood Cell Count 19.47 K/mm3 (4.00-11.30)
[2019-05-12 04:22] LABS: Mean Corpuscular Volume 101 fL (80-100)
[2019-05-12 04:39] LABS: Alanine Aminotransfer (ALT/SGP 23 U/L (12-78); Albumin, Blood 3.1 g/dL (3.4-5.0); Albumin/Globulin Ratio 0.9 (0.8-1.8); Alk Phos 66 U/L (50-136); Anion Gap 4 mmol/L (6-16); Aspartate Aminotrans (AST/SGOT 23 U/L (12-37); Bilirubin, Total 0.7 mg/dL (0.1-1.0); Blood Urea Nitrogen 25 mg/dL (8-24); Bun/Creatinine Ratio 25.7 (12.0-20.0); CO2, Blood 26 mmol/L (21-32); Calcium, Blood 7.8 mg/dL (8.5-10.1); Chloride, Blood 107 mmol/L (98-108); Creatinine, Blood 0.97 mg/dL (0.60-1.20); Globulin, Blood 3.4 g/dL (2.2-4.0); Glomerular Filtration Rate >60 (60-); Glucose, Blood 122 mg/dL (70-99); Magnesium, Blood 1.9 mg/dL (1.6-2.4); Potassium, Blood 4.1 mmol/L (3.5-5.5); Sodium, Blood 137 mmol/L (136-145); Total Protein, Blood 6.5 g/dL (6.4-8.2)
--- NOTE | 2019-05-12 06:33 | NUR ---
SHIFT SUMMARY ASSUMED CARE OF PT AT 1900 HRS W PT AWAKE AND ALERT LYING IN BED, BUT SHOWING SIGNS OF AND REPORTING SIGNIFICANT PAIN. PER REPORT PT WAS RECENTLY ARRIVED ON UNIT, AND MOLECULAR PHYSICIST PUMP WAS IN PROCESS OF BEING SET UP. PT ORIENTED TO FUNCTIONING MOLECULAR PHYSICIST PUMP BY 2000 HRS, AND VERBALIZED RELIEF SOON AFTER. PT'S BP REMAINED ELEVATED T/O SHIFT, CONSISTENT W/ HIS HX WHILE HOSPITALIZED. ALL OTHER VSS. PATIENT MEDICATED AND TREATED PER MD ORDER AND UNIT PROTOCOL, WITH ALL WOUND DRESSINGS DRY AND INTACT. WILL CONTINUE TO MONITOR UNTIL PASSING CARE AND REPORT TO ONCOMING SHIFT. BED LOW AND LOCKED, CALL LIGHT W/IN REACH, NO ISSUES AT THIS TIME.
--- NOTE | 2019-05-12 17:06 | NUR ---
PATIENT IS ALERT AND ORIENTED. HE CALLS APPROPRIATELY. HIS MATTA WAS DC'D TODAY. HE IS URINATING ON HIS OWN USING A URINAL. DR. CRAWFORD SAW THE PATIENT THIS AFTERNOON. DR. CRAWFORD SAID HE PLANS TO KEEP THE PATIENT NPO UNTIL WEDNESDAY. DR. LOPEZ ASKED THE RN TO CONSULT THE TWILL CUTTER ABOUT PARENTAL NUTRITION. ORDERS HAVE BEEN PLACED. THE XIOMARA DRAIN IS DRAINING SEROSANGUINEOUS FLUIDS. THE NG TUBE IS SUCTIONING CLEAR, BROWN FLUID. NO OUTPUT FROM THE COLOSTOMY TODAY. THE WOUND VAC IS DRAINING WELL. CLINIMAX IS TO BE STARTED TONIGHT. WILL CONTINUE TO MONITOR THE PATIENT.
[2019-05-13 03:43] LABS: BASOPHILS ABSOLUTE AUTO 0.02 K/mm3 (0.00-0.23); BASOPHILS PERCENT AUTO 0 % (0-2); EOSINOPHILS ABSOLUTE AUTO 0.02 K/mm3 (0.00-0.68); EOSINOPHILS PERCENT AUTO 0 % (0-6); Hemoglobin 13.3 g/dL (13.5-17.5); IMMATURE GRAN ABSOLUTE AUTO 0.09 K/mm3 (0.00-0.10); IMMATURE GRAN PERCENT AUTO 1 % (0-1); LYMPHOCYTES ABSOLUTE AUTO 1.59 K/mm3 (0.84-5.20); LYMPHOCYTES PERCENT AUTO 13 % (21-46); MONOCYTES ABSOLUTE AUTO 1.13 K/mm3 (0.16-1.47); MONOCYTES PERCENT AUTO 9 % (4-13); Mean Corpuscular HGB Conc 32.4 g/dL (31.5-36.5); Mean Corpuscular Volume 102 fL (80-100); Mean Platelet Volume 10.3 fL (9.1-12.4); NEUTROPHILS ABSOLUTE AUTO 9.65 K/mm3 (1.96-9.15); NEUTROPHILS PERCENT AUTO 77 % (41-73); Platelet Count 276 K/mm3 (150-400); RDW Coefficient Variation 13.2 % (11.7-14.2); Red Blood Cell Count 4.03 M/mm3 (4.30-5.90)
[2019-05-13 03:58] LABS: Anion Gap 4 mmol/L (6-16); Blood Urea Nitrogen 26 mg/dL (8-24); Bun/Creatinine Ratio 26.5 (12.0-20.0); CO2, Blood 29 mmol/L (21-32); Calcium, Blood 7.8 mg/dL (8.5-10.1); Chloride, Blood 105 mmol/L (98-108); Creatinine, Blood 0.98 mg/dL (0.60-1.20); Glomerular Filtration Rate >60 (60-); Glucose, Blood 76 mg/dL (70-99); Potassium, Blood 3.7 mmol/L (3.5-5.5); Sodium, Blood 138 mmol/L (136-145)
--- NOTE | 2019-05-13 07:57 | NUR ---
SHIFT SUMMARY ASSUMED CARE OF PT AT 1900 HRS, PT AWAKE AND ALERT IN BED IN NO SIGNS OF DISTRESS. PT RATED HIS PAIN AT 4 AT THIS TIME, WHICH WAS ACCEPTABLE TO HIM. MEDICATED AND TREATED PT PER UNIT PROTOCOL AND MD ORDER. PT USED BEAD FLIPPER PUMP REGULARLY AND APPROPRIATELY. AT END OF SHIFT PT RATED HIS PAIN AT ZERO, WITH SPIKES OCCURRING W/ MOVEMENT. PT'S O2 DELIVERY TITRATED BETWEEN 2-4 L TO MAINTAIN SATURATION AT OR ABOVE 92%. PT USED URINAL APPROPRIATELY THIS SHIFT W/ NO ISSUES, URINE CLEAR AND HARJIT. REPORT AND CARE PASSED TO ONCOMING SHIFT AT 0700, PT RESTING IN BED, WHEELS LOCKED, BED LOW, CALL LIGHT W/IN REACH.
--- NOTE | 2019-05-13 08:00 | NUR ---
PT PLEASANT COOP A/O X3. PAIN MANAGED TO PT SATISFACTION [facility] TRANSPORTATION SPECIALIST PUMP. H/R REG, NO MURMER NOTED. PER TELE S TACH AT 130. LUNGS CLEAR T/O ON 5L O2 N/C TODAY. RESP EASY, UNLABORED. BT X4 HAS COLOSTOMY BAG. L ABD. NO BM NOTED. VOIDS ABOUT 100 CC URINAL . 2 MAX ASST TO CHAIR NEEDED. TRANSPORTATION SPECIALIST PUMP PER EMAR ORDERS. BED I NLOW POSITION, CALL LITE IN REACH, CALLS APPROP
--- NOTE | 2019-05-13 17:17 | NUR ---
called dr aileen lindsey h/r. watching. no new orders.
--- NOTE | 2019-05-13 18:34 | NUR ---
PT PLEASANT TODAY. SOMEWHAT [id number]. STATES PAIN MANAGEDD WITH DIE STAMPING PRESS OPERATOR PUMP , ONLY HAS SHOOTING PAIN WHEN MOVES . H/R HAS BEEN IN [address] NOTIFIED. PT REMAINS NPO AND NG TUBE ON LIS. NO OTHER CONCERNS AT THIS TIME. BED IN LOW POSITION, CALL LITEIN REACH. CALLSPAPPROP
[2019-05-14 05:43] LABS: BASOPHILS ABSOLUTE AUTO 0.02 K/mm3 (0.00-0.23); BASOPHILS PERCENT AUTO 0 % (0-2); EOSINOPHILS PERCENT AUTO 1 % (0-6); Hematocrit 37.2 % (37.0-53.0); Hemoglobin 12.3 g/dL (13.5-17.5); IMMATURE GRAN ABSOLUTE AUTO 0.07 K/mm3 (0.00-0.10); IMMATURE GRAN PERCENT AUTO 1 % (0-1); LYMPHOCYTES ABSOLUTE AUTO 1.27 K/mm3 (0.84-5.20); LYMPHOCYTES PERCENT AUTO 13 % (21-46); MONOCYTES ABSOLUTE AUTO 1.12 K/mm3 (0.16-1.47); MONOCYTES PERCENT AUTO 12 % (4-13); Mean Corpuscular HGB 32.5 pg (26.0-34.0); Mean Corpuscular HGB Conc 33.1 g/dL (31.5-36.5); Mean Platelet Volume 9.9 fL (9.1-12.4); NEUTROPHILS ABSOLUTE AUTO 7.14 K/mm3 (1.96-9.15); NEUTROPHILS PERCENT AUTO 74 % (41-73); Platelet Count 251 K/mm3 (150-400); RDW Coefficient Variation 13.1 % (11.7-14.2); RDW Standard Deviation 46.6 fL (35.1-46.3); Red Blood Cell Count 3.78 M/mm3 (4.30-5.90); White Blood Cell Count 9.72 K/mm3 (4.00-11.30)
[2019-05-14 05:47] LABS: Mean Corpuscular Volume 98 fL (80-100)
[2019-05-14 06:03] LABS: Anion Gap 5 mmol/L (6-16); Blood Urea Nitrogen 25 mg/dL (8-24); Bun/Creatinine Ratio 26.3 (12.0-20.0); CO2, Blood 31 mmol/L (21-32); Calcium, Blood 7.8 mg/dL (8.5-10.1); Chloride, Blood 101 mmol/L (98-108); Creatinine, Blood 0.95 mg/dL (0.60-1.20); Glomerular Filtration Rate >60 (60-); Glucose, Blood 107 mg/dL (70-99); Potassium, Blood 3.7 mmol/L (3.5-5.5); Sodium, Blood 137 mmol/L (136-145)
--- NOTE | 2019-05-14 06:23 | NUR ---
SHIFT SUMMARY ASSUMED CARE OF PT AT 1900 HRS, PT LYING AWAKE IN BED W/ NO SIGNS OF DISTRESS. PT RATED HIS PAIN AT 0/10 AT THIS TIME. MEDICATED AND TREATED PT PER MD ORDER AND UNIT PROTOCOL; PT UTILIZED INSTRUMENT MAKER PUMP APPROPRIATELY NEEDING NO NON-ROUTINE INTERVENTIONS. PT WAS CONTINENT OF URINE WITH FREQUENT SMALL VOIDS TO URINAL, AND NO BOWEL OUTPUT THIS SHIFT. PT MAINTAINED 02 SATURATION AT OR ABOVE 92% WITH 5L O2 VIA NC. WILL CONTINUE TO MONITOR AND WILL PASS CARE AND REPORT TO ONCOMING SHIFT AT 0700. BED LOCKED AND LOW, CALL LIGHT W/IN REACH, NO NEEDS AT THIS TIME.
--- NOTE | 2019-05-14 11:09 | NUR ---
ASSUMED CARE APPROXIMATELY 0700; PT ALERT; HIGH FOWLERS IN BED; LINOLEUM LAYER HELPER PUMP PRESENT; PT STATES PAIN IS MORE UNDER CONTROL THIS AM; XIOMARA DRAIN AND VIBHA DRAIN PRESENT; STOMA L ABDOMEN PINK AND BEEFY; PT ON 5L NC; PT USING URINAL AT BEDSIDE; DR. LOPEZ BY TO SEE PATIENT; DR. CRAWFORD BY TO SEE PT WELL; DR. LOPEZ DISCUSSED W/ THIS NURSE STATUS CHANGE OF THIS PT TO SURGICAL FLOOR; CALL LIGHT IN REACH; BED IN LOWEST POSITION;
--- NOTE | 2019-05-14 13:44 | NUR ---
ASSUMED CARE THIS RN ASSUMED CARE OF PT APPROX 1300. PT ORIENTED TO RM, CALL LIGHT IN PLACE. VISITORS AT BEDSIDE.
--- NOTE | 2019-05-14 15:25 | NUR ---
CALLED RT TODAY TO SET UP CONT PULSE OX.
--- NOTE | 2019-05-14 17:58 | NUR ---
PT REFUSED SCD'S. EDUCATED ON BENEFITS AND RISKS AND ENCOURAGED TO WEAR. PT CONTINUED TO REFUSE WEARING SCD'S.
--- NOTE | 2019-05-14 18:34 | NUR ---
SHIFT SUMMARY PT WAS TRANSFERRED TO SURG FLOOR FROM PCU TODAY. HAS BEEN IN BED, REPOSITIONED BY RN THIS AFTERNOON. REFUSED SCD'S. NG TUBE IN PLACE. OSTOMY IN PLACE. REFUSED LINEN AND GOWN CHANGE. ASSISTED WTIH ADL'S PRN.
[2019-05-15 05:15] LABS: BASOPHILS ABSOLUTE AUTO 0.01 K/mm3 (0.00-0.23); BASOPHILS PERCENT AUTO 0 % (0-2); EOSINOPHILS ABSOLUTE AUTO 0.18 K/mm3 (0.00-0.68); EOSINOPHILS PERCENT AUTO 3 % (0-6); Hematocrit 33.2 % (37.0-53.0); Hemoglobin 11.2 g/dL (13.5-17.5); IMMATURE GRAN ABSOLUTE AUTO 0.08 K/mm3 (0.00-0.10); IMMATURE GRAN PERCENT AUTO 1 % (0-1); LYMPHOCYTES PERCENT AUTO 16 % (21-46); MONOCYTES ABSOLUTE AUTO 1.11 K/mm3 (0.16-1.47); MONOCYTES PERCENT AUTO 16 % (4-13); Mean Corpuscular HGB 33.2 pg (26.0-34.0); Mean Corpuscular HGB Conc 33.7 g/dL (31.5-36.5); Mean Corpuscular Volume 99 fL (80-100); Mean Platelet Volume 10.3 fL (9.1-12.4); NEUTROPHILS PERCENT AUTO 64 % (41-73); Platelet Count 247 K/mm3 (150-400); RDW Coefficient Variation 12.7 % (11.7-14.2); RDW Standard Deviation 45.9 fL (35.1-46.3); Red Blood Cell Count 3.37 M/mm3 (4.30-5.90); White Blood Cell Count 6.88 K/mm3 (4.00-11.30)
[2019-05-15 05:28] LABS: Anion Gap 5 mmol/L (6-16); Blood Urea Nitrogen 21 mg/dL (8-24); CO2, Blood 27 mmol/L (21-32); Calcium, Blood 7.4 mg/dL (8.5-10.1); Chloride, Blood 103 mmol/L (98-108); Creatinine, Blood 0.75 mg/dL (0.60-1.20); Glomerular Filtration Rate >60 (60-); Glucose, Blood 102 mg/dL (70-99); Potassium, Blood 3.3 mmol/L (3.5-5.5); Sodium, Blood 135 mmol/L (136-145)
--- NOTE | 2019-05-15 06:16 | NUR ---
SHIFT SUMMARY PT POD#4 PREPYLORIC ULCER REPAIR. AAOX4/FLAT AFFECT. DISCOMFORT CONTROLLED WITH SENIOR PROPERTY ACCOUNTANT USE. ABD INCISION WITH VIBHA DRESSING C/D/I. XIOMARA SECURE WITH GAUZED CHANGED X1 THIS SHIFT + SMALL AMOUNT SS DRAINAGE NOTED. OSTOMY SECURE WITH SCANT AMOUNT GREEN LIQUID + LARGE AMOUNTS OF FLATUS. NGT SECURE TO LIS WITH MODERATE AMOUNT CLEAR/GREEN OUT. PT TO HAVE AN UPPER GI SERIES TODAY. NO ACUTE CHANGES THIS NOC SHIFT. PT RESTING WELL THIS AM WITH CALL LIGHT IN REACH.
--- NOTE | 2019-05-15 10:30 | NUR ---
Initial palliative care consult: Sampson is a 63 year old gentleman with a history of diverticulosis s/p colectomy and diverting colostomy, COPD, HTN, subdural hemorrhage and PVD. He was admitted for abd pain and had surgery on 05/11/19 for a perforated ulcer repair. He currently is NPO, on clinimix with an NG tube. His ostomy is passing some flatus but no stool so far. He is anxiously awaiting an upper GI test today. He lives alone with his cat. His neighbor is currently helping to take care of his cat while he is here. He does not drive. He relies on public transportation. He has three older sisters, they all live out of area. One in [place], [place], one in [place] and one in [place]. He enjoys his solitude, however he does report that he feel "scared" at times due to something medically happening and no one is around to help him. Discussed option of life alert system. He states he has thought out one, however he chooses to keep his cell phone on him at all times. He reports he had a stroke about a year ago. At that time he said he fell in his bathroom and he laid on the floor for several days until his sister who used to live here came and found him. He states he was in rehab after his stroke and improved to be able to go back home. He reports now that after 50 years of smoking (he quit last August) he has SOB with activity. He finds it difficult to cook and clean. He stated that he used to have a caregiver for a couple hours a day, but that the caregiver hours were taken away and he doesn't know why. He reports he received paperwork from the state for him to sign that says he is declining caregiver hours, however he reports that is not the case and he is refusing to sign it. Spoke with MANJULA Arnett, and she will contact [facility] to investigate the caregiver hours and eligibility. He will likely need rehab. He currently has a POLST on file from 2018. Discussed AD paperwork with him and he became upset and did not want to discuss it. He states "I think I have one of those already." Shifted focus of assessment to symptom managment. He reports pain is 3-4/10 which he reports is much improved. No c/o nausea. SOB with exertion which he reports is his normal lung function. NPO while NG tube in place. Voids frequently which he also reports as "normal for me." He isn't seeing an urologist currently. He reports he manages his ostomy at home. He is anxious for the test and to get results from the upper GI that is scheduled for today. Emotional support given. He would like to continue to have caregivers assist in his home and possibly increase the number of hours he receives. MANJULA Arnett, plans to follow up with [employer] re: caregiver hours and potential rehab. PC will follow for symptom managment and continued advanced care planning.
--- NOTE | 2019-05-15 17:35 | NUR ---
SUMMARY POD 4. PT'S PAIN CONTROLLED W/CHISELER HEAD. IV FLUIDS INFUSING W/O DIFFICULTY. NG TUBE DC'D THIS EVENING PER ORDERS. PT TOLERATED WELL. PLAN TO STARTS SIPS OF CLEAR LIQUIDS. CALL LIGHT IN REACH.
--- NOTE | 2019-05-16 07:02 | NUR ---
05/16/19 0540 PT C/O GENERAL MALAISE. DENIED PAIN. BLOOD SUGAR CHECKED AND WAS 113. STATED HE WAS CONFUSED AFTER AWAKENING THIS AM. INFORMED THAT HE IS ON IV PAIN MEDS AND THAT COULD BE THE CAUSE. C/O STUFFY NOSE WELL. DOOR PULLER MENU/ TOTALS CHECKED WITH [facility] SPECIALISTNIGHAT.
--- NOTE | 2019-05-16 17:34 | NUR ---
summary NO ACUTE CHANGES T/O SHIFT. PT ANXIOUS AT TIMES. SOB W/EXERTION. OSTOMY PUTTING OUT DARK BROWN UNFORMED STOOL AND FLATUS. PT WORKED W/THERAPY. DECLINED GETTING UP FOR MEAL. PAIN CONTROLLED PER PUBLIC HEALTH SOCIAL WORKER. CALL LIGHT IN REACH.
[2019-05-17 03:52] LABS: BASOPHILS ABSOLUTE AUTO 0.02 K/mm3 (0.00-0.23); BASOPHILS PERCENT AUTO 0 % (0-2); EOSINOPHILS ABSOLUTE AUTO 0.26 K/mm3 (0.00-0.68); EOSINOPHILS PERCENT AUTO 5 % (0-6); Hematocrit 32.2 % (37.0-53.0); Hemoglobin 10.7 g/dL (13.5-17.5); IMMATURE GRAN ABSOLUTE AUTO 0.09 K/mm3 (0.00-0.10); IMMATURE GRAN PERCENT AUTO 2 % (0-1); LYMPHOCYTES PERCENT AUTO 21 % (21-46); MONOCYTES ABSOLUTE AUTO 0.83 K/mm3 (0.16-1.47); MONOCYTES PERCENT AUTO 15 % (4-13); Mean Corpuscular HGB 32.1 pg (26.0-34.0); Mean Corpuscular HGB Conc 33.2 g/dL (31.5-36.5); Mean Corpuscular Volume 97 fL (80-100); Mean Platelet Volume 10.1 fL (9.1-12.4); NEUTROPHILS PERCENT AUTO 58 % (41-73); Platelet Count 278 K/mm3 (150-400); RDW Coefficient Variation 12.8 % (11.7-14.2); RDW Standard Deviation 45.5 fL (35.1-46.3); Red Blood Cell Count 3.33 M/mm3 (4.30-5.90)
[2019-05-17 04:05] LABS: Anion Gap 7 mmol/L (6-16); Blood Urea Nitrogen 16 mg/dL (8-24); Bun/Creatinine Ratio 21.8 (12.0-20.0); CO2, Blood 26 mmol/L (21-32); Calcium, Blood 7.8 mg/dL (8.5-10.1); Chloride, Blood 106 mmol/L (98-108); Creatinine, Blood 0.73 mg/dL (0.60-1.20); Glomerular Filtration Rate >60 (60-); Glucose, Blood 97 mg/dL (70-99); Phosphorus, Blood 3.8 mg/dL (2.5-4.9); Potassium, Blood 3.5 mmol/L (3.5-5.5); Sodium, Blood 139 mmol/L (136-145)
--- NOTE | 2019-05-17 07:30 | NUR ---
dr estrella by to see pt ok to sl and start on oral pain meds pt stated he can not take norco causes n/v will start ultram also can start reg food
--- NOTE | 2019-05-17 07:33 | NUR ---
SHIFT SUMMARY PT A/O VENEER TRIMMER PUMP C CONTINUOUS AND BOLUS INFUSION OF FENTANYL. 2.5L O2 NC. USING URINAL AT BEDSIDE FREQUENTLY WHICH HE SAYS IS NOTHING NEW FOR HIM. XIOMARA DRAIN DRAINING SEROSANGUINEOUS DRAINAGE. OSTOMY OUTPUT DARK BROWN SEMIFORMED STOOL. HE WAS ABLE TO SLEEP ON AND OFF T/O NIGHT. CALL LIGHT IN REACH.
--- NOTE | 2019-05-17 09:00 | NUR ---
pt working with physical therapy
--- NOTE | 2019-05-17 10:15 | NUR ---
dr gallagher by to see pt plan to go to snf called dr estrella office to let him know message left or called back dr estrella to come and see pt after his case to remove the peter drain discussed with ss to get later transport time
--- NOTE | 2019-05-17 11:30 | NUR ---
dr estrella by to see pt peter removed and pic wound vac dressing also pt replaced ostomy i put a new dressing over midline elena and dr estrella placed small dressing with opsite
--- NOTE | 2019-05-17 16:23 | NUR ---
DISCHARGE TO SNF [facility] WC ESCORT NO ACUTE CHANGES
== END 2019-05-17 16:23 | DRG 326 ==
LOC: ER 10:48 → PCU 13:36 → SURS 05-14 12:30
PROVIDERS: Emergency Medicine; Nurse Practitioner Acute Care; Surgery; ADMIT Hospitalist
PROC: 0DB78ZX Excision of Stomach, Pylorus, Via Natural or Artificial Opening Endoscopic, Diagnostic (ICD-10-PCS; 2019-05-11)
PROC: 0DU Gastrointestinal System, Supplement (ICD-10-PCS; principal; 2019-05-11 16:15)
DX: K25.5 Chronic or unspecified gastric ulcer with perforation (principal); K65.9 Peritonitis, unspecified; J44.9 Chronic obstructive pulmonary disease, unspecified; I10 Essential (primary) hypertension; R09.02 Hypoxemia; I73.9 Peripheral vascular disease, unspecified; F12.90 Cannabis use, unspecified, uncomplicated; Z99.81 Dependence on supplemental oxygen
CPT/HCPCS: 36415; 71045; 74176; 74240; 80048; 80053; 82947; 83605; 83690; 83735; 84100; 85025; 87040; 87338; 88305; 88342; 93005; 93010; 94640; 94760; 96361; 96365; 96375; 96376; 97110; 97162; 97530; 99285-25; C1751; C9113; J0171; J0360; J1100; J1170; J1885; J2250; J2370; J2405; J2543; J2704; J2710; J3010; J7030; J7120

== ENCOUNTER 2023-12-19 23:44 | Observation (INO) | payer OTHER ==
[~2023-12-19] VITALS: Ht 172.7 cm; Wt 90.7 kg
[~2023-12-19 23:44] MED LIST changes: +PREDNISONE
[2023-12-20] MEDS ORDERED: PANTOPRAZOLE SO40 M2 PO (00:04)
[2023-12-20] MEDS ORDERED: LOSA25 PO (00:04)
[2023-12-20 00:17] LABS: BASOPHILS ABSOLUTE AUTO 0.02 K/mm3 (0.00-0.23); BASOPHILS PERCENT AUTO 0 % (0-2); EOSINOPHILS ABSOLUTE AUTO 0.14 K/mm3 (0.00-0.68); EOSINOPHILS PERCENT AUTO 2 % (0-6); Hematocrit 39.5 % (37.0-53.0); Hemoglobin 13.8 g/dL (13.5-17.5); IMMATURE GRAN ABSOLUTE AUTO 0.02 K/mm3 (0.00-0.10); IMMATURE GRAN PERCENT AUTO 0 % (0-1); LYMPHOCYTES ABSOLUTE AUTO 1.66 K/mm3 (0.84-5.20); LYMPHOCYTES PERCENT AUTO 18 % (21-46); MONOCYTES ABSOLUTE AUTO 0.73 K/mm3 (0.16-1.47); MONOCYTES PERCENT AUTO 8 % (4-13); Mean Corpuscular HGB 32.2 pg (26.0-34.0); Mean Corpuscular HGB Conc 34.9 g/dL (31.5-36.5); Mean Corpuscular Volume 92 fL (80-100); Mean Platelet Volume 10.4 fL (9.1-12.4); NEUTROPHILS ABSOLUTE AUTO 6.74 K/mm3 (1.96-9.15); NEUTROPHILS PERCENT AUTO 73 % (41-73); Platelet Count 276 K/mm3 (150-400); RDW Coefficient Variation 12.1 % (11.7-14.2); RDW Standard Deviation 40.3 fL (35.1-46.3); Red Blood Cell Count 4.29 M/mm3 (4.30-5.90); White Blood Cell Count 9.31 K/mm3 (4.00-11.30)
[2023-12-20] MEDS ORDERED: MethylPREDNISolone Sod Succ 125 MG Vial IV ONE (00:20)
[2023-12-20] MEDS ORDERED: Albuterol 2.5 MG/3 ML VIAL INH SCH (00:20)
[2023-12-20 00:41] LABS: Albumin, Blood 3.8 g/dL (3.4-5.0); Bilirubin, Total 0.6 mg/dL (0.1-1.0); Calcium, Blood 9.2 mg/dL (8.5-10.1); Creatinine, Blood 0.85 mg/dL (0.60-1.20); Globulin, Blood 3.8 g/dL (2.2-4.0); Total Protein, Blood 7.6 g/dL (6.4-8.2)
[2023-12-20 01:22] LABS: Influenza A, PCR NEGATIVE (NEGATIVE); Influenza B, PCR NEGATIVE (NEGATIVE); Resp Syncytial Virus, PCR NEGATIVE (NEGATIVE); SARS-Cov-2 (COVID-19) PCR, MMC NEGATIVE (NEGATIVE)
[2023-12-20] MEDS ORDERED: Potassium Chloride 20 MEQ TabCR PO ONE (02:05)
[2023-12-20] MEDS ORDERED: Ipratropium/Albuterol SulF 2.5-0.5MG/3 ML Amp INH ONE (02:05)
[2023-12-20] MEDS ORDERED: Ipratropium/Albuterol SulF 2.5-0.5MG/3 ML Amp INH SCH (02:50)
[2023-12-20] MEDS ORDERED: Acetaminophen 325 MG TABLET PO PRN (02:50)
[2023-12-20 02:59] LABS: Magnesium, Blood 1.9 mg/dL (1.6-2.4)
[2023-12-20 03:14] LABS: BASOPHILS ABSOLUTE AUTO 0.04 K/mm3 (0.00-0.23); BASOPHILS PERCENT AUTO 0 % (0-2); EOSINOPHILS ABSOLUTE AUTO 0.01 K/mm3 (0.00-0.68); EOSINOPHILS PERCENT AUTO 0 % (0-6); Hematocrit 39.3 % (37.0-53.0); Hemoglobin 13.6 g/dL (13.5-17.5); IMMATURE GRAN ABSOLUTE AUTO 0.04 K/mm3 (0.00-0.10); IMMATURE GRAN PERCENT AUTO 0 % (0-1); LYMPHOCYTES ABSOLUTE AUTO 0.87 K/mm3 (0.84-5.20); LYMPHOCYTES PERCENT AUTO 8 % (21-46); MONOCYTES ABSOLUTE AUTO 0.25 K/mm3 (0.16-1.47); MONOCYTES PERCENT AUTO 2 % (4-13); Mean Corpuscular HGB 32.2 pg (26.0-34.0); Mean Corpuscular HGB Conc 34.6 g/dL (31.5-36.5); Mean Corpuscular Volume 93 fL (80-100); Mean Platelet Volume 10.2 fL (9.1-12.4); NEUTROPHILS ABSOLUTE AUTO 9.73 K/mm3 (1.96-9.15); NEUTROPHILS PERCENT AUTO 89 % (41-73); Platelet Count 263 K/mm3 (150-400); RDW Standard Deviation 40.9 fL (35.1-46.3); Red Blood Cell Count 4.22 M/mm3 (4.30-5.90); White Blood Cell Count 10.94 K/mm3 (4.00-11.30)
[2023-12-20] MEDS ORDERED: LOSA50 PO (03:23)
[2023-12-20 03:32] LABS: Bilirubin, Total 0.5 mg/dL (0.1-1.0); Bun/Creatinine Ratio 18.4 (12.0-20.0); Calcium, Blood 9.3 mg/dL (8.5-10.1); Creatinine, Blood 0.87 mg/dL (0.60-1.20); Potassium, Blood 2.7 mmol/L (3.5-5.5)
[2023-12-20 03:56] VITALS: BP 173/98
[2023-12-20 05:19] LABS: Base Excess Venous 7.5 mmol/L; Bicarbonate Venous 30.8 mmol/L (24.0-30.0)
--- NOTE | 2023-12-20 05:21 | NUR ---
EOS NOTE: PT ARRIVED TO THE FLOOR AT 0350, AMBULATED SAFELY FROM STRETCHER TO BED, VSS. AO/X4, PATIENT WAS ABLE TO CHANGE HIS OWN OSTOMY BAG SUCCESSFULLY. 4L NC WHICH IS BASELINE FOR PATIENT, PATIENT RESTED QUIETLY MOST OF NIGHT AFTER HIS ARRIVAL. VSS, WILL CONTINUE TO MONITOR.
--- NOTE | 2023-12-20 05:25 | NUR ---
CRITICAL RESULT: NOTIFIED DR VALLEJO OF CRITICAL LAB, PH 7.50. NO NEW ORDERS RECEIVED. WILL CONTINUE TO MONIOR.
[2023-12-20] MEDS ORDERED: Pantoprazole Sodium 40 MG Tab PO SCH (06:00)
[2023-12-20] MEDS ORDERED: MethylPREDNISolone Sod Succ 125 MG Vial IV SCH (06:00)
[2023-12-20] MEDS ORDERED: Potassium Chloride 20 MEQ TabCR PO SCH (06:00)
[2023-12-20 07:21] VITALS: BP 156/103
[2023-12-20] MEDS ORDERED: Enoxaparin 40 MG/0.4 ML SYR SC SCH (09:00)
[2023-12-20] MEDS ORDERED: GuaiFENesin 600 MG TabCR PO SCH (09:00)
[2023-12-20] MEDS ORDERED: Losartan Potassium 25 MG Tab PO SCH (09:00)
[2023-12-20 10:03] LABS: Base Excess Venous 5.7 mmol/L; PCO2 Venous 41.5 mmHg (38-42); pH Blood Venous 7.46 (7.34-7.37)
--- NOTE | 2023-12-20 10:17 | NUR ---
0930 [facility] for [facility] med. will send
[2023-12-20 10:20] LABS: Calcium, Blood 9.4 mg/dL (8.5-10.1); Creatinine, Blood 0.86 mg/dL (0.60-1.20); Potassium, Blood 3.2 mmol/L (3.5-5.5)
[2023-12-20] MEDS ORDERED: Potassium Chloride 20 MEQ/15 ML UDC PO STA (15:04)
[2023-12-20 15:16] VITALS: BP 174/94
[2023-12-20] MEDS ORDERED: Losartan Potassium 50 MG Tab PO ONE (15:25)
[2023-12-20] MEDS ORDERED: GUAI600T33 PO (16:17)
[2023-12-20] MEDS ORDERED: Ventolin5 MG/1 ML INH (16:18)
[2023-12-20] MEDS ORDERED: IPRAT-ALBUT 0.5-3 ML INH (16:19)
[2023-12-20] MEDS ORDERED: DOXY100 PO (16:19)
[2023-12-20] MEDS ORDERED: Prednisone10 MG PO (16:20)
--- NOTE | 2023-12-20 16:47 | NUR ---
REVIEWED DISCHARGE WITH PT. [facility] VERBALIZED UNDERSTANDING MEDS AND INST. MEDS TO [facility] PER PT. PT TO DRESS SELF. THEN CALL FOR TRANSPORT
--- NOTE | 2023-12-20 16:58 | NUR ---
PT DISCHARGED , WHEELED TO DOOR BY AIDE AT 1700
== END 2023-12-20 16:58 | disposition home or self-care (01) ==
LOC: ER 23:44 → MEDS 23:45
PROVIDERS: Emergency Medicine; Internal Medicine; ADMIT Student in an Organized Health Care Education/Training Program
DX: J96.21 Acute and chronic respiratory failure with hypoxia (principal); J44.1 Chronic obstructive pulmonary disease with (acute) exacerbation; I10 Essential (primary) hypertension; F32.9 Major depressive disorder, single episode, unspecified; I73.9 Peripheral vascular disease, unspecified; Z66 Do not resuscitate; Z79.899 Other long term (current) drug therapy; Z87.891 Personal history of nicotine dependence; Z88.8 Allergy status to other drugs, medicaments and biological substances; Z99.81 Dependence on supplemental oxygen
CPT/HCPCS: 0241U; 36415; 71045; 80048; 80053; 82803; 83735; 83880; 85025; 93005; 93010; 94640; 94644; 94664; 94760; 96365; 96372; 96374; 96375; 96376; 99285-25; A9270; G0378; J1650; J2919

== ENCOUNTER 2024-01-22 05:16 | Inpatient (IN) | payer OTHER ==
[~2024-01-22] VITALS: Ht 170.2 cm; Wt 93.3 kg
[~2024-01-22 05:16] MED LIST changes: +DOXY100 PO; +GUAI600T33 PO; +IPRAT-ALBUT 0.5-3 ML INH; +LOSA25 PO; +LOSA50 PO; +PANTOPRAZOLE SO40 M2 PO; +Prednisone10 MG PO; +Ventolin5 MG/1 ML INH
[2024-01-22 06:12] LABS: BASOPHILS ABSOLUTE AUTO 0.01 K/mm3 (0.00-0.23); BASOPHILS PERCENT AUTO 0 % (0-2); EOSINOPHILS ABSOLUTE AUTO 0.06 K/mm3 (0.00-0.68); EOSINOPHILS PERCENT AUTO 1 % (0-6); Hematocrit 37.4 % (37.0-53.0); Hemoglobin 12.6 g/dL (13.5-17.5); IMMATURE GRAN ABSOLUTE AUTO 0.02 K/mm3 (0.00-0.10); IMMATURE GRAN PERCENT AUTO 0 % (0-1); LYMPHOCYTES ABSOLUTE AUTO 0.32 K/mm3 (0.84-5.20); LYMPHOCYTES PERCENT AUTO 7 % (21-46); MONOCYTES ABSOLUTE AUTO 0.74 K/mm3 (0.16-1.47); MONOCYTES PERCENT AUTO 16 % (4-13); Mean Corpuscular HGB 31.9 pg (26.0-34.0); Mean Corpuscular HGB Conc 33.7 g/dL (31.5-36.5); Mean Corpuscular Volume 95 fL (80-100); Mean Platelet Volume 10.2 fL (9.1-12.4); NEUTROPHILS ABSOLUTE AUTO 3.58 K/mm3 (1.96-9.15); NEUTROPHILS PERCENT AUTO 76 % (41-73); Platelet Count 209 K/mm3 (150-400); RDW Coefficient Variation 12.2 % (11.7-14.2); RDW Standard Deviation 42.7 fL (35.1-46.3); Red Blood Cell Count 3.95 M/mm3 (4.30-5.90); White Blood Cell Count 4.73 K/mm3 (4.00-11.30)
[2024-01-22 06:36] LABS: Albumin, Blood 3.7 g/dL (3.4-5.0); Bilirubin, Total 0.3 mg/dL (0.1-1.0); Bun/Creatinine Ratio 18.3 (12.0-20.0); Calcium, Blood 8.4 mg/dL (8.5-10.1); Creatinine, Blood 0.99 mg/dL (0.60-1.20); Globulin, Blood 3.6 g/dL (2.2-4.0); Total Protein, Blood 7.3 g/dL (6.4-8.2)
[2024-01-22] MEDS ORDERED: Potassium Chloride 20 MEQ TabCR PO ONE (06:50)
[2024-01-22] MEDS ORDERED: MethylPREDNISolone Sod Succ 125 MG Vial IV ONE (06:55)
[2024-01-22] MEDS ORDERED: Ipratropium/Albuterol SulF 2.5-0.5MG/3 ML Amp INH ONE (08:05)
[2024-01-22] MEDS ORDERED: Ipratropium/Albuterol SulF 2.5-0.5MG/3 ML Amp INH SCH (09:45)
[2024-01-22] MEDS ORDERED: Albuterol 2.5 MG/3 ML VIAL INH PRN ×2 (09:45→10:30)
[2024-01-22] MEDS ORDERED: Remdesivir (EUA) 200 MG in NS 250 ML IV ONE (10:55)
[2024-01-22] MEDS ORDERED: Azithromycin 250 MG Tab PO SCH (11:00)
[2024-01-22] MEDS ORDERED: MethylPREDNISolone Sod Succ 125 MG Vial IV SCH (12:00)
[2024-01-22 16:23] VITALS: BP 167/87
--- NOTE | 2024-01-22 16:35 | NUR ---
ADMIT PT ADMITTED TO 339. ORIENTED TO ROOM AND CALL LIGHT. EDCUATED THAT THIS IS A TOBACCO FREE FACILITY AND NO IGNITION SOURCES NOTED. PT PROVIDED WITH SNACK & WATER. REPLACED COLOSTOMY APPLIANCE. PT C/O HEADACHE. ATTEMPT TO NOTIFY , NO ANSWER AT THIS TIME. PT SATING IN THE 90S ON 5L O2 VIA NC. CONT PULSE OX IN PLACE. DENIES OTHER NEEDS AT THIS TIME
[2024-01-22] MEDS ORDERED: Acetaminophen 325 MG TABLET PO PRN (16:55)
--- NOTE | 2024-01-22 17:59 | NUR ---
SHIFT SUMMARY PT ADMITTED TODAY. COLOSTOMY CHANGED. PT SATING IN THE 90S ON 5L O2 VIA NC. C/O HEADACHE. DR. LAUREN NOTIFIED & TYLENOL ORDERED/GIVEN. NO OTHER ACUTE CHANGES IN ASSESSMENT AT THIS TIME. VS REVIEWED. CALL LIGHT IN REACH. DENIES OTHER NEEDS AT THIS TIME.
[2024-01-22 20:07] VITALS: BP 134/77
[2024-01-22] MEDS ORDERED: Sennosides 8.6 MG Tab PO SCH (21:00)
[2024-01-22] MEDS ORDERED: Docusate Sodium 100 MG Cap PO SCH (21:00)
[2024-01-23 02:22] VITALS: BP 121/85
--- NOTE | 2024-01-23 04:15 | NUR ---
SHIFT SUMMARY PATIENT HAD NO ACUTE CHANGES. AXOX 4 AND ONE ASSIST TO BSC. USES URINAL AT BEDSIDE. DENIES CHEST PAIN AND N/V. VSS/AFEBRILE. ON 5L O2 NC AND BASELINE. COLONOSTOMY INTACT. STATING 92-96% ON CONTINUOUS PULSE OXIMETRY. DESTATS DOWN TO 84-86% WHEN SLEEP/SNORING AT TIMES. CALL LIGHT IN REACH. BED IN LOWEST POSITION. WILL CONTINUE TO MONITOR UNTIL DAY SHIFT NURSE ASSUMES CARE.
[2024-01-23] MEDS ORDERED: Pantoprazole Sodium 40 MG Tab PO SCH (06:00)
[2024-01-23 06:07] LABS: BASOPHILS PERCENT AUTO 0 % (0-2); EOSINOPHILS PERCENT AUTO 0 % (0-6); Hematocrit 36.3 % (37.0-53.0); Hemoglobin 12.4 g/dL (13.5-17.5); IMMATURE GRAN ABSOLUTE AUTO 0.03 K/mm3 (0.00-0.10); IMMATURE GRAN PERCENT AUTO 0 % (0-1); LYMPHOCYTES ABSOLUTE AUTO 0.34 K/mm3 (0.84-5.20); LYMPHOCYTES PERCENT AUTO 4 % (21-46); MONOCYTES ABSOLUTE AUTO 0.44 K/mm3 (0.16-1.47); MONOCYTES PERCENT AUTO 5 % (4-13); Mean Corpuscular HGB 31.6 pg (26.0-34.0); Mean Corpuscular HGB Conc 34.2 g/dL (31.5-36.5); Mean Corpuscular Volume 93 fL (80-100); Mean Platelet Volume 10.2 fL (9.1-12.4); NEUTROPHILS ABSOLUTE AUTO 7.59 K/mm3 (1.96-9.15); NEUTROPHILS PERCENT AUTO 90 % (41-73); Platelet Count 228 K/mm3 (150-400); RDW Coefficient Variation 12.1 % (11.7-14.2); RDW Standard Deviation 41.3 fL (35.1-46.3); Red Blood Cell Count 3.92 M/mm3 (4.30-5.90)
[2024-01-23 06:32] LABS: Albumin, Blood 3.3 g/dL (3.4-5.0); Albumin/Globulin Ratio 0.9 (0.8-1.8); Bilirubin, Total 0.3 mg/dL (0.1-1.0); Bun/Creatinine Ratio 21.4 (12.0-20.0); Calcium, Blood 8.3 mg/dL (8.5-10.1); Creatinine, Blood 1.03 mg/dL (0.60-1.20); Globulin, Blood 3.6 g/dL (2.2-4.0); Potassium, Blood 3.2 mmol/L (3.5-5.5); Total Protein, Blood 6.9 g/dL (6.4-8.2)
[2024-01-23] MEDS ORDERED: Potassium Chloride 10 Meq Tablet SA PO ONE (07:15)
[2024-01-23 07:17] VITALS: BP 147/86
[2024-01-23] MEDS ORDERED: Losartan Potassium 50 MG Tab PO SCH (09:00)
[2024-01-23] MEDS ORDERED: Enoxaparin 40 MG/0.4 ML SYR SC SCH (09:00)
[2024-01-23 09:26] LABS: D-Dimer, Quantitative 0.81 mg/L FEU (0.00-0.52); International Normalized Ratio 1.13
[2024-01-23] MEDS ORDERED: Remdesivir (EUA) 100 MG in NS 250 ML IV SCH (12:00)
[2024-01-23 15:49] VITALS: BP 157/92
--- NOTE | 2024-01-23 17:16 | NUR ---
PT AOX4 AND COOPERATIVE OF CARE. PT CONTINUES TO DO WELL ON 5L O2. PT ABLE TO MAKE ALL NEEDS KNOWN. PT HAS BEEN USING URINAL INDEPENDENTLY. CALL LIGHT WITHIN REACH WILL CONTINUE TO MONITOR.
[2024-01-23] MEDS ORDERED: DEXTROMETHORPHAN/BENZOCAINE 1 EACH LOZENGE MT PRN (17:25)
[2024-01-23 19:29] VITALS: BP 150/93
[2024-01-24 05:16] VITALS: BP 133/86
--- NOTE | 2024-01-24 05:50 | NUR ---
END OF SHIFT SUMMARY PT A&OX4. REMAINS ON 5L O2 VIA NC WHICH IS BASELINE. MONITIORED ON CONT PULSE OX, NO EPISODES OF DESAT DURING NIGHT. PT CONTINUES TO HAVE DYSPNEA ON EXERTION, DECLINING TO INCREASE ACTIVITY OOB AT THIS TIME. PT CHANGED OWN OSTOMY APPLIANCE TO LLQ. NO ACUTE EVENTS OVERNIGHT.
[2024-01-24 06:04] LABS: BASOPHILS ABSOLUTE AUTO 0.04 K/mm3 (0.00-0.23); BASOPHILS PERCENT AUTO 0 % (0-2); EOSINOPHILS PERCENT AUTO 0 % (0-6); Hematocrit 39.2 % (37.0-53.0); Hemoglobin 13.4 g/dL (13.5-17.5); IMMATURE GRAN ABSOLUTE AUTO 0.18 K/mm3 (0.00-0.10); IMMATURE GRAN PERCENT AUTO 1 % (0-1); LYMPHOCYTES ABSOLUTE AUTO 0.64 K/mm3 (0.84-5.20); LYMPHOCYTES PERCENT AUTO 3 % (21-46); MONOCYTES ABSOLUTE AUTO 0.95 K/mm3 (0.16-1.47); MONOCYTES PERCENT AUTO 4 % (4-13); Mean Corpuscular HGB 31.8 pg (26.0-34.0); Mean Corpuscular HGB Conc 34.2 g/dL (31.5-36.5); Mean Corpuscular Volume 93 fL (80-100); Mean Platelet Volume 10.7 fL (9.1-12.4); NEUTROPHILS ABSOLUTE AUTO 23.28 K/mm3 (1.96-9.15); NEUTROPHILS PERCENT AUTO 93 % (41-73); Platelet Count 303 K/mm3 (150-400); RDW Coefficient Variation 12.4 % (11.7-14.2); RDW Standard Deviation 42.5 fL (35.1-46.3); Red Blood Cell Count 4.22 M/mm3 (4.30-5.90); White Blood Cell Count 25.09 K/mm3 (4.00-11.30)
[2024-01-24 06:29] LABS: Albumin, Blood 3.3 g/dL (3.4-5.0); Albumin/Globulin Ratio 0.9 (0.8-1.8); Bilirubin, Total 0.3 mg/dL (0.1-1.0); Bun/Creatinine Ratio 23.9 (12.0-20.0); Calcium, Blood 8.2 mg/dL (8.5-10.1); Creatinine, Blood 1.09 mg/dL (0.60-1.20); Globulin, Blood 3.5 g/dL (2.2-4.0); Potassium, Blood 3.3 mmol/L (3.5-5.5); Total Protein, Blood 6.8 g/dL (6.4-8.2)
[2024-01-24 06:45] LABS: BAND PERCENT MAN 4 % (0-8); BASOPHILS PERCENT MAN 0 % (0-2); EOSINOPHILS PERCENT MAN 0 % (0-6); LYMPHOCYTES PERCENT MAN 2 % (21-46); MONOCYTES PERCENT MAN 0 % (4-13); NEUTROPHILS ABSOLUTE MAN 24.58 K/mm3 (1.96-9.15); SEG NEUTROPHILS PERCENT MAN 94 % (41-73); TOTAL CELLS COUNTED 100
[2024-01-24 07:48] VITALS: BP 140/98
[2024-01-24] MEDS ORDERED: Potassium Chloride 20 MEQ TabCR PO ONE (08:00)
[2024-01-24] MEDS ORDERED: POTCHL20ER PO (13:17)
[2024-01-24] MEDS ORDERED: DECADRON6 M1 PO (13:18)
--- NOTE | 2024-01-24 15:15 | NUR ---
PATIENT D/C'D TO HOME WITH FAMILY. DC INSTRUCTIONS AND EDUCATION DISCUSSED WITH PATIENT AND COPY PROVIDED. [facility] [address] PATIENT DENIES ANY FURTHER QUESTIONS OR CONCERNS.
== END 2024-01-24 15:24 | disposition home or self-care (01) | DRG 177 ==
LOC: ER 05:16 → MEDS 09:55 → ERHOLD 09:55 → MEDS 16:11
PROVIDERS: Family Medicine; Student in an Organized Health Care Education/Training Program; ADMIT Hospitalist
PROC: XW033E5 Introduction of Remdesivir Anti-infective into Peripheral Vein, Percutaneous Approach, New Technology Group 5 (ICD-10-PCS; principal; 2024-01-22)
DX: U07.1 COVID-19 (principal); J96.21 Acute and chronic respiratory failure with hypoxia; J44.1 Chronic obstructive pulmonary disease with (acute) exacerbation; E87.6 Hypokalemia; Z66 Do not resuscitate; I73.9 Peripheral vascular disease, unspecified; Z87.19 Personal history of other diseases of the digestive system; I12.9 Hypertensive chronic kidney disease with stage 1 through stage 4 chronic kidney disease, or unspecified chronic kidney disease; N18.30 Chronic kidney disease, stage 3 unspecified; Z93.3 Colostomy status; F32.9 Major depressive disorder, single episode, unspecified; Z98.890 Other specified postprocedural states; Z90.49 Acquired absence of other specified parts of digestive tract; Z89.9 Acquired absence of limb, unspecified; Z87.891 Personal history of nicotine dependence; Z88.8 Allergy status to other drugs, medicaments and biological substances; Z91.012 Allergy to eggs; Z79.899 Other long term (current) drug therapy; Z99.81 Dependence on supplemental oxygen
CPT/HCPCS: 36415; 71046; 71260; 80053; 83735; 85025; 85379; 85610; 93005; 93010; 94640; 94664; 94762; 96365; 96366; 96375; 96376; 97162; 97165; 97530; 97535; 99285-25; A9270; G0378; J0248; J1650; J2919; J7050; Q9967

== ENCOUNTER 2024-01-28 15:03 | Inpatient (IN) | payer OTHER ==
[~2024-01-28] VITALS: Ht 170.2 cm; Wt 91.5 kg
[~2024-01-28 15:03] MED LIST changes: +DECADRON6 M1 PO
[2024-01-28] MEDS ORDERED: Ketorolac Tromethamine 30mg Vial IV ONE (15:40)
[2024-01-28] MEDS ORDERED: Albuterol 2.5 MG/3 ML VIAL INH SCH ×2 (15:40→19:00)
[2024-01-28] MEDS ORDERED: Ipratropium Bromide INH 0.02% 0.5 mg/2.5ML Vial INH SCH (15:40)
[2024-01-28] MEDS ORDERED: MethylPREDNISolone Sod Succ 125 MG Vial IV ONE (16:50)
[2024-01-28 17:02] LABS: BASOPHILS ABSOLUTE AUTO 0.04 K/mm3 (0.00-0.23); BASOPHILS PERCENT AUTO 1 % (0-2); EOSINOPHILS ABSOLUTE AUTO 0.06 K/mm3 (0.00-0.68); EOSINOPHILS PERCENT AUTO 1 % (0-6); Hematocrit 38.8 % (37.0-53.0); Hemoglobin 13.5 g/dL (13.5-17.5); IMMATURE GRAN ABSOLUTE AUTO 0.33 K/mm3 (0.00-0.10); IMMATURE GRAN PERCENT AUTO 4 % (0-1); LYMPHOCYTES ABSOLUTE AUTO 0.53 K/mm3 (0.84-5.20); LYMPHOCYTES PERCENT AUTO 6 % (21-46); MONOCYTES ABSOLUTE AUTO 0.98 K/mm3 (0.16-1.47); MONOCYTES PERCENT AUTO 12 % (4-13); Mean Corpuscular HGB Conc 34.8 g/dL (31.5-36.5); Mean Corpuscular Volume 92 fL (80-100); NEUTROPHILS ABSOLUTE AUTO 6.57 K/mm3 (1.96-9.15); NEUTROPHILS PERCENT AUTO 77 % (41-73); RDW Coefficient Variation 12.5 % (11.7-14.2); RDW Standard Deviation 41.6 fL (35.1-46.3); Red Blood Cell Count 4.22 M/mm3 (4.30-5.90); White Blood Cell Count 8.51 K/mm3 (4.00-11.30)
[2024-01-28 17:07] LABS: Albumin, Blood 3.2 g/dL (3.4-5.0); Albumin/Globulin Ratio 0.9 (0.8-1.8); Bilirubin, Total 0.6 mg/dL (0.1-1.0); Bun/Creatinine Ratio 15.7 (12.0-20.0); Calcium, Blood 8.1 mg/dL (8.5-10.1); Creatinine, Blood 1.08 mg/dL (0.60-1.20); Globulin, Blood 3.7 g/dL (2.2-4.0); Potassium, Blood 3.5 mmol/L (3.5-5.5); Total Protein, Blood 6.9 g/dL (6.4-8.2)
[2024-01-28 17:19] LABS: Mean Platelet Volume 11.5 fL (9.1-12.4); Platelet Count 193 K/mm3 (150-400)
[2024-01-28] MEDS ORDERED: Ondansetron HCl 2 MG / ML 2ML Vial IV PRN (19:25)
[2024-01-28] MEDS ORDERED: Ipratropium/Albuterol SulF 2.5-0.5MG/3 ML Amp INH PRN (19:30)
[2024-01-28] MEDS ORDERED: Azithromycin 500 MG in NS 250 ML IV SCH (20:00)
[2024-01-28] MEDS ORDERED: Enoxaparin 40 MG/0.4 ML SYR SC SCH (20:00)
[2024-01-28 20:59] LABS: Source, Urine Clean Catch
--- NOTE | 2024-01-28 21:00 | NUR ---
NEW ADMIT PATIENT ADMITTED TO ROOM 308 FROM THE ER. PATIENT ARRIVED TO ROOM VIA GURNEY AND 1 PERSON TRANSPORT. PATIENT ABLE TO SLIDE HIMSELF FROM THE GURMEY TO THE BED. PATIENT ARRIVED TO ROOM WITH 2 PERSONAL BELINGINGS BAGS. PATIENT ON 5L'S O2 UPON ARRIVAL TO FLOOR-THIS IS PATIENTS BASELINE. THIS RN TO ASSUME CARE.
[2024-01-28 21:01] VITALS: BP 161/85
[2024-01-28 21:02] LABS: Appearance, Urine Clear (Clear); Bilirubin, Urine Neg (Neg); Blood, Urine 1+ (Neg); Glucose Qualitative, Urine Neg (Neg); Ketones, Urine 1+ (Neg); Leukocyte Esterase, Urine Neg (Neg); Nitrite, Urine Neg (Neg); Protein, Urine Neg (Neg); Specific Gravity, Urine 1.005 (1.003-1.022); Urobilinogen, Urine NORM (Normal)
[2024-01-28 21:08] LABS: Color, Urine Pale Yellow (P-Yellow)
[2024-01-28 21:09] LABS: Bacteria Rare /hpf; Squamous Epithelial Cells Rare /hpf (Few); White Blood Cells, Urine 0-2 /hpf (0-5)
[2024-01-29] MEDS ORDERED: Albuterol 2.5 MG/3 ML VIAL INH PRN (00:10)
--- NOTE | 2024-01-29 03:06 | NUR ---
HOSPITALIST CONTACTED. CONTACTED AND NOTIFIED OF PATIENTS CHANGE IN CONDITION. DR. VALLEJO ORDERED FOR A STAT CT.
[2024-01-29 03:45] VITALS: BP 121/81
--- NOTE | 2024-01-29 04:35 | NUR ---
SHIFT SUMMARY. PATIENT IS A&OX4. PATIENT IS ABLE TO MAKE HIS NEEDS KNOWN. PATIENT IS ON 5L'S O2 VIA NASAL CANNULA-5L'S IS BASELINE. PATIENT HAVING SOB WITH EXERTION. PATIENT USING THE URINAL INDEPENDENTLY IN ROOM. PATIENT ORIENTED TO ROOM. PATIENT IS ABLE TO SIT UP WITH AN ARM FOR ASSISTANCE. PATIENT REPORTS WEAKNESS. PATIENT HAS SLEPT T/O NIGHT WITH NO COMPLAINTS. BED IS LOCKED IN THE LOWEST POSITION WITH CALL LIGHT IN REACH, CARE IS ONGOING.
[2024-01-29 05:56] LABS: BASOPHILS ABSOLUTE AUTO 0.02 K/mm3 (0.00-0.23); BASOPHILS PERCENT AUTO 0 % (0-2); EOSINOPHILS PERCENT AUTO 0 % (0-6); Hematocrit 40.4 % (37.0-53.0); Hemoglobin 13.7 g/dL (13.5-17.5); IMMATURE GRAN ABSOLUTE AUTO 0.26 K/mm3 (0.00-0.10); IMMATURE GRAN PERCENT AUTO 5 % (0-1); LYMPHOCYTES ABSOLUTE AUTO 0.33 K/mm3 (0.84-5.20); LYMPHOCYTES PERCENT AUTO 6 % (21-46); MONOCYTES ABSOLUTE AUTO 0.35 K/mm3 (0.16-1.47); MONOCYTES PERCENT AUTO 6 % (4-13); Mean Corpuscular HGB 31.6 pg (26.0-34.0); Mean Corpuscular HGB Conc 33.9 g/dL (31.5-36.5); Mean Corpuscular Volume 93 fL (80-100); NEUTROPHILS ABSOLUTE AUTO 4.87 K/mm3 (1.96-9.15); NEUTROPHILS PERCENT AUTO 84 % (41-73); Platelet Count 213 K/mm3 (150-400); RDW Coefficient Variation 12.6 % (11.7-14.2); RDW Standard Deviation 43.5 fL (35.1-46.3); Red Blood Cell Count 4.34 M/mm3 (4.30-5.90); White Blood Cell Count 5.83 K/mm3 (4.00-11.30)
[2024-01-29] MEDS ORDERED: Pantoprazole Sodium 40 MG Tab PO SCH (06:00)
[2024-01-29 06:18] LABS: Albumin, Blood 3.1 g/dL (3.4-5.0); Albumin/Globulin Ratio 0.8 (0.8-1.8); Bilirubin, Total 0.6 mg/dL (0.1-1.0); Bun/Creatinine Ratio 18.5 (12.0-20.0); Calcium, Blood 8.5 mg/dL (8.5-10.1); Creatinine, Blood 1.08 mg/dL (0.60-1.20); Globulin, Blood 3.7 g/dL (2.2-4.0); Potassium, Blood 3.3 mmol/L (3.5-5.5); Total Protein, Blood 6.8 g/dL (6.4-8.2)
[2024-01-29] MEDS ORDERED: Potassium Chloride 20 MEQ TabCR PO ONE (07:25)
[2024-01-29 07:43] VITALS: BP 139/82
[2024-01-29] MEDS ORDERED: MethylPREDNISolone Sod Succ 125 MG Vial IV SCH ×2 (09:00)
[2024-01-29] MEDS ORDERED: Losartan Potassium 50 MG Tab PO SCH (09:00)
[2024-01-29] MEDS ORDERED: Potassium Chloride 20 MEQ TabCR PO SCH (09:00)
[2024-01-29] MEDS ORDERED: PredniSONE 20 MG Tab PO SCH (10:00)
[2024-01-29 15:22] VITALS: BP 162/92
--- NOTE | 2024-01-29 16:31 | NUR ---
PT IS A/OX4, PLEASANT AND COOPERATIVE. THE PT IS ON OXYGEN AT 5L/MIN HIS BASE LINE. PT DENIED ANY PAIN. THE OPT IS A MINIMAL ASSIST UP TO THE CHAIR. THE PT HAS AN OSTOMY THAT HE EMPTIES HIMSELF. PT HAD A CT OF THE HEAD DONE. CALL LIGHT IN REACH, BED IN THE LOW POSITION
[2024-01-29 20:26] VITALS: BP 153/98
[2024-01-29] MEDS ORDERED: Azithromycin 250 MG Tab PO SCH (21:00)
[2024-01-30 03:01] VITALS: BP 131/87
--- NOTE | 2024-01-30 03:18 | NUR ---
SHIFT SUMMARY NO IV. REGULAR DIET. RECEPTIVE TO CARE. ALERT AND OREINTATED X4, ADMITTED FOR ACUTE-ON CHRONIC HYPOXIC RESPITORY FAILURE DUE TO AN ACUTE CHRONIC OBSTRUCTIVE PULMONARY DISEASE EXACERBRATION. PATIENT IS ON 5L OXYGEN. ABLE TO SELF TRANSFER TO [facility]. PATIENT APPEARED TO SLEEP THROUGH THER NIGHT WITHOUT ISSUES. REGULAR DIET. CALL LIGHT IN REACH, BED AT LOW LEVEL.
[2024-01-30 06:03] LABS: Bun/Creatinine Ratio 23.5 (12.0-20.0); Calcium, Blood 8.2 mg/dL (8.5-10.1); Creatinine, Blood 1.02 mg/dL (0.60-1.20); Potassium, Blood 3.9 mmol/L (3.5-5.5)
[2024-01-30 07:12] VITALS: BP 144/99
[2024-01-30] MEDS ORDERED: IPRAT-ALBUT 0.5-3 ML INH (11:30)
[2024-01-30] MEDS ORDERED: PRED20 PO (11:38)
[2024-01-30] MEDS ORDERED: AIRDUO DIGIHAL1 EAC2 IH (11:39)
--- NOTE | 2024-01-30 12:45 | NUR ---
PT DIDCHARGED WITH INSTRUCTIONS- PATIENCE BROUGHT PORTABLE OXYGEN FOR PT TO BE ABLE TO GET HOME HE FORGOT HIS. PT IS ALREADY SET UP WITH CONCENTRATOR FOR CHRONIC O2 HOME USE. RX TO [facility], PT STATES HE WILL BE ABLE TO MARITIME OFFICER. BELONGINGS SENT WITH PT. WHEELCHAIR OUT TO [employer] FOR RIDE HOME.
== END 2024-01-30 12:32 | disposition home health service (06) | DRG 189 ==
LOC: ER 15:03 → MEDS 19:23 → ENPENDDIS 01-30 10:14 → MEDS 01-30 12:32
PROVIDERS: Emergency Medicine; Internal Medicine; ADMIT Internal Medicine
DX: J96.21 Acute and chronic respiratory failure with hypoxia (principal); J44.1 Chronic obstructive pulmonary disease with (acute) exacerbation; G45.9 Transient cerebral ischemic attack, unspecified; Z66 Do not resuscitate; I10 Essential (primary) hypertension; E87.6 Hypokalemia; I73.9 Peripheral vascular disease, unspecified; K21.9 Gastro-esophageal reflux disease without esophagitis; Z87.19 Personal history of other diseases of the digestive system; Z88.8 Allergy status to other drugs, medicaments and biological substances; Z91.012 Allergy to eggs; Z79.899 Other long term (current) drug therapy; Z79.51 Long term (current) use of inhaled steroids; Z90.49 Acquired absence of other specified parts of digestive tract; Z98.890 Other specified postprocedural states; Z87.891 Personal history of nicotine dependence
CPT/HCPCS: 36415; 70450; 71045; 80048; 80053; 81001; 82947; 83880; 84484; 85025; 94640; 94644; 94645; 94664; 94760; 96374; 96375; 99285-25; A9270; G0378; J0456; J1650; J1885; J2919; J7050; J7512

== ENCOUNTER 2024-10-27 02:23 | Inpatient (IN) | payer OTHER ==
[~2024-10-27] VITALS: Ht 172.7 cm; Wt 106.3 kg
[~2024-10-27 02:23] MED LIST changes: +AIRDUO DIGIHAL1 EAC2 IH
[2024-10-27] MEDS ORDERED: Ipratropium/Albuterol SulF 2.5-0.5MG/3 ML Amp INH ONE ×2 (02:30→04:25)
[2024-10-27 02:47] LABS: BASOPHILS ABSOLUTE AUTO 0.02 K/mm3 (0.00-0.23); BASOPHILS PERCENT AUTO 0 % (0-2); EOSINOPHILS ABSOLUTE AUTO 0.14 K/mm3 (0.00-0.68); EOSINOPHILS PERCENT AUTO 2 % (0-6); Hematocrit 39.5 % (37.0-53.0); Hemoglobin 13.4 g/dL (13.5-17.5); IMMATURE GRAN ABSOLUTE AUTO 0.02 K/mm3 (0.00-0.10); IMMATURE GRAN PERCENT AUTO 0 % (0-1); LYMPHOCYTES PERCENT AUTO 8 % (21-46); MONOCYTES ABSOLUTE AUTO 0.82 K/mm3 (0.16-1.47); MONOCYTES PERCENT AUTO 11 % (4-13); Mean Corpuscular HGB 31.7 pg (26.0-34.0); Mean Corpuscular HGB Conc 33.9 g/dL (31.5-36.5); Mean Corpuscular Volume 93 fL (80-100); Mean Platelet Volume 10.2 fL (9.1-12.4); NEUTROPHILS ABSOLUTE AUTO 6.14 K/mm3 (1.96-9.15); NEUTROPHILS PERCENT AUTO 79 % (41-73); Platelet Count 237 K/mm3 (150-400); RDW Coefficient Variation 11.9 % (11.7-14.2); RDW Standard Deviation 40.6 fL (35.1-46.3); Red Blood Cell Count 4.23 M/mm3 (4.30-5.90); White Blood Cell Count 7.74 K/mm3 (4.00-11.30)
[2024-10-27 03:06] LABS: Albumin, Blood 3.8 g/dL (3.4-5.0); Albumin/Globulin Ratio 0.9 (0.8-1.8); Bilirubin, Total 0.5 mg/dL (0.1-1.0); Calcium, Blood 8.6 mg/dL (8.5-10.1); Creatinine, Blood 0.95 mg/dL (0.60-1.20); Globulin, Blood 4.2 g/dL (2.2-4.0); Potassium, Blood 3.4 mmol/L (3.5-5.5)
[2024-10-27] MEDS ORDERED: Potassium Chloride 10 Meq Tablet SA PO ONE (04:25)
[2024-10-27] MEDS ORDERED: Azithromycin 500 MG in NS 250 ML IV ONE (04:25)
[2024-10-27] MEDS ORDERED: NS 1,000 ML IV SCH (04:25)
[2024-10-27] MEDS ORDERED: MethylPREDNISolone Sod Succ 125 MG Vial IV ONE (04:25)
[2024-10-27] MEDS ORDERED: Magnesium Sulf 2 GM/Water 50ML 50 ML IV ONE (04:30)
[2024-10-27] MEDS ORDERED: AZIT250 PO (04:31)
[2024-10-27] MEDS ORDERED: Losartan Potassium 50 MG Tab PO SCH (10:00)
[2024-10-27] MEDS ORDERED: Pantoprazole Sodium 40 MG Tab PO SCH (10:00)
[2024-10-27] MEDS ORDERED: Polyethylene Glycol 3350 17 gm PO PRN (11:45)
[2024-10-27] MEDS ORDERED: Acetaminophen 500 MG Tab PO PRN (11:45)
[2024-10-27 11:55] LABS: Influenza A, PCR NEGATIVE (NEGATIVE); Influenza B, PCR NEGATIVE (NEGATIVE); Resp Syncytial Virus, PCR NEGATIVE (NEGATIVE); SARS-Cov-2 (COVID-19) PCR, MMC NEGATIVE (NEGATIVE)
[2024-10-27 12:59] VITALS: BP 146/110
[2024-10-27] MEDS ORDERED: MULTI-VITAMIN1 EAC2 PO (13:57)
[2024-10-27] MEDS ORDERED: Ibuprofen 400 MG Tab PO PRN (15:05)
[2024-10-27] MEDS ORDERED: Albuterol 2.5 MG/3 ML VIAL INH PRN (15:45)
[2024-10-27 15:58] VITALS: BP 160/99
[2024-10-27] MEDS ORDERED: MethylPREDNISolone Sod Succ 125 MG Vial IV SCH (16:00)
--- NOTE | 2024-10-27 18:13 | NUR ---
PT ADMITTED FROM ER TODAY FOR WORSENING SOB AND COPD EXAACERBATION. SATTING AT 96% ON 5L O2 NASAL CANULA WHICH IS HIS BASELINE. EXPIRATORY WHEEZES THROUGHOUT. ECHO DONE TODAY, RESULTS PENDING. PT REPORTING CHRONIC SHOULDER PAIN, IBUPROFEN GIVEN WITH GOOD EFFECT. SINUS TACHYCARDIA ON TELE, SOB WITH EXERTION. PT HAS OSTOMY, INDEPENDENT WITH CARES AT HOME, DID NOT NEED EMPTYING THIS SHIFT, INDEPENDANT WITH URINAL.
[2024-10-27 19:46] VITALS: BP 184/103
[2024-10-27] MEDS ORDERED: Docusate Sodium/Senna 1 Tab PO SCH (21:00)
[2024-10-27] MEDS ORDERED: Lactobacil 2-S.Thermo-Bifido 1 1 Cap PO SCH (21:00)
[2024-10-28 00:06] VITALS: BP 177/94
--- NOTE | 2024-10-28 04:14 | NUR ---
SHIFT SUMMARY PT ALERT ORIENTED X 4 ABLE TO VERBALIZE NEEDS AMBULATES WITH 1 PERSON SBA TO THE BATHROOM. BP REMAINS HIGH AT 184/103 AND 177/94. ALL OTHER VSS. NO C/O PAIN THIS SHIFT. HAS A COLOSTOMY BAG PUTTING OUT BROWN COLORED STOOL. REMAINS ON 5 L OF O2 VIA NC WHICH IS HIS BASELINE. CONTINUES ON A CONTINUOUS PULSE OX. REMAINS ON SOLUMEDROL Q8HR AND ZITHROMAX QDAY. LABS TO BE DONE THIS AM.HE C/O SOB ON EXERTION. LUNG SOUNDS WITH WHEEZES. RESTING IN BED AT THIS TIME WITH CALL LIGHT IN REACH
[2024-10-28 04:49] LABS: BASOPHILS ABSOLUTE AUTO 0.01 K/mm3 (0.00-0.23); BASOPHILS PERCENT AUTO 0 % (0-2); EOSINOPHILS PERCENT AUTO 0 % (0-6); Hematocrit 39.3 % (37.0-53.0); Hemoglobin 13.4 g/dL (13.5-17.5); IMMATURE GRAN ABSOLUTE AUTO 0.06 K/mm3 (0.00-0.10); IMMATURE GRAN PERCENT AUTO 0 % (0-1); LYMPHOCYTES ABSOLUTE AUTO 0.64 K/mm3 (0.84-5.20); LYMPHOCYTES PERCENT AUTO 4 % (21-46); MONOCYTES ABSOLUTE AUTO 0.45 K/mm3 (0.16-1.47); MONOCYTES PERCENT AUTO 3 % (4-13); Mean Corpuscular HGB 32.1 pg (26.0-34.0); Mean Corpuscular HGB Conc 34.1 g/dL (31.5-36.5); Mean Corpuscular Volume 94 fL (80-100); Mean Platelet Volume 10.2 fL (9.1-12.4); NEUTROPHILS ABSOLUTE AUTO 13.57 K/mm3 (1.96-9.15); NEUTROPHILS PERCENT AUTO 92 % (41-73); Platelet Count 275 K/mm3 (150-400); RDW Coefficient Variation 11.9 % (11.7-14.2); Red Blood Cell Count 4.18 M/mm3 (4.30-5.90); White Blood Cell Count 14.73 K/mm3 (4.00-11.30)
[2024-10-28 04:51] VITALS: BP 161/86
[2024-10-28] MEDS ORDERED: Azithromycin 500 MG in NS 250 ML IV SCH (05:00)
[2024-10-28] MEDS ORDERED: NS 250 ML IV PRN (05:20)
[2024-10-28 05:21] LABS: Bun/Creatinine Ratio 26.5 (12.0-20.0); Calcium, Blood 8.5 mg/dL (8.5-10.1); Creatinine, Blood 0.94 mg/dL (0.60-1.20); Potassium, Blood 3.8 mmol/L (3.5-5.5)
[2024-10-28 07:34] VITALS: BP 127/86
[2024-10-28] MEDS ORDERED: Enoxaparin 40 MG/0.4 ML SYR SC SCH (09:00)
[2024-10-28 11:46] VITALS: BP 151/92
[2024-10-28 15:22] VITALS: BP 164/92
--- NOTE | 2024-10-28 17:28 | NUR ---
PT IS AOX4 AND COOPERATIVE OF CARE. NOT ACUTE CHANGES AT THIS TIME. PT USES URINAL AT BEDSIDE AND TAKE CARE OF HIS OSTOMY ON HIS OWN. PT USES CALL LIGHT APPROPRIATEL AND IT IS IN REACH. PT DOING WELL ON 5L O2 WILL CONTINUE TO MONITOR.
[2024-10-28 20:17] VITALS: BP 155/97
--- NOTE | 2024-10-29 04:36 | NUR ---
SHIFT SUMMARY PT ALERT ORIENTED ABLE TO VERBALIZE NEEDS GETS UP TO BATHROOM WITH 1 PERSON SBA. NO C/O PAIN THIS SHIFT. HE HAS A COLOSTOMY BAG THAT HE MANAGES HIMSELF. CONTIUES ON 5L VIA NC WHICH IS HIS BASELINE. HE DOES GET SOB ON EXERTION. REMAINS ON ZITHROMAX ORDERED. REMAINS ON A CONTINUOUS PULSE OX SATTING AT 98%. RESTING IN BED AT THIS TIME WITH CALL LIGHT IN REACH
[2024-10-29 05:38] VITALS: BP 146/83
[2024-10-29 07:26] VITALS: BP 161/95
[2024-10-29 11:36] VITALS: BP 163/100
[2024-10-29 15:41] VITALS: BP 170/94
--- NOTE | 2024-10-29 16:58 | NUR ---
NO ACUTE CHANGES PT HAS BEEN DOING WELL ON 4L O2. PT STILL GET VERY SOB WITH ANY REAL PHYSICAL ACTIVITY. PT STATES HE IS DOING WELL LONG HE DOES NOT MOVE AROUND TO MUCH. CURRENTL NO DISTRESS NOTED AND CALL LIGHT IN REACH.
[2024-10-29 20:34] VITALS: BP 176/106
--- NOTE | 2024-10-30 04:05 | NUR ---
SHIFT SUMMARY PT ALERT ORIENTED ABLE TO VERBALIZE NEEDS GETS UP TO BATHROOM WITH 1 PERSON ASSIST. HE USES THE URINAL AND HAS A COLOSTOMY WHICH HE CAN MANAGE HIMSELF. NO C/O PAIN THIS SHIFT. HE SEEMS REALLY DEPRESSED AND SAID THAT HE KNOWS HES GOING TO AND THAT HE DONT WANT TO BE ALONE. THERE HAVING A CONFERANCE THIS AM WITH HIS FAMILY TO DISCUSS HIS PLAN. HIS BP WAS ELEVATED AT 176/106. HE SEEMS VERY IRRITABLE AND GETS UPSET WITH EVERYTHING. CONTINUES ON A COONTINUOUS PULSE OX SATTING AT 97% ON 4L. HES BEEN SLEEPING ON AND OFF THIS SHIFT. IN BED AT THIS TIME WITH CALL LIGHT IN REACH
[2024-10-30 05:10] LABS: Hematocrit 40.5 % (37.0-53.0); Hemoglobin 13.4 g/dL (13.5-17.5); Mean Corpuscular HGB 32.1 pg (26.0-34.0); Mean Corpuscular HGB Conc 33.1 g/dL (31.5-36.5); Mean Corpuscular Volume 97 fL (80-100); Mean Platelet Volume 10.4 fL (9.1-12.4); Platelet Count 290 K/mm3 (150-400); RDW Coefficient Variation 12.1 % (11.7-14.2); RDW Standard Deviation 43.5 fL (35.1-46.3); Red Blood Cell Count 4.17 M/mm3 (4.30-5.90); White Blood Cell Count 20.87 K/mm3 (4.00-11.30)
[2024-10-30 05:26] VITALS: BP 169/91
[2024-10-30 05:43] LABS: Albumin, Blood 3.3 g/dL (3.4-5.0); Anion Gap 8 mmol/L (3-11); Blood Urea Nitrogen 28 mg/dL (8-24); CO2, Blood 35 mmol/L (21-32); Calcium, Blood 8.1 mg/dL (8.5-10.1); Chloride, Blood 99 mmol/L (98-108); Glomerular Filtration Rate 81 (60-); Glucose, Blood 99 mg/dL (70-99); Magnesium, Blood 2.6 mg/dL (1.6-2.4); Phosphorus, Blood 3.5 mg/dL (2.5-4.9); Potassium, Blood 3.6 mmol/L (3.5-5.5); Sodium, Blood 138 mmol/L (136-145)
[2024-10-30 07:51] VITALS: BP 166/87
[2024-10-30] MEDS ORDERED: PredniSONE 20 MG Tab PO SCH (09:00)
[2024-10-30] MEDS ORDERED: GuaiFENesin 600 MG TabCR PO SCH (11:00)
--- NOTE | 2024-10-30 14:01 | NUR ---
Met with pt and his sister and brother in law. The patient states he lives in [place] in a [address] apartment, while his sister and brother in law live in [place] and are in the process of moving to [place]. Pt states he is unable to care for himself any longer. He states he is unable to ambulate more than about 3 feet without becoming extremely SOB and needing recovery time. He states he is unable to cook, toilet or shower due to deconditioning and severe SOB. Pt asked if the doctor could get him into an assisted living, and I requested CM visit the patient and sister, to help with getting the long-term medicaid process started.
[2024-10-30 15:20] VITALS: BP 172/93
[2024-10-30] MEDS ORDERED: HydrALAZINE HCl 10 MG Tab PO PRN (15:30)
--- NOTE | 2024-10-30 17:08 | NUR ---
NO ACUTE CHANGES PT CONTINUES ON 4l O2 WILL ONLY DESAT WHEN HE MOVES TO A CHAIR OR STANDS. PT HAD SISTER IN TO SPEAK WITH CASEMANGER AND PALLIATIVE CARE TODAY. NO DISTRESS NOTED CURRENTLY. CALL LIGHT WITHIN REACH WILL CONTINUE TO MONITOR.
[2024-10-30 21:34] VITALS: BP 177/95
--- NOTE | 2024-10-30 22:33 | NUR ---
NURSE NOTE PATIENT SPOKE TO THIS RN AT LENGTH ABOUT POSSIBLE DISCHARGE ISSUES AND THE CONCERN FOR HAVING A PLACE TO GO AFTER DISCHARGE PATIENT LIVES ALONE.
--- NOTE | 2024-10-31 04:34 | NUR ---
SHIFT SUMMARY PATIENT IS ALERT AND ORIENTED. PATIENT HAS HAD NO ACUTE EVENTS THIS SHIFT. VITAL SIGNS REVIEWED. PATIENTS BP HAS BEEN ELEVATED AND MEDICATED PER EMAR. PATIENT HAS HAD NO COMPLAINTS OF PAIN, NAUSEA, SOB OR NAUSEA THIS SHIFT. PATIENT HAS BEEN ON 4L THIS SHIFT WITH DESATS NOTATED ONLY WITH MOVEMENT. PATIENT HAS VOCALIZED CONCERNS FOR DISCHARGE. PATIENT HAS COLOSTOMY WHICH PATIENT MANAGES HIMSELF AND CAN VOCALIZE NEEDS APPROPRIATELY. PATIENT HAS HAD GOOD URINE OUTPUT. PATIENT HAS BEEN SLEEPING MOST OF SHIFT. BED IN LOCKED AND LOWEST POSITION. CALL LIGHT IN PLACE
[2024-10-31 04:47] VITALS: BP 170/93
[2024-10-31 05:10] LABS: BASOPHILS ABSOLUTE AUTO 0.09 K/mm3 (0.00-0.23); BASOPHILS PERCENT AUTO 1 % (0-2); EOSINOPHILS ABSOLUTE AUTO 0.01 K/mm3 (0.00-0.68); EOSINOPHILS PERCENT AUTO 0 % (0-6); Hemoglobin 14.1 g/dL (13.5-17.5); IMMATURE GRAN ABSOLUTE AUTO 0.38 K/mm3 (0.00-0.10); IMMATURE GRAN PERCENT AUTO 3 % (0-1); LYMPHOCYTES ABSOLUTE AUTO 1.76 K/mm3 (0.84-5.20); LYMPHOCYTES PERCENT AUTO 13 % (21-46); MONOCYTES ABSOLUTE AUTO 1.17 K/mm3 (0.16-1.47); MONOCYTES PERCENT AUTO 9 % (4-13); Mean Corpuscular HGB 32.3 pg (26.0-34.0); Mean Corpuscular HGB Conc 33.6 g/dL (31.5-36.5); Mean Corpuscular Volume 96 fL (80-100); Mean Platelet Volume 10.4 fL (9.1-12.4); NEUTROPHILS ABSOLUTE AUTO 10.42 K/mm3 (1.96-9.15); NEUTROPHILS PERCENT AUTO 75 % (41-73); Platelet Count 255 K/mm3 (150-400); RDW Coefficient Variation 11.9 % (11.7-14.2); RDW Standard Deviation 42.3 fL (35.1-46.3); Red Blood Cell Count 4.36 M/mm3 (4.30-5.90); White Blood Cell Count 13.83 K/mm3 (4.00-11.30)
[2024-10-31 05:30] LABS: Bun/Creatinine Ratio 26.3 (12.0-20.0); Calcium, Blood 7.9 mg/dL (8.5-10.1); Creatinine, Blood 0.95 mg/dL (0.60-1.20); Potassium, Blood 3.6 mmol/L (3.5-5.5)
[2024-10-31 07:15] VITALS: BP 171/106
[2024-10-31] MEDS ORDERED: AmLODIPine Besylate 5 MG Tab PO SCH (09:00)
[2024-10-31] MEDS ORDERED: Morphine Sulfate 20 MG/1ML 1 ML Oral Syringe PO PRN (12:30)
--- NOTE | 2024-10-31 19:09 | NUR ---
SHIFT SUMMARY: PT A&O X4. MOSTLY COOPERATIVE WITH CARE. PT UNMOTIVATED T/O SHIFT TO GO TO RESTROOM AND STAY OOB. STAFF AND DR. TY EDUCATED PT REGARDING IMPORTANCE OF OOB AND UP FOR MEALS. PT STATED AT BEGINNING OF SHIFT THAT HE HAS NOWHERE TO GO WHEN LEAVING AND THAT WE ARE GOING TO "THROW HIM OUT ON THE STREETS." SPOKE WITH CASE MANAGEMENT WHO STATED PT HAS APARTMENT BUT NEEDS CAREGIVER ASSISTANCE. PLAN FOR HOME HEALTH UPON DISCHARGE. PT REMAINS ON 2L MAINTAINING SATS >92%. ON CONT BIOX. CALL LIGHT IN REACH. IN CHAIR AT THIS TIME.
[2024-10-31 19:23] VITALS: BP 176/91
--- NOTE | 2024-11-01 04:12 | NUR ---
SHIFT SUMMARY PATIENT IS ALERT AND ORIENTED. PATIENT HAS HAD NO ACUTE EVENTS THIS SHIFT. PATIENT HAS HAD NO COMPLAINTS OF SOB, NAUSEA, VOMITTING OR PAIN. PATIENT HAS BEEN RESTING MOST OF SHIFT. PATIENT HAS BEEN MANAGING COLOSTOMY THIS SHIFT. PATIENT HAS BEEN ON 4L ALL SHIFT WITH NO DESATS WITH MOVEMENT. BED IN LOCKED AND LOWEST POSITION.
[2024-11-01 04:14] VITALS: BP 176/95
[2024-11-01 08:14] VITALS: BP 144/91
[2024-11-01] MEDS ORDERED: Sertraline HCl 50 MG Tab PO SCH (12:15)
[2024-11-01 16:23] VITALS: BP 162/93
--- NOTE | 2024-11-01 16:37 | NUR ---
SHIFT SUMMARY PT WORKED WITH THERAPY THIS AM AND GOT UP TO CHAIR FOR BREAKFAST. PT HAS REMAINED IN HIS CHAIR ALL DAY, AMBULATING TO THE BATHROOM INDEPENDENTLY NEEDED. PT MANAGING HIS COLOSTOMY. O2 REMAINS AT 4L O2, SATING IN THE 90S WITH THIS. PT REPORTED FEELING SOB FOR A SHORT PERIOD OF TIME, BUT STATED IT PASSED QUICKLY. SATS REMAINED IN THE 90S T/O EVENT. PT STATES THE DOSE OF MORPHINE HE RECIEVED DIDNT HELP WITH HIS SOB MUCH. PT REFUSED SERTRALINE ORDER HE STATED HE HAS HAD A POOR REACTION TO THAT MEDICATION MAKING HIM "JITTERY" IN THE PAST. NO OTHER ACUTE CHANGES IN ASSESSMENT AT THIS TIME. VS REVIEWED. BED BATH COMPLETED TODAY. CALL LIGHT IN REACH. DENIES OTHER NEEDS AT THIS TIME.
[2024-11-01 20:53] VITALS: BP 161/91
[2024-11-02 02:56] VITALS: BP 142/74
--- NOTE | 2024-11-02 04:29 | NUR ---
SHIFT SUMMARY PT ALERT ORIENTED X 4 ABLE TO VERBALIZE NEEDS GETS UP AD RADHA TO THE BATHROOM. HE HAS A COLOSTOMY BAG WHICH HES ABLE TO MANAGE HIMSELF. VSS ON 4L O2 SATTING AT 93-96%. REMAINS ON A CONTINUOUS PULSE OX. HE DOES GET A LITTLE SOB ON EXERTION. RESTING IN BED AT THIS TIME WITH CALL LIGHT IN REACH
[2024-11-02 07:51] VITALS: BP 158/89
--- NOTE | 2024-11-02 09:19 | NUR ---
ASSUMED CARE OF PT. A/O VSS PT INDEPENDANT IN ROOM, PT UNSURE IF HE IS READY TO BE DISCHARGED. PT IS IND IN ROOM AND CAN MAKE NEEDS KNOWN. CALL LIGHT WITHIN REACH COLOSTOMY CARED FOR BY PT.
[2024-11-02] MEDS ORDERED: Ipratropium/Albuterol SulF 2.5-0.5MG/3 ML Amp INH PRN (11:00)
[2024-11-02] MEDS ORDERED: Metoprolol Tartrate 25 MG Tab PO SCH (11:00)
[2024-11-02] MEDS ORDERED: Mometasone/Formoterol MDI 200/5 mcg 13 GM INH SCH (11:30)
[2024-11-02] MEDS ORDERED: Metoprolol Succinate 50 MG TABCR PO SCH (12:00)
[2024-11-02 12:15] LABS: Bun/Creatinine Ratio 24.6 (12.0-20.0); Calcium, Blood 8.6 mg/dL (8.5-10.1); Creatinine, Blood 1.14 mg/dL (0.60-1.20); Potassium, Blood 3.3 mmol/L (3.5-5.5)
[2024-11-02] MEDS ORDERED: Potassium Chloride 20 MEQ TabCR PO ONE (14:00)
[2024-11-02 16:48] VITALS: BP 147/90
--- NOTE | 2024-11-02 17:57 | NUR ---
pt worked with PT andbecame sob with exertion, pt maintained o2 sat but heart rate increased. md was made aware and pt was medicated. pt back in chair and back to baseline. possible discharge in the morning.
[2024-11-02 20:17] VITALS: BP 148/97
[2024-11-03 03:49] VITALS: BP 147/99
--- NOTE | 2024-11-03 04:01 | NUR ---
SHIFT SUMMARY PT ALERT ORIENTED ABLE TO VERBALIZE NEEDS GETS UP AD RADHA IN HIS ROOM AND TO BATHROOM HE HAS A COLOSTOMY WHICH HE MANAGES HIMSELF. VSS ON 4L OF O2 SATTING AT 93%. HE GETS SOB ON EXERTION. HE HAS A MEETING WITH CASE MANAGEMENT TODAY TO APPLY FOR MEDICAID BENEFITS. HES UNSURE IF HE WILL BE DISCHARGING TO HOME OR TO A SNF. HE REMAINS ON A CONTINUOUS PULSE OX. RESTING IN BED AT THIS TIME WITH CALL LIGHT IN REACH
[2024-11-03 07:42] VITALS: BP 140/86
[2024-11-03] MEDS ORDERED: PredniSONE 20 MG Tab PO SCH (09:00)
--- NOTE | 2024-11-03 15:59 | NUR ---
SUMMARY PATIENT MAINTAING O2 SATS ON 4L NC. STILL SOB WITH EXERTION. ENCOURAGE MOVEMENT AND AMBULATION. CONTINOUS PULSE OX MONTORING. SHOWER TODAY.
--- NOTE | 2024-11-03 16:45 | NUR ---
Outpatient Palliative consult sent to [place] as planned for extra support. The patient is discharging home along on Wednesday, 11/05.
[2024-11-03 16:46] VITALS: BP 136/81
[2024-11-03 19:08] VITALS: BP 126/78
--- NOTE | 2024-11-04 03:49 | NUR ---
SHIFT SUMM: PT IS AN 68 YO DNR PT ADMITTED FOR COPD EXACERBATION.PT HAS BEEN RESTING MOST OF THE SHIFT IN BED OR IN HIS CHAIR AND IS IND IN THE ROOM AND CONT TO URINE AND STOOL. PT HAS A LLQ COLOSTOMY BAG THAT HE MANAGES HIMSELF AND THE BAG WAS LAST CHANGED 11/02/24. PT FELT BETTER TODAY AND IT WAS REPORTED TO ME THAT HE WAS ABLE TO SHOWER/ PT STILL GETS SOME SOB WHEN HE MOVES WITH FWW AROUND THE ROOM BUT RECOOPS QUICKLY. PT HAS MAINTAINED 02 SATS AND FROM 92-96% ON 4L NC THIS SHIFT. PT CONTINUES TO BE ON CONTINUOUS PULSE OX FOR NOW. PT DECLINED STOOL SOFTNER THIS EVENING AND REPORTS PAIN BEING MANAGED WELL. PT MAKES NEEDS KNOWN AND HAS CALL LIGHT IN REACH.
[2024-11-04 04:14] VITALS: BP 142/85
[2024-11-04 08:09] VITALS: BP 135/76
[2024-11-04 15:52] VITALS: BP 130/77
--- NOTE | 2024-11-04 18:17 | NUR ---
SHIFT SUMMARY PT A&OX4. PT ADMITTED DUE TO COPD EXAC. PT ON 4L OF O2. USES 5L AT BASE. CONT. PULSE OX ON, SPO2 IS 93%. PT HAS NO IV ORDER. PT HAS LLQ OSTOMY, MANAGES IT HIMSELF. PT STATES SOB CONSTANT. PT GETS TACHYPNIC WITH AMBULATION. EDUCATED PT ABOUT ROXANOL, PT REFUSED. PT IN CHAIR TODAY. PT INDEPENDENT WITH FWW, UP IN CHAIR FOR MEALS. CALLS APPROPRIATE. CALL LIGHT IN REACH. NO ACUTE CHANGES DURING SHIFT. VSS.
[2024-11-04 20:36] VITALS: BP 144/87
[2024-11-05 01:57] VITALS: BP 133/90
--- NOTE | 2024-11-05 03:00 | NUR ---
SHIFT SUMM: PT HAS BEEN RELAXING IN CHAIR AND AMBULATES IN ROOM AND TO BED W/FWW.PT CONTINUES TO BE ON CONT PULSE OX AND MAINTAINS SATS IN MID 90'S ON 4L OF NC. PT HAS HAD A BM IN COLOSTOMY BAG AND NEEDED SOME EXTR FABRIC TAPE FOR LEAKAGE TO HOLD COLOSTOMY BAG IN PLACE. PT MANAGES HIS OWN COLOSTOMY BAG AND DID NOT WANT A NEW BAG.PT TOOK NIGHT TIME MEDS WWW AND REFUSED PAIN MEDICATION AND BOWEL CARE MEDS. PT REPORTS NO PAIN AND SOMETIMES STILL GETS SOB W/EXCERTION BUT TATES THIS IS NORMAL FOR HIM. PT HAS CALL LIGHT IN REACH AND MAKES NEEDS KNOWN.
[2024-11-05 07:39] VITALS: BP 157/78
[2024-11-05] MEDS ORDERED: Mucinex600 MG PO (12:09)
[2024-11-05] MEDS ORDERED: Amlodipine Besyl5 MG PO (12:09)
[2024-11-05] MEDS ORDERED: METO100 PO (12:10)
[2024-11-05] MEDS ORDERED: PRED20 PO (12:11)
[2024-11-05] MEDS ORDERED: DOCUZEN 8.6-501 EACH PO (12:13)
--- NOTE | 2024-11-05 14:20 | NUR ---
DISCHARGE NOTE PT A&OX4. PT ADMITTED DUE TO COPD EXAC. PT REPORTS CONSTANT CHRONIC SOB. NO ACUTE CHANGES DURING SHIFT. CONT. PULSE OX SHOWED PT AT 92% AT REST. HOME O2 EVAL COMPLETE. RESP THERAPY RECOMENDED 5L OF O2. PT HAS LLQ OSTOMY, MANAGES IT HIMSELF. PT USES FWW WHEN AMBULATING. PT EATS ADEQUATE. PT REQUESTED [facility] ALTHOUGH NOT OPENED TILL TOMORROW, MEDS FAXED TO PHARMACY. WENT OVER DISCHARGE INSTRUCTIONS AND MEDS. PT REPORTED "UNDERSTAND INSTRUCTIONS." PT HAS NO IV ORDER. TELE D/C. PT ESCORTED BY [employer] VIA WHEELCHAIR TO PT ENTERANCE. PT LEFT WITH PERSONAL BELONGINGS. VSS.
== END 2024-11-05 13:03 | disposition home health service (06) | DRG 190 ==
LOC: ER 02:23 → MEDS 02:24
PROVIDERS: Emergency Medicine; Internal Medicine; Student in an Organized Health Care Education/Training Program; ADMIT Internal Medicine
DX: J44.1 Chronic obstructive pulmonary disease with (acute) exacerbation (principal); J96.21 Acute and chronic respiratory failure with hypoxia; E87.1 Hypo-osmolality and hyponatremia; I10 Essential (primary) hypertension; I73.9 Peripheral vascular disease, unspecified; E86.0 Dehydration; Z66 Do not resuscitate; F41.9 Anxiety disorder, unspecified; E87.6 Hypokalemia; Z79.899 Other long term (current) drug therapy; Z79.51 Long term (current) use of inhaled steroids; Z91.012 Allergy to eggs; Z79.52 Long term (current) use of systemic steroids; Z87.19 Personal history of other diseases of the digestive system; Z90.49 Acquired absence of other specified parts of digestive tract; Z89.029 Acquired absence of unspecified finger(s); Z93.3 Colostomy status; Z87.891 Personal history of nicotine dependence; Z86.73 Personal history of transient ischemic attack (TIA), and cerebral infarction without residual deficits; Z88.8 Allergy status to other drugs, medicaments and biological substances; Z99.81 Dependence on supplemental oxygen
CPT/HCPCS: 0241U; 36415; 71046; 71260; 80048; 80053; 80069; 83735; 83880; 84484; 85025; 85027; 93005; 93010; 94640; 94664; 94761; 94762; 96365-59; 96367; 96372; 96375-59; 96376; 97110; 97110-CQ; 97112; 97116; 97161; 97530; 99285-25; A9270; G0378; J0456; J1650; J2919; J3475; J7030; J7050; J7512; Q9967